=== PATIENT | female | born 1970 | race Caucasian/White ===

== ENCOUNTER 2016-11-10 12:51 | Inpatient (IN) | payer BC ==
--- NOTE | 2016-11-10 13:00 | ER Document Report ---
ED Medical Screen (RME) - General Stated Complaint: SHORTNESS OF BREATH Information source: Patient Notes: Patient complains of difficulty breathing x 4 days. Patient was given nebulizer treatments, Zofran, Rocephin and Solu-Medrol at her doctor's office prior to arrival. Temperature of 101, patient was given Tylenol per EMS. Patient brought a copy of her x-ray on disc. Pt was told she had pneumonia. hx: Diabetes, hypertension, asthma I have greeted and performed a rapid initial assessment of this patient. A comprehensive ED assessment and evaluation of the patient, analysis of test results and completion of the medical decision making process will be conducted by additional ED providers. Physical Exam - Vital signs Vitals: Temp Pulse Resp BP Pulse Ox 100.1 F 108 H 16 129/47 H 94 11/10/16 13:04 11/10/16 13:04 11/10/16 13:04 11/10/16 13:04 11/10/16 13:04 - Respiratory Respiratory status: No respiratory distress Breath sounds: Nonproductive cough, Rhonchi, Wheezing Course - Vital Signs Vital signs: Temp Pulse Resp BP Pulse Ox 100.1 F 108 H 16 129/47 H 94 11/10/16 13:04 11/10/16 13:04 11/10/16 13:04 11/10/16 13:04 11/10/16 13:04
[2016-11-10] MEDS ORDERED: IPRATROPIUM/ALBUTEROL 0.5-2.5 MG/3 ML AMPUL NEB ONE (13:20)
[2016-11-10 14:22] LABS: ABSOLUTE BASOPHILS # (AUTO) 0.1 10^3/uL (0.0-0.2); ABSOLUTE MONOCYTES (AUTO) 0.6 10^3/uL (0.1-1.4); ABSOLUTE NEUT (AUTO) 17.9 10^3/uL (1.7-8.2); BASOPHILS % (AUTO) 0.3 % (0-2); EOSINOPHILS % (AUTO) 0.1 % (0-6); HEMATOCRIT 37.4 % (36.0-47.0); HEMOGLOBIN 12.1 g/dL (12.0-15.5); HGB HCT DIFFERENCE -1.1; LYMPHOCYTES % (AUTO) 5.3 % (13-45); MEAN CORPUSCULAR HEMOGLOBIN 27.6 pg (27.0-33.4); MEAN CORPUSCULAR HGB CONC 32.3 g/dL (32.0-36.0); MEAN CORPUSCULAR VOLUME 86 fl (80-97); MONOCYTES % (AUTO) 2.9 % (3-13); RED BLOOD COUNT 4.38 10^6/uL (3.72-5.28); RED CELL DISTRIBUTION WIDTH 15.1 % (11.5-14.0); SEGMENTED NEUTROPHILS % (AUTO) 91.4 % (42-78); WHITE BLOOD COUNT 19.5 10^3/uL (4.0-10.5)
[2016-11-10 14:33] LABS: ALANINE AMINOTRANSFERASE 48 U/L (9-52); ALBUMIN 3.7 g/dL (3.5-5.0); ALKALINE PHOSPHATASE 143 U/L (38-126); ANION GAP 14 (5-19); ASPARTATE AMINO TRANSFERASE 31 U/L (14-36); BILIRUBIN,TOTAL 1.2 mg/dL (0.2-1.3); BLOOD UREA NITROGEN 17 mg/dL (7-20); CALCIUM 8.8 mg/dL (8.4-10.2); CARBON DIOXIDE 25 mmol/L (22-30); CHLORIDE 94 mmol/L (98-107); CREATININE RESULT 1.03 mg/dL (0.52-1.25); POTASSIUM 4.3 mmol/L (3.6-5.0); SODIUM 132.7 mmol/L (137-145); TOTAL PROTEIN 7.1 g/dL (6.3-8.2)
[2016-11-10 14:40] LABS: GLUCOSE 432 mg/dL (75-110)
[2016-11-10] MEDS ORDERED: NORMAL SALINE 1000 ML 1,000 ML IV ONE (16:19)
--- NOTE | 2016-11-10 17:29 | ER Document Report ---
ED Respiratory Problem - General Chief Complaint: Breathing Difficulty Stated Complaint: SHORTNESS OF BREATH Mode of Arrival: Ambulatory Information source: Patient Notes: 46-year-old female presents to the emergency department referred from [facility] urgent care for possible pneumonia and uncontrolled blood glucose. Patient reports was seen earlier today for cough, difficulty breathing , and chills that she has had for approximately the past 3 days. Reports history of type I diabetes but states does not know what her blood sugar is normally at home as she does not check it. Was found to be in the 400s at urgent care. Patient denies chest pain, shortness of breath, nausea or vomiting. Patient was given dose of Solu-Medrol IM, nebulized albuterol/ ipratropium, and 1 g Rocephin at urgent care prior to arrival. TRAVEL OUTSIDE OF THE [place] IN LAST 30 DAYS: No - HPI Patient complains to provider of: Cough, Short of breath Duration: Worse/persistent Initiating Event: URI Severity: Mild Short of Breath: Mild Cough: Productive Sputum amount: Small Sputum color: White Similar symptoms previously: Yes Recently seen / treated by doctor: Yes - Related Data Allergies/Adverse Reactions: erythromycin base Allergy (Verified 11/10/16 13:21) ketorolac [From Toradol] Allergy (Verified 11/10/16 13:21) Home Medications: Current Home Medications Chlorpheniramine Maleate [Chlortabs] 4 mg PO BID 11/10/16 [History] Fluticasone Propionate [Flonase Nasal [place] 50 Mcg/[place] 16 gm] 1 spray NASL Q12 11/10/16 [History] Hum Insulin NPH/Reg Insulin Hm [Insulin Inj 70-30 (100 Unit/1 ml) 3 ml Vial] 20 unit SUBCUT BID 11/10/16 [History] Insulin Glargine,Hum.rec.anlog [Lantus] 100 unit SQ QHS 11/10/16 [History] Insulin Regular, Human [Novolin R (Reg) Insulin 100 unit/mL] 30 unit SUBCUT BIDACBS 11/10/16 [History] Losartan/Hydrochlorothiazide [Hyzaar 100-25 Tablet] 1 each PO DAILY 11/10/16 [ History] Past Medical History - General Information source: Patient - Social History Smoking Status: Never Smoker Chew tobacco use (# tins/day): No Frequency of alcohol use: None Drug Abuse: None Lives with: Family Family History: Reviewed & Not Pertinent Patient has suicidal ideation: No Patient has homicidal ideation: No - Past Medical History Cardiac Medical History: Reports: Hx Hypercholesterolemia, Hx Hypertension Endocrine Medical History: Reports: Hx Diabetes Mellitus Type 1 Renal/ Medical History: Denies: Hx Peritoneal Dialysis Surgical Hx: Negative - Immunizations Hx Diphtheria, Pertussis, Tetanus Vaccination: Yes Review of Systems - Review of Systems Constitutional: See HPI EENT: No symptoms reported Cardiovascular: No symptoms reported Respiratory: See HPI Gastrointestinal: No symptoms reported Genitourinary: No symptoms reported Female Genitourinary: No symptoms reported Musculoskeletal: No symptoms reported Skin: No symptoms reported Hematologic/Lymphatic: No symptoms reported Neurological/Psychological: No symptoms reported -: Yes All other systems reviewed and negative Physical Exam - Vital signs Vitals: Temp Pulse Resp BP Pulse Ox 100.1 F 108 H 16 129/47 H 94 11/10/16 13:04 11/10/16 13:04 11/10/16 13:04 11/10/16 13:04 11/10/16 13:04 Interpretation: Normal - General General appearance: Alert In distress: None - HEENT Head: Normocephalic, Atraumatic Eyes: Normal Conjunctiva: Normal Eyelashes: Normal Pupils: PERRL Ears: Normal External canal: Normal Tympanic membrane: Normal Sinus: Normal Nasal: Normal Mouth/Lips: Normal Mucous membranes: Normal, Moist Pharynx: Normal. No: Blood in hypopharynx, Erythema, Exudate, Peritonsillar abscess, Post nasal drainage, Retropharyngeal abscess, Tonsillar hypertrophy, Uvular edema, Potential airway comprom., Other Neck: Normal. No: Anterior cervical chain, Posterior cervical chain, Lymphadenopathy, Meningismus, Subcutaneous emphysema - Respiratory Respiratory status: No respiratory distress Chest status: Nontender Breath sounds: Decreased air movement - Left lower, Productive cough. No: Rhonchi, Stridor, Wheezing Chest palpation: Normal - Cardiovascular Rhythm: Regular Heart sounds: Normal auscultation Murmur: No Pulses: Normal: Radial Normal capillary refill: Yes - Abdominal Inspection: Normal Distension: No distension Bowel sounds: Normal Tenderness: Nontender Organomegaly: No organomegaly - Back Back: Normal, Nontender - Extremities General upper extremity: Normal inspection, Nontender, Normal color, Normal ROM , Normal strength, Normal temperature. No: Tender, Edema General lower extremity: Normal inspection, Nontender, Normal color, Normal ROM , Normal strength, Normal temperature, Normal weight bearing. No: Tender, Edema - Neurological Neuro grossly intact: Yes Cognition: Normal Orientation: AAOx4 Ned Coma Scale Eye Opening: Spontaneous Ned Coma Scale Verbal: Oriented [place] Coma Scale Motor: Obeys Commands [place] Coma Scale Total: 15 Speech: Normal Motor strength normal: LUE, RUE, LLE, RLE Sensory: Normal - Psychological Associated symptoms: Normal affect, Normal mood - Skin Skin Temperature: Warm Skin Moisture: Dry Skin Color: Normal Skin Turgor: Elastic Course - Re-evaluation Re-evalutation: 11/10/16 17:30 Patient hemodynamically stable, in no distress, afebrile. Patient's blood glucose was 430 mg/dL patient took afternoon/evening dose of her home insulin and is currently receiving normal saline bolus. No suggestion of DKA at this time. Pending recheck blood glucose. Possible left lower lobe pneumonia on x- ray. Patient presentation and findings were discussed with hospitalist Dr. Zaman who agrees to assume care, evaluated in the ED, and admit patient to inpatient medical unit. Findings and plan discussed with patient who verbalized understanding and agrees with plan. Patient presentation and findings were discussed with ED physician Dr. Piper was involved in treatment plan per [facility] guidelines. - Vital Signs Vital signs: Temp Pulse Resp BP Pulse Ox 98.1 F 88 17 137/63 H 98 11/10/16 17:04 11/10/16 17:06 11/10/16 17:06 11/10/16 17:38 11/10/16 17:38 - Laboratory Result Diagrams: 11/10/16 13:45 11/10/16 13:45 Laboratory results interpreted by me: 11/10/16 11/10/16 11/10/16 13:45 13:45 16:27 WBC 19.5 H RDW 15.1 H Seg Neutrophils % 91.4 H Lymphocytes % 5.3 L Monocytes % 2.9 L Absolute Neutrophils 17.9 H Sodium 132.7 L Chloride 94 L Est GFR (Non-Af Amer) 57 L Glucose 432 H* POC Glucose 431 H* Alkaline Phosphatase 143 H - Diagnostic Test Radiology reviewed: Image reviewed, Reports reviewed Discharge - Discharge Clinical Impression: Hyperglycemia Pneumonia Qualifiers: Pneumonia type: due to unspecified organism Laterality: left Lung location: lower lobe of lung Qualified Code(s): J18.1 - Lobar pneumonia, unspecified organism Condition: Stable Disposition: ADMITTED INPATIENT Admitting Provider: [facility] Unit Admitted: Medical Floor
[2016-11-10] MEDS ORDERED: DEXTROSE 50%-WATER 25 GM/50 ML DISP.SYRIN IV PRN ×2 (18:02)
[2016-11-10] MEDS ORDERED: DEXTROSE 40% GEL 15 GM TUBE PO PRN ×2 (18:02)
[2016-11-10] MEDS ORDERED: GLUCAGON,HUMAN RECOMB 1 MG INJ IM PRN (18:02)
--- NOTE | 2016-11-10 18:17 | PDOC H&P ---
History of Present Illness Admission Date/PCP: 11/10/16 17:44 DENNIS HAQUE MD Patient complains of: Shortness of breath History of Present Illness: JAEL KEY is a 46 year old female Was sent to the ED by her primary care physician Patient has been treated for pneumonia, and was seen in the office today She was febrile somewhat tachypneic wheezing and was sent to the ED for evaluation In the ED patient was diagnosed with pneumonia with a left lower lobe infiltrate on chest x-ray The white blood count was 19,000, and her blood sugar over 400 She was subsequently admitted under hospitalist service to medical unit Past Medical History Cardiac Medical History: Reports: Hyperlipidema, Hypertension Endocrine Medical History: Reports: Diabetes Mellitus Type 1 - Since age 8 Social History Information Source: Patient Lives with: Family Smoking Status: Never Smoker Frequency of Alcohol Use: None Hx Recreational Drug Use: No - Advance Directive Resuscitation Status: Full Code Surrogate healthcare decision maker:: Mother Rolando Family History Parental Family History Reviewed: Yes - grand ma DM CAD-ants uncles CAD Ca Children Family History Reviewed: Yes Sibling(s) Family History Reviewed.: Yes Medication/Allergy Home Medications: Chlorpheniramine Maleate [Chlortabs] 4 mg PO BID 11/10/16 Fluticasone Propionate [Flonase Nasal [place] 50 Mcg/[place] 16 gm] 1 spray NASL Q12 11/10/16 Hum Insulin NPH/Reg Insulin Hm [Insulin Inj 70-30 (100 Unit/1 ml) 3 ml Vial] 20 unit SUBCUT BID 11/10/16 Insulin Glargine,Hum.rec.anlog [Lantus] 100 unit SQ QHS 11/10/16 Insulin Regular, Human [Novolin R (Reg) Insulin 100 unit/mL] 30 unit SUBCUT BIDACBS 11/10/16 Losartan/Hydrochlorothiazide [Hyzaar 100-25 Tablet] 1 each PO DAILY 11/10/16 Allergies/Adverse Reactions: erythromycin base Allergy (Verified 11/10/16 13:21) ketorolac [From Toradol] Allergy (Verified 11/10/16 13:21) Review of Systems Constitutional: ABSENT: chills, fever(s), headache(s), weight gain, weight loss Eyes: ABSENT: visual disturbances Ears: ABSENT: hearing changes Cardiovascular: ABSENT: chest pain, dyspnea on exertion, edema, orthropnea, palpitations Respiratory: PRESENT: as per HPI, cough, dyspnea, sputum. ABSENT: hemoptysis Gastrointestinal: ABSENT: abdominal pain, constipation, diarrhea, hematemesis, hematochezia, nausea, vomiting Genitourinary: ABSENT: dysuria, hematuria Musculoskeletal: ABSENT: joint swelling Integumentary: ABSENT: rash, wounds Neurological: ABSENT: abnormal gait, abnormal speech, confusion, dizziness, focal weakness, syncope Psychiatric: ABSENT: anxiety, depression, homidical ideation, suicidal ideation Endocrine: ABSENT: cold intolerance, heat intolerance, polydipsia, polyuria Hematologic/Lymphatic: ABSENT: easy bleeding, easy bruising Physical Exam Vital Signs: Temp Pulse Resp BP Pulse Ox 98.1 F 88 17 137/63 H 98 11/10/16 17:04 11/10/16 17:06 11/10/16 17:06 11/10/16 17:38 11/10/16 17:38 General appearance: PRESENT: no acute distress, well-developed, well-nourished Head exam: PRESENT: atraumatic, normocephalic Eye exam: PRESENT: conjunctiva pink, EOMI, PERRLA. ABSENT: scleral icterus Ear exam: PRESENT: normal external ear exam Mouth exam: PRESENT: moist, tongue midline Neck exam: ABSENT: carotid bruit, JVD, lymphadenopathy, thyromegaly Respiratory exam: PRESENT: wheezes. ABSENT: rales, rhonchi Cardiovascular exam: PRESENT: RRR. ABSENT: diastolic murmur, rubs, systolic murmur Pulses: PRESENT: normal dorsalis pedis pul Vascular exam: PRESENT: normal capillary refill GI/Abdominal exam: PRESENT: normal bowel sounds, soft. ABSENT: distended, guarding, mass, organolmegaly, rebound, tenderness Rectal exam: PRESENT: deferred Extremities exam: PRESENT: full ROM. ABSENT: calf tenderness, clubbing, pedal edema Neurological exam: PRESENT: alert, awake, oriented to person, oriented to place , oriented to time, oriented to situation, CN II-XII grossly intact. ABSENT: motor sensory deficit Psychiatric exam: PRESENT: appropriate affect, normal mood. ABSENT: homicidal ideation, suicidal ideation Skin exam: PRESENT: dry, intact, warm. ABSENT: cyanosis, rash Results Laboratory Results: Labs- Last Values WBC 19.5 10^3/uL (4.0-10.5) H 11/10/16 13:45 RBC 4.38 10^6/uL (3.72-5.28) 11/10/16 13:45 Hgb 12.1 g/dL (12.0-15.5) 11/10/16 13:45 Hct 37.4 % (36.0-47.0) 11/10/16 13:45 MCV 86 fl (80-97) 11/10/16 13:45 MCH 27.6 pg (27.0-33.4) 11/10/16 13:45 MCHC 32.3 g/dL (32.0-36.0) 11/10/16 13:45 RDW 15.1 % (11.5-14.0) H 11/10/16 13:45 Plt Count 309 10^3/uL (150-450) 11/10/16 13:45 Seg Neutrophils % 91.4 % (42-78) H 11/10/16 13:45 Lymphocytes % 5.3 % (13-45) L 11/10/16 13:45 Monocytes % 2.9 % (3-13) L 11/10/16 13:45 Eosinophils % 0.1 % (0-6) 11/10/16 13:45 Basophils % 0.3 % (0-2) 11/10/16 13:45 Absolute Neutrophils 17.9 10^3/uL (1.7-8.2) H 11/10/16 13:45 Absolute Lymphocytes 1.0 10^3/uL (0.5-4.7) 11/10/16 13:45 Absolute Monocytes 0.6 10^3/uL (0.1-1.4) 11/10/16 13:45 Absolute Eosinophils 0.0 10^3/uL (0.0-0.6) 11/10/16 13:45 Absolute Basophils 0.1 10^3/uL (0.0-0.2) 11/10/16 13:45 Sodium 132.7 mmol/L (137-145) L 11/10/16 13:45 Potassium 4.3 mmol/L (3.6-5.0) 11/10/16 13:45 Chloride 94 mmol/L (98-107) L 11/10/16 13:45 Carbon Dioxide 25 mmol/L (22-30) 11/10/16 13:45 Anion Gap 14 (5-19) 11/10/16 13:45 BUN 17 mg/dL (7-20) 11/10/16 13:45 Creatinine 1.03 mg/dL (0.52-1.25) 11/10/16 13:45 Est GFR ( Amer) > 60 (>60) 11/10/16 13:45 Est GFR (Non-Af Amer) 57 (>60) L 11/10/16 13:45 Glucose 432 mg/dL (75-110) H* 11/10/16 13:45 POC Glucose 431 mg/dL (70-110) H* 11/10/16 16:27 Calcium 8.8 mg/dL (8.4-10.2) 11/10/16 13:45 Total Bilirubin 1.2 mg/dL (0.2-1.3) 11/10/16 13:45 Direct Bilirubin 0.0 mg/dL (0.0-0.3) 11/10/16 13:45 AST 31 U/L (14-36) 11/10/16 13:45 ALT 48 U/L (9-52) 11/10/16 13:45 Alkaline Phosphatase 143 U/L (38-126) H 11/10/16 13:45 Total Protein 7.1 g/dL (6.3-8.2) 11/10/16 13:45 Albumin 3.7 g/dL (3.5-5.0) 11/10/16 13:45 Serum HCG, Qual NEGATIVE (NEGATIVE) 11/10/16 13:45 EKG Comments: SINUS TACHYCARDIA [AMI4] . ABNRM R PROG, CONSIDER ASMI OR LEAD PLACEMENT [id number] JAEL KEY 10-Nov-2016 13:35:28 Impressions: Chest X-Ray 11/10/16 16:31 IMPRESSION: Low lung volumes. Suspicious for left pneumonia. Assessment & Plan - Diagnosis (1) Hyperglycemia Is this a current diagnosis for this admission?: YesPlan: continue patient home regimen (2) Pneumonia Qualifiers: Pneumonia type: due to unspecified organism Laterality: left Lung location: lower lobe of lung Qualified Code(s): J18.1 - Lobar pneumonia, unspecified organism Is this a current diagnosis for this admission?: YesPlan: continue ceftriaxone and zithromax sputum for culture influenza screen pending (3) Asthma Qualifiers: Asthma complication type: with acute exacerbation Is this a current diagnosis for this admission?: YesPlan: duonebs advair avoid systemic steroids - Time Time Spent: 50 to 70 Minutes - Inpatient Certification Based on my medical assessment, after consideration of the patient's comorbidities, presenting symptoms, or acuity I expect that the services needed warrant INPATIENT care.: Yes I certify that my determination is in accordance with my understanding of Medicare's requirements for reasonable and necessary INPATIENT services [42 CFR 412.3e].: Yes Medical Necessity: Failure to Improve With Outpatient Therapy, Need for Nebulizer Therapy and Monitoring of Response, Need for IV Antibiotics
[2016-11-10] MEDS ORDERED: FLUTICASONE/SALMETEROL DISKUS 250-50 MCG/DOSE IH ONE (18:45)
[2016-11-10] MEDS ORDERED: INSULIN REG, HUMAN 100 UNIT/ML 3 ML VIAL (PYX) SUBCUT SCH (18:56)
[2016-11-10] MEDS ORDERED: LEVOFLOXACIN 750 MG/D5W RTU 750 MG/150 ML RTUPB IV ONE (19:00)
[2016-11-10] MEDS ORDERED: INSULIN NPH (ISOPHANE), HUMAN 100 UNIT/ML 3 ML SUBCUT ONE (20:00)
[2016-11-10] MEDS: IPRATROPIUM/ALBUTEROL 0.5-2.5 MG/3 ML AMPUL NEB SCH (20:03)
--- NOTE | 2016-11-10 21:54 | EKG REPORT ---
SEVERITY:- ABNORMAL ECG - SINUS TACHYCARDIA ABNRM R PROG, CONSIDER ASMI OR LEAD PLACEMENT : Confirmed by: Thiago Russo 10-Nov-2016 21:53:29
[2016-11-10] MEDS ORDERED: INSULIN GLARGINE,HUM.REC.ANLOG 300 UNIT/3 ML INSULN.PEN SUBCUT SCH (22:00)
[2016-11-11] MEDS ORDERED: INSULIN LISPRO 100 UNIT/ML 3 ML VIAL SUBCUT ONE (06:00)
[2016-11-11] MEDS: NORMAL SALINE 1000 ML 1,000 ML IV PRN ×2 (06:02→15:30)
[2016-11-11 06:08] LABS: MEAN CORPUSCULAR VOLUME 87 fl (80-97)
[2016-11-11 06:16] LABS: HEMATOCRIT 34.8 % (36.0-47.0); HGB HCT DIFFERENCE -1.8; MEAN CORPUSCULAR HEMOGLOBIN 27.5 pg (27.0-33.4); MEAN CORPUSCULAR HGB CONC 31.8 g/dL (32.0-36.0); RED BLOOD COUNT 4.02 10^6/uL (3.72-5.28); RED CELL DISTRIBUTION WIDTH 15.4 % (11.5-14.0); WHITE BLOOD COUNT 20.6 10^3/uL (4.0-10.5)
[2016-11-11 06:31] LABS: ALANINE AMINOTRANSFERASE 41 U/L (9-52); ALBUMIN 3.3 g/dL (3.5-5.0); ALKALINE PHOSPHATASE 121 U/L (38-126); ANION GAP 13 (5-19); ASPARTATE AMINO TRANSFERASE 26 U/L (14-36); BASOPHILS % (MANUAL) 0 % (0-2); BILIRUBIN,TOTAL 0.5 mg/dL (0.2-1.3); CALCIUM 8.3 mg/dL (8.4-10.2); CARBON DIOXIDE 24 mmol/L (22-30); CHLORIDE 94 mmol/L (98-107); CREATININE RESULT 1.23 mg/dL (0.52-1.25); EOSINOPHILS % (MANUAL) 0 % (0-6); LYMPHOCYTES % (MANUAL) 5 % (13-45); POTASSIUM 5.2 mmol/L (3.6-5.0); SODIUM 130.9 mmol/L (137-145); TOTAL CELLS COUNTED 100; TOTAL PROTEIN 6.6 g/dL (6.3-8.2)
[2016-11-11 06:32] LABS: RBC MORPHOLOGY COMMENT NORMO-CYTIC/CHROMIC; TOXIC GRANULATION SLIGHT
[2016-11-11 06:43] LABS: BLOOD UREA NITROGEN 36 mg/dL (7-20)
[2016-11-11 06:50] LABS: GLUCOSE 609 mg/dL (75-110)
[2016-11-11] MEDS: INSULIN NPH (ISOPHANE), HUMAN 100 UNIT/ML 3 ML SUBCUT SCH ×2 (07:41→15:35)
[2016-11-11] MEDS: ENOXAPARIN SODIUM INJ 40 MG/0.4 ML DISP.SYRIN SUBCUT SCH (07:42)
[2016-11-11] MEDS ORDERED: INSULIN NPH (ISOPHANE), HUMAN 100 UNIT/ML 3 ML SUBCUT SCH (08:00)
[2016-11-11] MEDS ORDERED: INSULIN REG, HUMAN 100 UNIT/ML 3 ML VIAL (PYX) SUBCUT SCH ×2 (08:00→16:00)
[2016-11-11] MEDS: IPRATROPIUM/ALBUTEROL 0.5-2.5 MG/3 ML AMPUL NEB SCH ×3 (08:06→19:39)
[2016-11-11] MEDS: FLUTICASONE/SALMETEROL DISKUS 250-50 MCG/DOSE IH SCH ×2 (09:03→21:35)
[2016-11-11] MEDS: HYDROCHLOROTHIAZIDE 25 MG TABLET PO SCH (09:04)
[2016-11-11] MEDS: LOSARTAN POTASSIUM 50 MG TABLET PO SCH (09:05)
[2016-11-11] MEDS: FLUTICASONE NASAL SPRAY 50 MCG/SPRY 120 SPRAY/16 GM NASL SCH ×3 (10:36→21:26)
[2016-11-11] MEDS: CHLORPHENIRAMINE MALEATE 4 MG TABLET PO SCH ×2 (10:36→17:18)
[2016-11-11] MEDS: INSULIN LISPRO 100 UNIT/ML 3 ML VIAL SUBCUT PRN ×2 (11:21→21:34)
[2016-11-11] MEDS: INSULIN REG, HUMAN 100 UNIT/ML 3 ML VIAL (PYX) SUBCUT SCH (15:37)
[2016-11-11] MEDS ORDERED: INSULIN REGULAR HUMAN SUBCUT SCH (16:00)
[2016-11-11] MEDS ORDERED: [UNRECOGNIZED DRUG - OTHER] SUBCUT SCH (16:00)
--- NOTE | 2016-11-11 17:15 | PDOC PROGRESS REPORT ---
Subjective Progress Note for:: 11/11/16 Subjective:: Patient is feeling better in general but her blood sugars are very elevated she has no shortness of breath no chest pain She did receive yesterday a large dose of steroids which may have elevated blood sugars Physical Exam Vital Signs: Temp Pulse Resp BP Pulse Ox 97.7 F 86 19 132/57 H 98 11/11/16 16:11 11/11/16 16:11 11/11/16 16:11 11/11/16 16:11 11/11/16 16:11 Intake & Output 11/10/16 11/11/16 11/12/16 00:59 00:59 00:59 Intake Total 350 Output Total 500 Balance -150 Weight 109 kg General appearance: PRESENT: no acute distress, morbidly obese Head exam: PRESENT: atraumatic, normocephalic Eye exam: PRESENT: conjunctiva pink, EOMI, PERRLA. ABSENT: scleral icterus Ear exam: PRESENT: normal external ear exam Mouth exam: PRESENT: moist, tongue midline Neck exam: ABSENT: carotid bruit, JVD, lymphadenopathy, thyromegaly Respiratory exam: PRESENT: clear to auscultation jing. ABSENT: rales, rhonchi, wheezes Cardiovascular exam: PRESENT: RRR. ABSENT: diastolic murmur, rubs, systolic murmur Pulses: PRESENT: normal dorsalis pedis pul Vascular exam: PRESENT: normal capillary refill GI/Abdominal exam: PRESENT: normal bowel sounds, soft. ABSENT: distended, guarding, mass, organolmegaly, rebound, tenderness Rectal exam: PRESENT: deferred Extremities exam: PRESENT: full ROM. ABSENT: calf tenderness, clubbing, pedal edema Neurological exam: PRESENT: alert, awake, oriented to person, oriented to place , oriented to time, oriented to situation, CN II-XII grossly intact. ABSENT: motor sensory deficit Psychiatric exam: PRESENT: appropriate affect, normal mood. ABSENT: homicidal ideation, suicidal ideation Skin exam: PRESENT: dry, intact, warm. ABSENT: cyanosis, rash Results Laboratory Results: 11/11/16 05:51 11/11/16 05:51 11/11/16 11/11/16 11/11/16 05:51 05:51 05:51 WBC 20.6 H RBC 4.02 Hgb 11.0 L Hct 34.8 L MCV 87 MCH 27.5 MCHC 31.8 L RDW 15.4 H Plt Count 303 Seg Neutrophils % Not Reportable Lymphocytes % Not Reportable Monocytes % Not Reportable Eosinophils % Not Reportable Basophils % Not Reportable Absolute Neutrophils Not Reportable Absolute Lymphocytes Not Reportable Absolute Monocytes Not Reportable Absolute Eosinophils Not Reportable Absolute Basophils Not Reportable Sodium 130.9 L Potassium 5.2 H Chloride 94 L Carbon Dioxide 24 Anion Gap 13 BUN 36 H Creatinine 1.23 Est GFR ( Amer) 57 L Est GFR (Non-Af Amer) 47 L Glucose 609 H* Calcium 8.3 L Total Bilirubin 0.5 AST 26 ALT 41 Alkaline Phosphatase 121 Total Protein 6.6 Albumin 3.3 L TSH 0.50 Impressions: Chest X-Ray 11/10/16 16:31 IMPRESSION: Low lung volumes. Suspicious for left pneumonia. Assessment & Plan - Diagnosis (1) Hyperglycemia Is this a current diagnosis for this admission?: YesPlan: 11/11/16 11/11/16 11/11/16 05:33 05:51 11:08 Glucose 609 H* POC Glucose > 550 H* 425 H* 11/11/16 15:14 Glucose POC Glucose 389 H We will increase Lantus insulin and give it twice a day at 60 units subcutaneous Continue otherwise patient's regimen Avoid by mouth prednisone Continue antibiotic management (2) Pneumonia Qualifiers: Pneumonia type: due to unspecified organism Laterality: left Lung location: lower lobe of lung Qualified Code(s): J18.1 - Lobar pneumonia, unspecified organism Is this a current diagnosis for this admission?: YesPlan: Continue present antibiotics Sputum culture pending (3) Asthma Qualifiers: Asthma complication type: with acute exacerbation Is this a current diagnosis for this admission?: YesPlan: We will treat with nebs and inhaled steroid steroids - Time Time Spent with patient: 25-34 minutes Within: within 48 hours
[2016-11-11] MEDS: GUAIFENESIN 600 MG TABLET.SA PO SCH (17:40)
[2016-11-11] MEDS ORDERED: LEVOFLOXACIN 750 MG/D5W RTU 750 MG/150 ML RTUPB IV SCH (18:00)
[2016-11-11] MEDS: INSULIN GLARGINE,HUM.REC.ANLOG 300 UNIT/3 ML INSULN.PEN SUBCUT SCH (21:31)
[2016-11-12] MEDS: GUAIFENESIN 600 MG TABLET.SA PO SCH ×2 (05:42→17:58)
[2016-11-12] MEDS: IPRATROPIUM/ALBUTEROL 0.5-2.5 MG/3 ML AMPUL NEB SCH ×3 (08:32→19:40)
[2016-11-12] MEDS: ENOXAPARIN SODIUM INJ 40 MG/0.4 ML DISP.SYRIN SUBCUT SCH (08:37)
[2016-11-12] MEDS: INSULIN REG, HUMAN 100 UNIT/ML 3 ML VIAL (PYX) SUBCUT SCH ×2 (08:37→18:00)
[2016-11-12] MEDS: INSULIN NPH (ISOPHANE), HUMAN 100 UNIT/ML 3 ML SUBCUT SCH ×2 (08:38→17:59)
[2016-11-12] MEDS: NORMAL SALINE 1000 ML 1,000 ML IV PRN (08:39)
[2016-11-12] MEDS: INSULIN GLARGINE,HUM.REC.ANLOG 300 UNIT/3 ML INSULN.PEN SUBCUT SCH ×2 (09:56→22:12)
[2016-11-12] MEDS: LOSARTAN POTASSIUM 50 MG TABLET PO SCH (09:58)
[2016-11-12] MEDS: CHLORPHENIRAMINE MALEATE 4 MG TABLET PO SCH ×2 (09:59→17:54)
[2016-11-12] MEDS: HYDROCHLOROTHIAZIDE 25 MG TABLET PO SCH (09:59)
[2016-11-12] MEDS: FLUTICASONE NASAL SPRAY 50 MCG/SPRY 120 SPRAY/16 GM NASL SCH ×2 (09:59→22:16)
[2016-11-12] MEDS: FLUTICASONE/SALMETEROL DISKUS 250-50 MCG/DOSE IH SCH ×2 (09:59→22:16)
[2016-11-12] MEDS: CEFTRIAXONE 2 GM/D5W RTU 2 GM/50 ML RTUPB IV SCH (13:00)
[2016-11-12] MEDS: FLUCONAZOLE 100 MG TABLET PO SCH (13:01)
--- NOTE | 2016-11-12 15:30 | PDOC PROGRESS REPORT ---
Subjective Progress Note for:: 11/12/16 Subjective:: Reason for visit: Follow-up pneumonia, hyperglycemia Hospital course: Per H&P "JAEL KEY is a 46 year old female Was sent to the ED by her primary care physician Patient has been treated for pneumonia, and was seen in the office today She was febrile somewhat tachypneic wheezing and was sent to the ED for evaluation In the ED patient was diagnosed with pneumonia with a left lower lobe infiltrate on chest x-ray The white blood count was 19,000, and her blood sugar over 400 She was subsequently admitted under hospitalist service to medical unit." She was admitted and placed on broad-spectrum antibiotics with Levaquin, her sputum culture is showing gram-positive diplococci most likely consistent with strep pneumonia and her condition is only minimally improved. Her antibiotics were changed to high-dose Rocephin today. Her blood sugars have been problematic during this hospitalization likely related to the infection. She takes an unusual regimen at home including morning doses of 30 units of regular insulin with 20 units of 70/30 and evening doses of the same amounts with an additional 100 units of Lantus. Subjective: Overall states she feels better than when she came in, still having cough but no chest pain or palpitations, no fevers or chills. She is reporting some vaginal itching and burning with urination worrisome for developing yeast infection which is common for her during antibiotic therapy. ROS: per HPI plus a total of 10 systems reviewed, pertinent positives and negatives noted above, remaining systems negative. Physical Exam Vital Signs: Temp Pulse Resp BP Pulse Ox 98.4 F 86 15 134/57 H 97 11/12/16 11:27 11/12/16 14:13 11/12/16 14:13 11/12/16 11:27 11/12/16 11:27 Intake & Output 11/11/16 11/12/16 11/13/16 06:59 06:59 06:59 Intake Total 2934 Output Total 2620 Balance 314 Weight 109 kg 109.1 kg EXAM GENERAL: NAD; well developed, well nourished; obese; alert and oriented to person, place, time, situation HEENT: normocephalic, atraumatic; no conjunctival injection, no scleral icterus ; oral mucosa moist; RESPIRATORY: no accessory muscle use, no increased WOB, good air entry bilaterally; end expiratory wheezes and bilateral left greater than right inspiratory crackles, but no rales or rhonchi; es CARDIO: no JVD; RRR; soft decrescendo systolic murmur second intercostal space; no tachycardia GI: soft; nondistended; normal bowel sounds; no hepato spleno megaly; no rebound, rigidity, guarding; nontender VASCULAR: no carotid bruit; no abdominal bruit; no pallor; 2+ radial, DP pulse ; normal capillary refill EXTREMITIES: no calf tender; no palpable cords in calf; no clubbing, cyanosis ; bilateral nonpitting pedal edema PSYCH: normal affect, normal mood SKIN: warm; moist; no petechiae; no telengectasias; no jaundice; no rash Results Laboratory Results: 11/11/16 05:51 11/11/16 05:51 Labs reviewed, leukocytosis not improved Impressions: Chest X-Ray 11/10/16 16:31 IMPRESSION: Low lung volumes. Suspicious for left pneumonia. Status: Imported from PACS - Report reviewed Assessment & Plan - Diagnosis (1) Pneumonia Qualifiers: Pneumonia type: due to group B Streptococcus Laterality: left Lung location: lower lobe of lung Qualified Code(s): J15.3 - Pneumonia due to streptococcus, group B Is this a current diagnosis for this admission?: YesPlan: Change to Rocephin and monitor for response. (2) Vaginal yeast infection Is this a current diagnosis for this admission?: YesPlan: Add oral Diflucan and monitor for response. (3) Diabetes 1.5, managed as type 1 Is this a current diagnosis for this admission?: YesPlan: Current regimen seems to be working, continue same and adjust long-acting insulin as needed. Hopefully will improve as her infection is treated. (4) Sepsis Is this a current diagnosis for this admission?: YesPlan: Unchanged. Evidenced by tachycardia, leukocytosis and source. (5) Acute respiratory failure with hypoxia Is this a current diagnosis for this admission?: YesPlan: Requiring 2 L supplemental oxygen to maintain adequate saturations. Likely secondary to the above. Continue attempts at treatment of the underlying pneumonia and wean O2 as tolerated. Continue incentive spirometer - Time Time Spent with patient: 35 or more minutes Medications reviewed and adjusted accordingly: Yes Anticipated discharge: Home Within: within 24 hours
[2016-11-12] MEDS ORDERED: KETOROLAC TROMETHAMINE INJ/PF 30 MG/1 ML SDV IV PRN (18:08)
[2016-11-12] MEDS ORDERED: ACETAMINOPHEN 325 MG TABLET PO PRN (18:08)
[2016-11-13] MEDS: GUAIFENESIN 600 MG TABLET.SA PO SCH ×2 (05:30→17:51)
[2016-11-13 05:57] LABS: ABSOLUTE BASOPHILS # (AUTO) 0.1 10^3/uL (0.0-0.2); ABSOLUTE EOSINOPHILS # (AUTO) 0.1 10^3/uL (0.0-0.6); ABSOLUTE LYMPHOCYTES (AUTO) 3.2 10^3/uL (0.5-4.7); ABSOLUTE MONOCYTES (AUTO) 0.8 10^3/uL (0.1-1.4); ABSOLUTE NEUT (AUTO) 6.3 10^3/uL (1.7-8.2); BASOPHILS % (AUTO) 1.2 % (0-2); EOSINOPHILS % (AUTO) 1.4 % (0-6); HEMATOCRIT 31.1 % (36.0-47.0); HGB HCT DIFFERENCE -1.1; MEAN CORPUSCULAR HEMOGLOBIN 27.7 pg (27.0-33.4); MEAN CORPUSCULAR HGB CONC 32.2 g/dL (32.0-36.0); MEAN CORPUSCULAR VOLUME 86 fl (80-97); MONOCYTES % (AUTO) 7.8 % (3-13); RED BLOOD COUNT 3.62 10^6/uL (3.72-5.28); SEGMENTED NEUTROPHILS % (AUTO) 59.6 % (42-78); WHITE BLOOD COUNT 10.5 10^3/uL (4.0-10.5)
[2016-11-13 06:19] LABS: ANION GAP 10 (5-19); BLOOD UREA NITROGEN 20 mg/dL (7-20); CALCIUM 8.7 mg/dL (8.4-10.2); CARBON DIOXIDE 27 mmol/L (22-30); CHLORIDE 103 mmol/L (98-107); CREATININE RESULT 0.85 mg/dL (0.52-1.25); GLUCOSE 86 mg/dL (75-110); POTASSIUM 3.6 mmol/L (3.6-5.0); SODIUM 139.5 mmol/L (137-145)
[2016-11-13] MEDS: IPRATROPIUM/ALBUTEROL 0.5-2.5 MG/3 ML AMPUL NEB SCH ×3 (08:03→19:59)
[2016-11-13] MEDS: ENOXAPARIN SODIUM INJ 40 MG/0.4 ML DISP.SYRIN SUBCUT SCH (08:25)
[2016-11-13] MEDS: INSULIN NPH (ISOPHANE), HUMAN 100 UNIT/ML 3 ML SUBCUT SCH ×2 (08:28→17:54)
[2016-11-13] MEDS: INSULIN REG, HUMAN 100 UNIT/ML 3 ML VIAL (PYX) SUBCUT SCH ×2 (08:28→17:55)
[2016-11-13] MEDS: CHLORPHENIRAMINE MALEATE 4 MG TABLET PO SCH ×2 (09:21→17:36)
[2016-11-13] MEDS: FLUTICASONE NASAL SPRAY 50 MCG/SPRY 120 SPRAY/16 GM NASL SCH ×2 (09:21→22:55)
[2016-11-13] MEDS: FLUTICASONE/SALMETEROL DISKUS 250-50 MCG/DOSE IH SCH ×2 (09:21→22:55)
[2016-11-13] MEDS: LOSARTAN POTASSIUM 50 MG TABLET PO SCH (09:23)
[2016-11-13] MEDS: HYDROCHLOROTHIAZIDE 25 MG TABLET PO SCH (09:23)
[2016-11-13] MEDS: INSULIN GLARGINE,HUM.REC.ANLOG 300 UNIT/3 ML INSULN.PEN SUBCUT SCH ×2 (09:24→23:05)
[2016-11-13] MEDS: CEFTRIAXONE 2 GM/D5W RTU 2 GM/50 ML RTUPB IV SCH (12:17)
[2016-11-13] MEDS: FLUCONAZOLE 100 MG TABLET PO SCH (12:18)
--- NOTE | 2016-11-13 12:38 | PDOC PROGRESS REPORT ---
Subjective Progress Note for:: 11/13/16 Subjective:: Reason for visit: Follow-up pneumonia, hyperglycemia Hospital course: Per H&P "JAEL KEY is a 46 year old female Was sent to the ED by her primary care physician Patient has been treated for pneumonia, and was seen in the office today She was febrile somewhat tachypneic wheezing and was sent to the ED for evaluation In the ED patient was diagnosed with pneumonia with a left lower lobe infiltrate on chest x-ray The white blood count was 19,000, and her blood sugar over 400 She was subsequently admitted under hospitalist service to medical unit." She was admitted and placed on broad-spectrum antibiotics with Levaquin, her sputum culture is showing gram-positive diplococci most likely consistent with strep pneumonia and her condition is only minimally improved. Her antibiotics were changed to high-dose Rocephin on 11/13/2016. Her blood sugars have been problematic during this hospitalization likely related to the infection. She takes an unusual regimen at home including morning doses of 30 units of regular insulin with 20 units of 70/30 and evening doses of the same amounts with an additional 100 units of Lantus. Subjective: No new events overnight, continues to have dyspnea with exertion and room air sat of mid 80s, still complaining of cough but no chest pain no fever or chills, nausea or vomiting, diarrhea or constipation. ROS: per HPI plus a total of 10 systems reviewed, pertinent positives and negatives noted above, remaining systems negative. Physical Exam Vital Signs: Temp Pulse Resp BP Pulse Ox 98.5 F 87 16 132/58 H 95 11/13/16 11:25 11/13/16 11:25 11/13/16 11:25 11/13/16 11:25 11/13/16 11:25 Intake & Output 11/12/16 11/13/16 11/14/16 06:59 06:59 06:59 Intake Total 2939 2958 Output Total 2620 8000 Balance 314 -842 Weight 109.1 kg 114.7 kg EXAM GENERAL: NAD; well developed, well nourished; obese; alert and oriented to person, place, time, situation HEENT: normocephalic, atraumatic; no conjunctival injection, no scleral icterus ; oral mucosa moist; RESPIRATORY: no accessory muscle use, no increased WOB, good air entry bilaterally; end expiratory wheezes bilateral left greater than right inspiratory crackles, but no rales or rhonchi CARDIO: no JVD; RRR; soft decrescendo systolic murmur second intercostal space; no tachycardia GI: soft; nondistended; normal bowel sounds; no hepato spleno megaly; no rebound, rigidity, guarding; nontender VASCULAR: no carotid bruit; no abdominal bruit; no pallor; 2+ radial, DP pulse ; normal capillary refill EXTREMITIES: no calf tender; no palpable cords in calf; no clubbing, cyanosis ; bilateral nonpitting pedal edema PSYCH: normal affect, normal mood SKIN: warm; moist; no petechiae; no telengectasias; no jaundice; no rash Results Laboratory Results: 11/13/16 04:33 11/13/16 04:33 11/13/16 11/13/16 04:33 04:33 WBC 10.5 RBC 3.62 L Hgb 10.0 L Hct 31.1 L MCV 86 MCH 27.7 MCHC 32.2 RDW 15.0 H Plt Count 234 Seg Neutrophils % 59.6 Lymphocytes % 30.0 Monocytes % 7.8 Eosinophils % 1.4 Basophils % 1.2 Absolute Neutrophils 6.3 Absolute Lymphocytes 3.2 Absolute Monocytes 0.8 Absolute Eosinophils 0.1 Absolute Basophils 0.1 Sodium 139.5 Potassium 3.6 Chloride 103 Carbon Dioxide 27 Anion Gap 10 BUN 20 Creatinine 0.85 Est GFR ( Amer) > 60 Est GFR (Non-Af Amer) > 60 Glucose 86 Calcium 8.7 Labs reviewed, no significant change in CBC or basic metabolic panel. Assessment & Plan - Diagnosis (1) Pneumonia Qualifiers: Pneumonia type: due to group B Streptococcus Laterality: left Lung location: lower lobe of lung Qualified Code(s): J15.3 - Pneumonia due to streptococcus, group B Is this a current diagnosis for this admission?: YesPlan: Slowly improved. Continue Rocephin and monitor for response. (2) Vaginal yeast infection Is this a current diagnosis for this admission?: YesPlan: Added oral Diflucan with improvement. (3) Diabetes 1.5, managed as type 1 Is this a current diagnosis for this admission?: YesPlan: Current regimen seems to be working, continue same and adjust long-acting insulin as needed. (4) Sepsis Is this a current diagnosis for this admission?: YesPlan: Improved. Evidenced by tachycardia, leukocytosis and source. (5) Acute respiratory failure with hypoxia Is this a current diagnosis for this admission?: YesPlan: Improved but still hypoxic on room air, Requiring 2 L supplemental oxygen to maintain adequate saturations. Likely secondary to the above. Continue attempts at treatment of the underlying pneumonia and wean O2 as tolerated. Continue incentive spirometer and increase activity as tolerated. - Time Time Spent with patient: 25-34 minutes Medications reviewed and adjusted accordingly: Yes Anticipated discharge: Home Within: within 24 hours
[2016-11-14] MEDS: GUAIFENESIN 600 MG TABLET.SA PO SCH ×2 (05:12→17:34)
[2016-11-14] MEDS: INSULIN NPH (ISOPHANE), HUMAN 100 UNIT/ML 3 ML SUBCUT SCH ×2 (07:45→17:36)
[2016-11-14] MEDS: INSULIN REG, HUMAN 100 UNIT/ML 3 ML VIAL (PYX) SUBCUT SCH ×2 (07:46→17:37)
[2016-11-14] MEDS: ENOXAPARIN SODIUM INJ 40 MG/0.4 ML DISP.SYRIN SUBCUT SCH (07:49)
[2016-11-14] MEDS: IPRATROPIUM/ALBUTEROL 0.5-2.5 MG/3 ML AMPUL NEB SCH ×3 (07:51→19:36)
[2016-11-14] MEDS: FLUTICASONE NASAL SPRAY 50 MCG/SPRY 120 SPRAY/16 GM NASL SCH ×2 (09:26→21:45)
[2016-11-14] MEDS: CHLORPHENIRAMINE MALEATE 4 MG TABLET PO SCH ×2 (09:26→17:24)
[2016-11-14] MEDS: FLUTICASONE/SALMETEROL DISKUS 250-50 MCG/DOSE IH SCH ×2 (09:26→21:45)
[2016-11-14] MEDS: HYDROCHLOROTHIAZIDE 25 MG TABLET PO SCH (09:27)
[2016-11-14] MEDS: LOSARTAN POTASSIUM 50 MG TABLET PO SCH (09:28)
[2016-11-14] MEDS: INSULIN GLARGINE,HUM.REC.ANLOG 300 UNIT/3 ML INSULN.PEN SUBCUT SCH (10:19)
[2016-11-14] MEDS: FLUCONAZOLE 100 MG TABLET PO SCH (11:57)
--- NOTE | 2016-11-14 16:17 | PDOC PROGRESS REPORT ---
Subjective Progress Note for:: 11/14/16 Subjective:: Reason for visit: Follow-up pneumonia, hyperglycemia Hospital course: Per H&P "JAEL KEY is a 46 year old female Was sent to the ED by her primary care physician Patient has been treated for pneumonia, and was seen in the office today She was febrile somewhat tachypneic wheezing and was sent to the ED for evaluation In the ED patient was diagnosed with pneumonia with a left lower lobe infiltrate on chest x-ray The white blood count was 19,000, and her blood sugar over 400 She was subsequently admitted under hospitalist service to medical unit." She was admitted and placed on broad-spectrum antibiotics with Levaquin, her sputum culture is showing gram-positive diplococci most likely consistent with strep pneumonia and her condition is only minimally improved. Her antibiotics were changed to high-dose Rocephin on 11/13/2016. However her final culture results are now in and show pseudomonas aeruginosa in addition to the Streptococcus, both appear to be susceptible to Levaquin so her antibiotics were once again changed. Her blood sugars have been problematic during this hospitalization likely related to the infection. She takes an unusual regimen at home including morning doses of 30 units of regular insulin with 20 units of 70/30 and evening doses of the same amounts with an additional 100 units of Lantus. Capillary blood glucose remains labile and seems to be lowest at night, the patient reports she is not eating the usual carb load she does at home and we need to adjust her evening dose. Subjective: No new events overnight, continues to have improving dyspnea with exertion and room air sat only 90% this morning, still complaining of cough but no chest pain no fever or chills, nausea or vomiting, diarrhea or constipation, hoarseness improving. She denies nausea vomiting diarrhea. ROS: per HPI plus a total of 10 systems reviewed, pertinent positives and negatives noted above, remaining systems negative. Physical Exam Vital Signs: Temp Pulse Resp BP Pulse Ox 97.1 F 92 14 138/75 H 98 11/14/16 11:36 11/14/16 14:00 11/14/16 13:29 11/14/16 11:36 11/14/16 13:29 Intake & Output 11/13/16 11/14/16 11/15/16 06:59 06:59 06:59 Intake Total 2958 1695 591 Output Total 3800 4600 900 Balance -842 -2905 -309 Weight 114.7 kg 113.1 kg EXAM GENERAL: NAD; well developed, well nourished; obese; alert and oriented to person, place, time, situation HEENT: normocephalic, atraumatic; no conjunctival injection, no scleral icterus ; oral mucosa moist; RESPIRATORY: no accessory muscle use, no increased WOB, good air entry bilaterally; just coarse breath sounds today, resolution of left lower lobe expiratory wheeze CARDIO: no JVD; RRR; soft decrescendo systolic murmur second intercostal space as before; no tachycardia GI: soft; nondistended; normal bowel sounds; no hepato spleno megaly; no rebound, rigidity, guarding; nontender VASCULAR: no carotid bruit; no abdominal bruit; no pallor; 2+ radial, DP pulse ; normal capillary refill EXTREMITIES: no calf tender; no palpable cords in calf; no clubbing, cyanosis ; bilateral nonpitting pedal edema improved PSYCH: normal affect, normal mood SKIN: warm; moist; no petechiae; no telengectasias; no jaundice; no rash Assessment & Plan - Diagnosis (1) Pneumonia Qualifiers: Pneumonia type: due to group B Streptococcus Laterality: left Lung location: lower lobe of lung Qualified Code(s): J15.3 - Pneumonia due to streptococcus, group B Is this a current diagnosis for this admission?: YesPlan: Slowly improving. Follow sputum culture now shows both the original streptococcus and pseudomonas aeruginosa prompting a change back to Levaquin therapy which would seem to cover both based on the susceptibilities. (2) Vaginal yeast infection Is this a current diagnosis for this admission?: YesPlan: Added oral Diflucan with resolution. (3) Diabetes 1.5, managed as type 1 Is this a current diagnosis for this admission?: YesPlan: Decrease her a.m. dose of Lantus to 40 units and evening dose to 25 units in an effort to avoid the borderline hyperglycemia we've seen the last 2 nights. (4) Sepsis Is this a current diagnosis for this admission?: YesPlan: Improved. Evidenced by tachycardia, leukocytosis and source. (5) Acute respiratory failure with hypoxia Is this a current diagnosis for this admission?: YesPlan: Improved but still borderline hypoxic on room air, Requiring 2 L supplemental oxygen to maintain adequate saturations. Likely secondary to the above. Continue attempts at treatment of the underlying pneumonia and wean O2 as tolerated. Continue incentive spirometer and increase activity as tolerated. It seems we are close and can likely get her discharged within the next 24 hours. - Time Time Spent with patient: 25-34 minutes Medications reviewed and adjusted accordingly: Yes Anticipated discharge: Home Within: within 24 hours
[2016-11-14] MEDS ORDERED: INSULIN GLARGINE,HUM.REC.ANLOG 300 UNIT/3 ML INSULN.PEN SUBCUT SCH (22:00)
[2016-11-15] MEDS: GUAIFENESIN 600 MG TABLET.SA PO SCH (05:12)
[2016-11-15] MEDS ORDERED: INSULIN GLARGINE,HUM.REC.ANLOG 300 UNIT/3 ML INSULN.PEN SUBCUT SCH (08:00)
[2016-11-15] MEDS: ENOXAPARIN SODIUM INJ 40 MG/0.4 ML DISP.SYRIN SUBCUT SCH (08:37)
[2016-11-15] MEDS: IPRATROPIUM/ALBUTEROL 0.5-2.5 MG/3 ML AMPUL NEB SCH (08:46)
[2016-11-15] MEDS: INSULIN REG, HUMAN 100 UNIT/ML 3 ML VIAL (PYX) SUBCUT SCH (08:52)
[2016-11-15] MEDS: INSULIN NPH (ISOPHANE), HUMAN 100 UNIT/ML 3 ML SUBCUT SCH (08:52)
[2016-11-15] MEDS ORDERED: PNEUMOCOCCAL 23-VAL P-SAC VAC 0.5 ML VIAL IM PRN (09:42)
[2016-11-15] MEDS ORDERED: LEVOFLOXACIN 750 MG TABLET PO SCH (10:00)
[2016-11-15 10:33] VITALS: BP 130/51
[2016-11-15] MEDS: FLUTICASONE NASAL SPRAY 50 MCG/SPRY 120 SPRAY/16 GM NASL SCH (10:54)
[2016-11-15] MEDS: HYDROCHLOROTHIAZIDE 25 MG TABLET PO SCH (10:55)
[2016-11-15] MEDS: LOSARTAN POTASSIUM 50 MG TABLET PO SCH (10:56)
[2016-11-15] MEDS: CHLORPHENIRAMINE MALEATE 4 MG TABLET PO SCH (11:02)
[2016-11-15] MEDS: FLUTICASONE/SALMETEROL DISKUS 250-50 MCG/DOSE IH SCH (11:02)
--- NOTE | 2016-11-15 17:24 | PDOC DISCHARGE SUMMARY ---
General - Admit/Disc Date/PCP Admission Date/Primary Care Provider: 11/10/16 17:59 DENNIS HAQUE MD Discharge Date: 11/15/16 - Discharge Diagnosis (1) Pneumonia Is this a current diagnosis for this admission?: YesSummary: Slowly improving. Follow sputum culture now shows both the original streptococcus and pseudomonas aeruginosa prompting a change back to Levaquin therapy which would seem to cover both based on the susceptibilities. She seemed to tolerate changed to oral regimen and is now stable for discharge home (2) Vaginal yeast infection Is this a current diagnosis for this admission?: YesSummary: Improved with oral Diflucan, continue while on antibiotics. (3) Diabetes 1.5, managed as type 1 Is this a current diagnosis for this admission?: YesSummary: Resume home regimen at discharge. Follow-up with her PCP for further titration. (4) Sepsis Is this a current diagnosis for this admission?: YesSummary: Resolved. (5) Acute respiratory failure with hypoxia Is this a current diagnosis for this admission?: YesSummary: Resolved, she is currently 95% on room air for me at the bedside. - Additional Information Resuscitation Status: Full Code Discharge Diet: Diabetic Discharge Activity: Activity As Tolerated Home Medications: Chlorpheniramine Maleate [Chlortabs] 4 mg PO BID 11/10/16 Fluticasone Propionate [Flonase Nasal Joshua 50 Mcg/Joshua 16 gm] 1 spray NASL Q12 11/10/16 Hum Insulin NPH/Reg Insulin Hm [Insulin 70-30 (NPH/Reg) 100 unit/mL] 20 unit SUBCUT BID 11/10/16 Insulin Glargine,Hum.rec.anlog [Lantus] 100 unit SQ QHS 11/10/16 Insulin Regular, Human [Novolin R (Reg) Insulin 100 unit/mL] 30 unit SUBCUT BIDACBS 11/10/16 Losartan/Hydrochlorothiazide [Hyzaar 100-25 Tablet] 1 each PO DAILY 11/10/16 Acetaminophen [Tylenol 325 mg Tablet] 975 mg PO Q6HP PRN tablet 11/15/16 Fluconazole [Diflucan 100 mg Tablet] 200 mg PO NOON #7 tablet 11/15/16 Fluticasone/Salmeterol [Advair 250-50 Diskus 14 Dose/Diskus] 1 inh IH Q12 #1 inhaler 11/15/16 Guaifenesin [Mucinex Sr 600 mg Tablet.sa] 600 mg PO Q12A #20 tablet.sa 11/15/16 Levofloxacin [Levaquin 750 mg Tablet] 750 mg PO DAILY #7 tablet 11/15/16 History of Present Illness Patient complains of: Shortness of breath, wheezing, fatigue History of Present Illness: JAEL KEY is a 46 year old femaleWas sent to the ED by her primary care physician Patient has been treated for pneumonia, and was seen in the office today She was febrile somewhat tachypneic wheezing and was sent to the ED for evaluation In the ED patient was diagnosed with pneumonia with a left lower lobe infiltrate on chest x-ray The white blood count was 19,000, and her blood sugar over 400 She was subsequently admitted under hospitalist service to medical unit." Hospital Course Hospital Course: She was admitted and placed on broad-spectrum antibiotics with Levaquin, her sputum culture is showing gram-positive diplococci most likely consistent with strep pneumonia and her condition is only minimally improved. Her antibiotics were changed to high-dose Rocephin on 11/13/2016. However her final culture results are now in and show pseudomonas aeruginosa in addition to the Streptococcus, both appear to be susceptible to Levaquin so her antibiotics were once again changed. Her blood sugars have been problematic during this hospitalization likely related to the infection. She takes an unusual regimen at home including morning doses of 30 units of regular insulin with 20 units of 70/30 and evening doses of the same amounts with an additional 100 units of Lantus. Capillary blood glucose remains labile and seems to be lowest at night, the patient reports she is not eating the usual carb load she does at home and we need to adjust her evening dose. She was very slow to respond, antibiotics were initially adjusted to Rocephin based on a sputum culture that indicated strep pneumoniae however one day later that same culture then grew a second pathogen with pseudomonas aeruginosa. She was changed back to Levaquin therapy and continued to tolerate that therapy with continued slow progress. It took several days to get her weaned off supplemental oxygen but she is now maintaining saturations of at least 95% on room air for me. At this point she is stable for discharge home on continued antibiotic therapy. She is to follow up with her primary care provider early next week. Assuming her strength returns I see no reason why she cannot return to work on Friday. Deferred her PCP at follow-up for additional recommendations. She is return to the emergency department for any decline in her condition. She expresses no concerns to me about going home today in fact she is quite anxious for discharge home. She seems satisfied with the care she received here. She has several excellent questions attempted answered to the best of my ability. Physical Exam Vital Signs: Temp Pulse Resp BP Pulse Ox 97.5 F 85 19 130/51 H 98 11/15/16 11:32 11/15/16 11:32 11/15/16 11:32 11/15/16 11:32 11/15/16 11:32 Intake & Output 11/14/16 11/15/16 11/16/16 06:59 06:59 06:59 Intake Total 1695 1906 Output Total 4600 3800 Balance -2905 -1891 Weight 113.1 kg 114.1 kg EXAM GENERAL: NAD; well developed, well nourished; obese; alert and oriented to person, place, time, situation HEENT: normocephalic, atraumatic; no conjunctival injection, no scleral icterus ; oral mucosa moist; RESPIRATORY: no accessory muscle use, no increased WOB, good air entry bilaterally; just coarse breath sounds today, resolution of left lower lobe expiratory wheeze CARDIO: no JVD; RRR; soft decrescendo systolic murmur second intercostal space as before; no tachycardia GI: soft; nondistended; normal bowel sounds; no hepato spleno megaly; no rebound, rigidity, guarding; nontender VASCULAR: no carotid bruit; no abdominal bruit; no pallor; 2+ radial, DP pulse ; normal capillary refill EXTREMITIES: no calf tender; no palpable cords in calf; no clubbing, cyanosis ; bilateral nonpitting pedal edema improved PSYCH: normal affect, normal mood SKIN: warm; moist; no petechiae; no telengectasias; no jaundice; no rash Results Laboratory Results: 11/13/16 04:33 11/13/16 04:33 Impressions: Chest X-Ray 11/10/16 16:31 IMPRESSION: Low lung volumes. Suspicious for left pneumonia. Qualifiers PATEINT BEING DISCHARGED WITH ANY OF THE FOLLOWING DIAGNOSIS?: No VTE patient discharged on overlapping Therapy?: Yes Plan Discharge Plan: Discharge home to complete a course of antibiotics. Follow up with her PCP early next week. Time Spent: Greater than 30 Minutes
== END 2016-11-15 11:45 | disposition home or self-care (01) | DRG 177 ==
LOC: ER 12:51 → EH 17:44 → UNDOADMIN 17:44 → EH 17:59 → 2N 11-11 02:10 → 3N 11-11 05:53
PROVIDERS: ADMIT Emergency Medicine; ATTEND Emergency Medicine
DX: J15.1 Pneumonia due to Pseudomonas (principal); A41.9 Sepsis, unspecified organism; J96.01 Acute respiratory failure with hypoxia; J13 Pneumonia due to Streptococcus pneumoniae; E78.5 Hyperlipidemia, unspecified; I10 Essential (primary) hypertension; E11.65 Type 2 diabetes mellitus with hyperglycemia; B37.3 Candidiasis of vulva and vagina; J45.909 Unspecified asthma, uncomplicated; Z79.4 Long term (current) use of insulin
CPT/HCPCS: 36415; 71020; 80048; 80053; 82962; 83036; 84443; 84703; 85025; 87040; 87070; 87077; 87186; 87205; 87804; 90732; 93005; 93010; 94640; 94799; 99285; J0696; J1650; J1815; J1956; J3490; J7030; J7620

== ENCOUNTER → 2018-05-01 | Outpatient (CLI) | payer BC ==
--- NOTE | 2018-05-01 12:07 | WOMENS IMAGING REPORT ---
EXAM DESCRIPTION: BILAT SCREENING MAMMO W/CAD COMPLETED DATE/TIME: 05/01/2018 8:43 am REASON FOR STUDY: BILATERAL SCREENING MAMMO/Z12.31 Z12.31 ENCNTR SCREEN MAMMOGRAM FOR MALIGNANT SERA PLASM OF DARREN COMPARISON: None. TECHNIQUE: Standard craniocaudal and mediolateral oblique views of each breast recorded using Oncodesigna l acquisition. LIMITATIONS: None. FINDINGS: RIGHT BREAST MASSES: No suspicious masses. CALCIFICATIONS: No new or suspicious calcifications. ARCHITECTURAL DISTORTION: None. DEVELOPING DENSITY: None. ASYMMETRY: None noted. OTHER: No other significant findings. LEFT BREAST MASSES: No suspicious masses. CALCIFICATIONS: No new or suspicious calcifications. ARCHITECTURAL DISTORTION: None. DEVELOPING DENSITY: None. ASYMMETRY: Vaguely nodular densities in the medial and lateral breast, seen on the CC view only. Als o vague asymmetry in the inferior breast seen on the MLO view only. OTHER: No other significant findings. Read with the assistance of CAD. .[facility] - R2 Cenova Version 1.3 .[facility] - R2 Cenova Version 1.3 .[facility] - R2 Cenova Version 2.4 .[facility] - R2 Cenova Version 2.4 .[facility] - R2 [employer] Fitter Version 9.2 IMPRESSION: Vague nodular densities and asymmetry in the left breast. No worrisome mammographic fin dings in the right breast. BREAST DENSITY: c. The breasts are heterogeneously dense, which may obscure small masses. BIRAD: 0 Incomplete: Needs Additional Imaging Evaluation and/or prior Mammograms for Comparison. RECOMMENDATION: RECOMMENDED FOLLOW-UP: Recommend additional evaluation with breast tomosynthesis (pr eferred) or compression views of the left breast and ultrasound of the left breast. Recommend routin e screening mammography of the right breast. The patient will be contacted for additional imaging. COMMENT: The patient has been notified of the results by letter per SA requirements. Additional no tification policies are in place for contacting patient with suspicious or incomplete findings. Quality ID #[id number]: The [employer] recommends an annual screening mammogram for women aged 40 years or over. This facility utilizes a reminder system to ensure that all patients receive reminder letters, and/or direct phone calls for appointments. This includes reminders for routine scr eening mammograms, diagnostic mammograms, or other Breast Imaging Interventions when appropriate. Th is patient will be placed in the appropriate reminder system. The [employer] (ACR) has developed recommendations for screening MRI of the breast s in certain patient populations, to be used in conjunction with mammography. Breast MRI surveillanc e may be appropriate for women with more than 20% lifetime risk of developing breast cancer as deter mined by genetic testing, significant family history of the disease, or history of mantle radiation f or Hodgkins Disease. ACR Practice Guidelines 2008. TECHNICAL DOCUMENTATION: FINDING NUMBER: (1) ASSESSMENT: (1) JOB ID: [id number] [employer]- All Rights Reserved Reading location - IP/workstation name: [facility]
== END ==
LOC: WI 08:10
PROVIDERS: ATTEND Family Medicine
DX: Z12.31 Encounter for screening mammogram for malignant neoplasm of breast (principal)
CPT/HCPCS: 77067

== ENCOUNTER → 2018-05-21 | Outpatient (CLI) | payer BC ==
--- NOTE | 2018-05-22 11:52 | WOMENS IMAGING REPORT ---
EXAM DESCRIPTION: LEFT DIAGNOSTIC MAMMO W/CAD; U/S BREAST UNILAT LIMITED COMPLETED DATE/TIME: 05/21/2018 8:14 am; 05/21/2018 9:04 am REASON FOR STUDY: INCONCLUSIVE MAMMO; LT BREAST R92.2 R92.2 INCONCLUSIVE MAMMOGRAM COMPARISON: Mammograms 05/01/2018 TECHNIQUE: Standard craniocaudal, 90 mediolateral oblique images of the breast recorded with digita l acquisition. Multiple cone compression mammograms in the left CC and MLO orientations. Left breast ultrasound was also performed. LIMITATIONS: None. FINDINGS: BREAST: Left MASSES: In the lower inner quadrant left breast, an ill-defined mass with questionable associated giancarlo rocalcifications is present about 7 cm from the nipple. This correlates with a hypoechoic solid vagu e mass left breast 7 to 8 o'clock position worrisome for malignancy. Ultrasound-guided core biopsy w ith biopsy clip placement and post biopsy immediate follow-up two-view mammogram recommended. CALCIFICATIONS: No new or suspicious calcifications. ARCHITECTURAL DISTORTION: None. DEVELOPING DENSITY: None. ASYMMETRY: None noted. OTHER: No other significant findings. Read with the assistance of CAD. .[facility] - R2 Cenova Version 1.3 .[facility] Imaging - R2 Cenova Version 1.3 .[facility] Imaging - R2 Cenova Version 2.4 .[place] - R2 Cenova Version 2.4 .[facility] - R2 Pipeline Engineer Version 9.2 Left breast ultrasound: Enema or inner quadrant, a hypoechoic solid ill-defined nodule is present measuring about 1.5 cm in d iameter. There is some acoustic absorption. Findings are worrisome for malignancy. Ultrasound-guid ed core biopsy with post biopsy clip placement and follow-up two-view mammogram recommended. There is also a dilated duct in the right retroareolar region medially, with a small filling defect w orrisome for intraductal papilloma. Ultrasound-guided core biopsy with post biopsy clip placement an d follow-up two-view mammogram recommended. IMPRESSION: Ill-defined solid mass, dilated duct with filling defect in the medial left breast lower inner quadrant for which ultrasound-guided core biopsy with post biopsy clip placement and immediate follow-up two-view mammogram recommended. BREAST DENSITY: c. The breasts are heterogeneously dense, which may obscure small masses. BIRAD: 4 Suspicious. Biopsy should be considered. RECOMMENDATION: RECOMMENDED FOLLOW UP: Left breast ultrasound-guided core biopsy with post biopsy cl ip placement along the dilated duct with filling defect, and along the ill-defined mass in the lower inner quadrant left breast SPECIFIC INTERVENTION/IMAGING/CONSULTATION RECOMMENDED:No additional intervention/ imaging/consultati on needed at this time. COMMUNICATION:Patient notified by letter COMMENT: The patient has been notified of the results by letter per SA requirements. Additional no tification policies are in place for contacting patient with suspicious or incomplete findings. Quality ID #[id number]: The [employer] recommends an annual screening mammogram for women aged 40 years or over. This facility utilizes a reminder system to ensure that all patients receive reminder letters, and/or direct phone calls for appointments. This includes reminders for routine scr eening mammograms, diagnostic mammograms, or other Breast Imaging Interventions when appropriate. Th is patient will be placed in the appropriate reminder system. The [employer] (ACR) has developed recommendations for screening MRI of the breast s in certain patient populations, to be used in conjunction with mammography. Breast MRI surveillanc e may be appropriate for women with more than 20% lifetime risk of developing breast cancer as deter mined by genetic testing, significant family history of the disease, or history of mantle radiation f or Hodgkins Disease. ACR Practice Guidelines 2008. TECHNICAL DOCUMENTATION: FINDING NUMBER: (1) ASSESSMENT: (1) JOB ID: [id number] [employer]- All Rights Reserved Reading location - IP/workstation name: [facility]
--- NOTE | 2018-05-22 11:52 | WOMENS IMAGING REPORT ---
EXAM DESCRIPTION: LEFT DIAGNOSTIC MAMMO W/CAD; U/S BREAST UNILAT LIMITED COMPLETED DATE/TIME: 05/21/2018 8:14 am; 05/21/2018 9:04 am REASON FOR STUDY: INCONCLUSIVE MAMMO; LT BREAST R92.2 R92.2 INCONCLUSIVE MAMMOGRAM COMPARISON: Mammograms 05/01/2018 TECHNIQUE: Standard craniocaudal, 90 mediolateral oblique images of the breast recorded with digita l acquisition. Multiple cone compression mammograms in the left CC and MLO orientations. Left breast ultrasound was also performed. LIMITATIONS: None. FINDINGS: BREAST: Left MASSES: In the lower inner quadrant left breast, an ill-defined mass with questionable associated giancarlo rocalcifications is present about 7 cm from the nipple. This correlates with a hypoechoic solid vagu e mass left breast 7 to 8 o'clock position worrisome for malignancy. Ultrasound-guided core biopsy w ith biopsy clip placement and post biopsy immediate follow-up two-view mammogram recommended. CALCIFICATIONS: No new or suspicious calcifications. ARCHITECTURAL DISTORTION: None. DEVELOPING DENSITY: None. ASYMMETRY: None noted. OTHER: No other significant findings. Read with the assistance of CAD. .[facility] - R2 Cenova Version 1.3 .[facility] - R2 Cenova Version 1.3 .[facility] - R2 Cenova Version 2.4 .[facility] R2 Cenova Version 2.4 .[facility] - R2 [employer] Process Version 9.2 Left breast ultrasound: Enema or inner quadrant, a hypoechoic solid ill-defined nodule is present measuring about 1.5 cm in d iameter. There is some acoustic absorption. Findings are worrisome for malignancy. Ultrasound-guid ed core biopsy with post biopsy clip placement and follow-up two-view mammogram recommended. There is also a dilated duct in the right retroareolar region medially, with a small filling defect w orrisome for intraductal papilloma. Ultrasound-guided core biopsy with post biopsy clip placement an d follow-up two-view mammogram recommended. IMPRESSION: Ill-defined solid mass, dilated duct with filling defect in the medial left breast lower inner quadrant for which ultrasound-guided core biopsy with post biopsy clip placement and immediate follow-up two-view mammogram recommended. BREAST DENSITY: c. The breasts are heterogeneously dense, which may obscure small masses. BIRAD: 4 Suspicious. Biopsy should be considered. RECOMMENDATION: RECOMMENDED FOLLOW UP: Left breast ultrasound-guided core biopsy with post biopsy cl ip placement along the dilated duct with filling defect, and along the ill-defined mass in the lower inner quadrant left breast SPECIFIC INTERVENTION/IMAGING/CONSULTATION RECOMMENDED:No additional intervention/ imaging/consultati on needed at this time. COMMUNICATION:Patient notified by letter COMMENT: The patient has been notified of the results by letter per SA requirements. Additional no tification policies are in place for contacting patient with suspicious or incomplete findings. Quality ID #[id number]: The [employer] recommends an annual screening mammogram for women aged 40 years or over. This facility utilizes a reminder system to ensure that all patients receive reminder letters, and/or direct phone calls for appointments. This includes reminders for routine scr eening mammograms, diagnostic mammograms, or other Breast Imaging Interventions when appropriate. Th is patient will be placed in the appropriate reminder system. The [employer] (ACR) has developed recommendations for screening MRI of the breast s in certain patient populations, to be used in conjunction with mammography. Breast MRI surveillanc e may be appropriate for women with more than 20% lifetime risk of developing breast cancer as deter mined by genetic testing, significant family history of the disease, or history of mantle radiation f or Hodgkins Disease. ACR Practice Guidelines 2008. TECHNICAL DOCUMENTATION: FINDING NUMBER: (1) ASSESSMENT: (1) JOB ID: [id number] [employer]- All Rights Reserved Reading location - IP/workstation name: [email or web address]
== END ==
LOC: WI 07:43
PROVIDERS: ATTEND Family Medicine
DX: R92.2 Inconclusive mammogram (principal)
CPT/HCPCS: 76642

== ENCOUNTER → 2018-10-02 | Day surgery (SDC) | payer BC ==
[~2018-10-02] MED LIST: LIDOCAINE 1% INJ-PF (10 MG/ML) 30 ML SDV ONE
--- NOTE | 2018-10-02 14:35 | WOMENS IMAGING REPORT ---
EXAM DESCRIPTION: U/S BREAST UNILAT LIMITED COMPLETED DATE/TIME: 10/02/2018 2:22 pm REASON FOR STUDY: N63.20 N63.20 UNSPECIFIED LUMP IN THE LEFT BREAST, UNSPECIFIED QUAD COMPARISON: None. TECHNIQUE: Real-time and static grayscale imaging performed of the left breast targeted to the area of clinical/mammographic concern. Selected color Doppler images recorded. LIMITATIONS: None. FINDINGS: MASS: Again seen is a dilated duct in the 9 o'clock location. The previously seen small s olid echogenic area is no longer present. No other abnormal sonographic findings. OTHER: No other significant finding. IMPRESSION: Dilated duct in the 9 o'clock location. Previously seen small solid echogenic area is n o longer present. This may have represented debris on the prior study which has since cleared. Curr ently no focal target for ultrasound-guided biopsy. Biopsy will not be performed. Will plan for marko rt-term interval follow-up. BIRAD: 3 Probably benign finding. Initial short-interval follow-up suggested. RECOMMENDATION: RECOMMENDED FOLLOW-UP: Repeat mammogram and ultrasound of the left breast in approxi mately 6 months. At that time the patient would also be due for annual screening mammography of the right breast. COMMENT: The [employer] (ACR) has developed recommendations for screening MRI of the breasts in certain patient populations, to be used in conjunction with mammography. Breast MRI s urveillance may be appropriate for women with more than 20% lifetime risk of developing breast cancer as determined by genetic testing, significant family history of the disease, or history of mantle r adiation for Hodgkins Disease. ACR Practice Guidelines 2008. TECHNICAL DOCUMENTATION: JOB ID: [id number] [employer]- All Rights Reserved Reading location - IP/workstation name: [email or web address]
== END ==
LOC: WI 10:40
PROVIDERS: ATTEND Family Medicine
DX: N63.20 Unspecified lump in the left breast, unspecified quadrant (principal)
CPT/HCPCS: 76642; J3490

== ENCOUNTER 2018-10-13 08:16 | Day surgery (SDC) | payer BC ==
[~2018-10-13 08:16] MED LIST changes: +BUPIVACAINE HCL 0.75% INJ/PF (7.5 MG/1 ML) 10 ML SDV OD PRN; +KETOROLAC TROMETHAMINE 0.45% 4 DROP/0.4 ML DROPERETTE OD PRN; -LIDOCAINE 1% INJ-PF (10 MG/ML) 30 ML SDV ONE; +LIDOCAINE 4% INJ/PF (40 MG/ML) 5 ML AMPUL OD PRN
[2018-10-13] MEDS: TETRACAINE HCL 0.5% OPH SOLN 0.6 ML DROPERETTE OD PRN ×2 (08:50→09:22)
[2018-10-13] MEDS: CYCLOPENTOLATE 0.2%/PHENYLEPHRINE 1% OPH SOLN 2 ML OD PRN ×3 (08:51→09:14)
[2018-10-13] MEDS: BESIFLOXACIN HCL 0.6% OPH SUSP 5 ML BOTTLE OD PRN ×4 (08:51→10:10)
[2018-10-13] MEDS: TROPICAMIDE 1% OPH SOLN 3 ML OD PRN ×3 (08:51→09:14)
[2018-10-13] MEDS ORDERED: MIDAZOLAM 2 MG/2 ML INJ ONE (09:20)
[2018-10-13] MEDS ORDERED: FENTANYL CITRATE INJ/PF 100 MCG/2 ML AMPUL ONE (09:20)
[2018-10-13] MEDS: EPINEPHRINE INJ/PF 1 MG/1 ML AMPULE ONE ×2 (09:57)
[2018-10-13] MEDS: LIDOCAINE 1% INJ-PF (10 MG/ML) 30 ML SDV ONE ×2 (09:57)
[2018-10-13] MEDS: CHONDR SU A NA/HYALUR INTRAOC KIT (SURGICARE) ONE ×2 (09:57)
== END 2018-10-13 10:53 | disposition home or self-care (01) ==
LOC: SC 08:16
PROVIDERS: ATTEND Ophthalmology
DX: H25.811 Combined forms of age-related cataract, right eye (principal); H26.492 Other secondary cataract, left eye; H59.812 Chorioretinal scars after surgery for detachment, left eye; E10.3593 Type 1 diabetes mellitus with proliferative diabetic retinopathy without macular edema, bilateral; H40.031 Anatomical narrow angle, right eye; H35.372 Puckering of macula, left eye; I10 Essential (primary) hypertension; K21.9 Gastro-esophageal reflux disease without esophagitis; E78.00 Pure hypercholesterolemia, unspecified; J45.909 Unspecified asthma, uncomplicated; Z88.8 Allergy status to other drugs, medicaments and biological substances; Z88.1 Allergy status to other antibiotic agents; Z79.4 Long term (current) use of insulin; Z79.51 Long term (current) use of inhaled steroids; Z79.899 Other long term (current) drug therapy
CPT/HCPCS: 66984; 82962; V2632; J2250; J3490 ×4; J0171; J3010

== ENCOUNTER 2019-09-21 16:57 | Inpatient (IN) | payer BC ==
[2019-09-21] MEDS ORDERED: ONDANSETRON 4 MG TAB.RAPDIS PO ONE (17:29)
[2019-09-21] MEDS ORDERED: ACETAMINOPHEN 325 MG TABLET PO ONE (17:30)
--- NOTE | 2019-09-21 17:32 | ER Document Report ---
ED Medical Screen (RME) - General Chief Complaint: Nausea/Vomiting Stated Complaint: VOMITING/CHILLS/COUGHING Time Seen by Provider: 09/21/19 17:25 Primary Care Provider: DENNIS HAQUE MD [Primary Care Provider] - Follow up as needed Mode of Arrival: Ambulatory Information source: Patient Notes: Patient presents emergency department with fever vomiting. Temperature of 103 with heart rate of 126. Patient reports she started feeling sick earlier today vomiting. Complains of right upper quad abdominal pain. Has not received a flu vaccine. Did not take anything for the fever. I have greeted and performed a rapid initial assessment of this patient. A comprehensive ED assessment and evaluation of the patient, analysis of test results and completion of the medical decision making process will be conducted by additional ED providers. TRAVEL OUTSIDE OF THE [place] IN LAST 30 DAYS: No - Related Data Allergies/Adverse Reactions: erythromycin base Allergy (Verified 09/21/19 17:24) ketorolac [From Toradol] Allergy (Verified 09/21/19 17:24) Past Medical History - Social History Chew tobacco use (# tins/day): No Frequency of alcohol use: None Drug Abuse: None - Past Medical History Cardiac Medical History: Reports: Hx Hypercholesterolemia, Hx Hypertension Denies: Hx Heart Attack Pulmonary Medical History: Reports: Hx Asthma Neurological Medical History: Denies: Hx Cerebrovascular Accident, Hx Seizures Endocrine Medical History: Reports: Hx Diabetes Mellitus Type 1 Renal/ Medical History: Denies: Hx Peritoneal Dialysis GI Medical History: Denies: Hx Hepatitis, Hx Hiatal Hernia, Hx Ulcer Infectious Medical History: Denies: Hx Hepatitis Past Surgical History: Denies: Hx Mastectomy, Hx Open Heart Surgery, Hx Pacemaker - Immunizations Hx Diphtheria, Pertussis, Tetanus Vaccination: Yes Physical Exam - Vital signs Vitals: Temp Pulse Resp BP Pulse Ox 103.0 F H 126 H 20 99/68 L 93 09/21/19 17:15 09/21/19 17:15 09/21/19 17:15 09/21/19 17:15 09/21/19 17:15 Course - Vital Signs Vital signs: Temp Pulse Resp BP Pulse Ox 103.0 F H 126 H 20 99/68 L 93 09/21/19 17:15 09/21/19 17:15 09/21/19 17:15 09/21/19 17:15 09/21/19 17:15 Doctor's Discharge - Discharge Referrals: DENNIS HAQUE MD [Primary Care Provider] - Follow up as needed
[2019-09-21] MEDS ORDERED: ACETAMINOPHEN 325 MG TABLET ONE (18:05)
[2019-09-21 18:28] LABS: HEMATOCRIT 46.2 % (36.0-47.0); HEMOGLOBIN 15.4 g/dL (12.0-15.5); MEAN CORPUSCULAR HEMOGLOBIN 30.1 pg (27.0-33.4); MEAN CORPUSCULAR HGB CONC 33.4 g/dL (32.0-36.0); MEAN CORPUSCULAR VOLUME 90 fl (80-97); PLATELET COUNT 332 10^3/uL (150-450); RED BLOOD COUNT 5.13 10^6/uL (3.72-5.28); RED CELL DISTRIBUTION WIDTH 13.3 % (11.5-14.0); WHITE BLOOD COUNT 24.4 10^3/uL (4.0-10.5)
[2019-09-21 18:43] LABS: A TYPE INFLUENZA AG NEGATIVE (NEGATIVE); ALBUMIN 4.6 g/dL (3.5-5.0); ALKALINE PHOSPHATASE 121 U/L (38-126); ANION GAP 14 (5-19); ASPARTATE AMINO TRANSFERASE 46 U/L (14-36); B INFLUENZA AG NEGATIVE (NEGATIVE); BILIRUBIN,DIRECT 0.3 mg/dL (0.0-0.4); BILIRUBIN,TOTAL 0.8 mg/dL (0.2-1.3); BLOOD UREA NITROGEN 21 mg/dL (7-20); CALCIUM 10.2 mg/dL (8.4-10.2); CARBON DIOXIDE 27 mmol/L (22-30); CHLORIDE 99 mmol/L (98-107); GLUCOSE 127 mg/dL (75-110); TOTAL PROTEIN 8.2 g/dL (6.3-8.2)
[2019-09-21 18:54] LABS: ABSOLUTE LYMPHOCYTES# (MANUAL) 1.5 10^3/uL (0.5-4.7); ABSOLUTE MONOCYTES # (MANUAL) 0.7 10^3/uL (0.1-1.4); BAND NEUTROPHILS % (MANUAL) 4 % (3-5); BASOPHILS % (MANUAL) 0 % (0-2); EOSINOPHILS % (MANUAL) 0 % (0-6); LYMPHOCYTES % (MANUAL) 6 % (13-45); MONOCYTES % (MANUAL) 3 % (3-13); RBC MORPHOLOGY COMMENT NORMO-CYTIC/CHROMIC; SEGMENTED NEUTROPHILS % (MAN) 87 % (42-78); TOTAL CELLS COUNTED 100
[2019-09-21 18:55] LABS: PLATELET COMMENT ADEQUATE
--- NOTE | 2019-09-21 18:59 | RADIOLOGY REPORT (SQ) ---
EXAM DESCRIPTION: U/S ABDOMEN LIMITED W/O DOP COMPLETED DATE/TIME: 09/21/2019 6:43 pm REASON FOR STUDY: ruq pain COMPARISON: None. TECHNIQUE: Dynamic and static grayscale images acquired of the abdomen and recorded on PACS. Additio nal selected color Doppler and spectral images recorded. Note: Exam does not meet criteria for a complete doppler/duplex scan RADIATION DOSE: none LIMITATIONS: Study limited due to acoustical interference from fat or from air in the bowel. Patien t vomiting during exam. Unable to perform left labral decubitus position. FINDINGS: PANCREAS: Poorly seen secondary to acoustical interference from fat or from air in the bow el. LIVER: Echotexture is coarse with increased echogenicity consistent with fatty infiltration. LIVER VASCULATURE: Normal directional flow of the main portal vein and hepatic veins. GALLBLADDER: No stones. Normal wall thickness. No pericholecystic fluid. ULTRASOUND-DETECTED VINES'S SIGN: Negative. INTRAHEPATIC DUCTS AND COMMON DUCT: CBD and intrahepatic ducts normal caliber. No filling defects. AORTA: No aneurysm identified.Poorly seen secondary to acoustical interference from fat or from air i n the bowel. RIGHT KIDNEY: Normal size. Normal echogenicity. No solid or suspicious masses. No hydronephrosis. No calcifications. PERITONEAL AND PLEURAL SPACES: No ascites or effusions. OTHER: No other significant finding. IMPRESSION: No gallstones or acute inflammatory changes identified. FATTY INFILTRATION OF THE LIVER . Patient vomiting during exam. Unable to perform left labral decubitus position. TECHNICAL DOCUMENTATION: JOB ID: [id number] 2010 [employer]- All Rights Reserved Reading location - IP/workstation name: [employer]
[2019-09-21] MEDS ORDERED: METOCLOPRAMIDE HCL INJ/PF 10 MG/2 ML SDV IV ONE (19:36)
[2019-09-21] MEDS ORDERED: NORMAL SALINE 1000 ML 1,000 ML IV ONE ×3 (19:36→22:54)
--- NOTE | 2019-09-21 19:36 | ER Document Report ---
ED GI/ - General Chief Complaint: Nausea/Vomiting Stated Complaint: VOMITING/CHILLS/COUGHING Time Seen by Provider: 09/21/19 17:25 Mode of Arrival: Ambulatory Notes: Patient is a 49-year-old female who presents to the emergency department with a chief complaint of fever, body aches, chills, and vomiting. Her symptoms started this afternoon. Patient is a type I diabetic. Patient states that she has not felt well all day. Patient has a history of asthma. TRAVEL OUTSIDE OF THE [place] IN LAST 30 DAYS: No - Related Data Allergies/Adverse Reactions: erythromycin base Allergy (Verified 09/21/19 17:24) ketorolac [From Toradol] Allergy (Verified 09/21/19 17:24) Past Medical History - General Information source: Patient - Social History Smoking Status: Never Smoker Chew tobacco use (# tins/day): No Frequency of alcohol use: None Drug Abuse: None Family History: Reviewed & Not Pertinent Patient has suicidal ideation: No Patient has homicidal ideation: No - Past Medical History Cardiac Medical History: Reports: Hx Hypercholesterolemia, Hx Hypertension Denies: Hx Heart Attack Pulmonary Medical History: Reports: Hx Asthma Neurological Medical History: Denies: Hx Cerebrovascular Accident, Hx Seizures Endocrine Medical History: Reports: Hx Diabetes Mellitus Type 1 Renal/ Medical History: Denies: Hx Peritoneal Dialysis GI Medical History: Denies: Hx Hepatitis, Hx Hiatal Hernia, Hx Ulcer Infectious Medical History: Denies: Hx Hepatitis Past Surgical History: Denies: Hx Mastectomy, Hx Open Heart Surgery, Hx Pacemaker - Immunizations Hx Diphtheria, Pertussis, Tetanus Vaccination: Yes Review of Systems - Review of Systems Notes: REVIEW OF SYSTEMS: CONSTITUTIONAL : See HPI. EENT: Denies eye, ear, throat, or mouth pain, discharge, or symptoms. Denies nasal or sinus congestion. CARDIOVASCULAR: Denies chest pain. RESPIRATORY: See HPI. GASTROINTESTINAL: Denies nausea, vomiting, and diarrhea. Denies abdominal pain. Denies constipation. GENITOURINARY: Denies difficulty urinating, burning, blood in urine, urgency or frequency. MUSCULOSKELETAL: Denies neck and back pain. Denies joint pain or swelling. SKIN: Denies rash, itchiness, or lesions HEMATOLOGIC : Denies easy bruising or bleeding. LYMPHATIC: Denies swollen, painful, enlarged glands. NEUROLOGICAL: Denies no numbness or tingling denies weakness. Denies headache. Denies altered mental status. Denies alteration in speech. PSYCHIATRIC: Denies stress, anxiety, alteration in sleep patterns, or depression. All other systems reviewed and negative. Physical Exam - Vital signs Vitals: Temp Pulse Resp BP Pulse Ox 103.0 F H 126 H 20 99/68 L 93 09/21/19 17:15 09/21/19 17:15 09/21/19 17:15 09/21/19 17:15 09/21/19 17:15 - Notes Notes: PHYSICAL EXAMINATION: GENERAL: Appears well, healthy, well-nourished, no acute distress. HEAD: Normocephalic, atraumatic. EYES: PERRL, conjunctiva normal, all extraocular movements intact, sclera nonicteric ENT: Moist mucous membranes. NECK: Supple, no noticeable swelling, redness, rash. Normal range of motion. LUNGS: Coarse breath sounds noted to left lower lobe. CARDIOVASCULAR: S1-S2, regular rate, regular rhythm. Radial pulses 2+, normal. ABDOMEN: Normoactive bowel sounds. Soft, nontender, no guarding, no rebound tenderness, and no masses palpated. EXTREMITIES: Normal strength and range of motion, no pitting or edema. No cyanosis. NEUROLOGICAL: Moves all extremities upon command. Strength 5/5 in all extremities. PSYCH: Normal mood, normal affect. SKIN: Warm, dry. No rash, lesions, ulcerations noted. Normal skin turgor. Course - Re-evaluation Re-evalutation: 09/21/19 19:33 Patient has a leukocytosis of 24,000 with a left shift. Chemistries show an elevated BUN. Patient's breath sounds sound coarse in bilateral lower lobes. Chest x-ray will be sent. Influenza screen is negative. I also send a rapid strep on her, as the patient works with the public. 09/21/19 21:35. The nurse has been brought to my attention that the patient's blood pressure is 70/45. She will receive her second unit of IV fluids. Patient meets sepsis criteria. Patient will also be started on antibiotics. 09/21/19 22:[address] shows groundglass appearance in her left lower lobe, consistent with pneumonia and rapid strep test is also negative. Chest x-ray shows possible pneumonia. 09/21/19 22:[address] Batres, the hospitalist doctor. He would like me to call him back in 30 minutes to see if the patient's blood pressure is better or not. 09/21/19 23:[address] Batres and updated him on the patient's vital signs. Patient's heart rate is 94. Blood pressure 104/49 with a map of 66. Respiratory rate 22 and patient is satting 98% on room air. Dr. Batres is wanting me to call him back in another half an hour when the patient's lactic acid is back. He is wanting the patient admitted to ICU. 09/21/19 00:13 Patient's lactic acid is 3.3. I updated Dr. Batres on this finding. Patient's blood pressure is much better with the blood pressure 130s systolic. Dr. Batres evaluated the patient. She will be admitted to [facility]. - Vital Signs Vital signs: Temp Pulse Resp BP Pulse Ox 98.8 F 96 16 122/41 L 96 09/23/19 12:00 09/23/19 12:00 09/23/19 12:00 09/23/19 12:00 09/23/19 12:00 - Laboratory Result Diagrams: 09/23/19 04:10 09/23/19 04:10 Laboratory results interpreted by me: 09/21/19 09/21/19 09/21/19 17:49 17:49 21:09 WBC 24.4 H Seg Neuts % (Manual) 87 H Lymphocytes % (Manual) 6 L Abs Neuts (Manual) 22.2 H BUN 21 H Est GFR (MDRD) Non-Af 57 L Glucose 127 H Lactic Acid AST 46 H Lipase < 10.0 L Urine Protein 30 H Urine Urobilinogen 2.0 H 09/21/19 22:25 WBC Seg Neuts % (Manual) Lymphocytes % (Manual) Abs Neuts (Manual) BUN Est GFR (MDRD) Non-Af Glucose Lactic Acid 3.3 H AST Lipase Urine Protein Urine Urobilinogen Critical Care Note - Critical Care Note Total time excluding time spent on procedures (mins): 37 Comments: Critical care time spent obtaining history from patient or surrogate, discussions with consultants, development of treatment plan with patient or surrogate, evaluation of patient's response to treatment, examination of patient, ordering and performing treatments and interventions, ordering and review of laboratory studies, re-evaluation of patient's condition, ordering and review of radiographic studies and review of old charts Discharge - Discharge Clinical Impression: Pneumonia Qualifiers: Pneumonia type: due to unspecified organism Laterality: bilateral Lung locat ion: lower lobe of lung Qualified Code(s): J18.9 - Pneumonia, unspecified organism Sepsis Qualifiers: Sepsis type: sepsis due to unspecified organism Sepsis acute organ dysfunction status: without acute organ dysfunction Qualified Code(s): A41.9 - Sepsis, unspe cified organism Condition: Fair Disposition: ADMITTED INPATIENT Admitting Provider: Meadrdo (Hospitalist) Unit Admitted: [facility]
--- NOTE | 2019-09-21 20:54 | RADIOLOGY REPORT (SQ) ---
EXAM DESCRIPTION: CLINICAL HISTORY: 49 years Female, fever COMPARISON: 11/10/2016. FINDINGS: Borderline heart size no suspicious mediastinal widening. Frontal view suggests the left retrocardiac parenchymal opacity. Not definitely identified in the lateral view. IMPRESSION: Question left lower lobe atelectasis or infiltrate identified on the frontal view but not definitely on the lateral view. Consider CT.
[2019-09-21 21:26] LABS: APPEARANCE,URINE CLOUDY; BILIRUBIN,URINE NEGATIVE (NEGATIVE); COLOR,URINE AMBER; GLUCOSE, URINE NEGATIVE (NEGATIVE); KETONES,URINE NEGATIVE (NEGATIVE); LEUKOCYTE ESTERASE,URINE NEGATIVE (NEGATIVE); NITRITE,URINE NEGATIVE (NEGATIVE); PROTEIN,URINE 30 mg/dL (NEGATIVE); URINE SPECIFIC GRAVITY 1.025
--- NOTE | 2019-09-21 21:42 | RADIOLOGY REPORT (SQ) ---
EXAM DESCRIPTION: CT CHEST WITHOUT IV CONTRAST COMPLETED DATE/TME: 09/21/2019 20:59 CLINICAL HISTORY: 49 years, Female, questionable pneumonia COMPARISON: Chest radiograph performed earlier the same day TECHNIQUE: Noncontrast CT of the chest was performed. Coronal and sagittal reformations were acquired. Images stored on PACS. All CT scanners at this facility use dose modulation, iterative reconstruction, and/or weight based dosing when appropriate to reduce radiation dose to as low as reasonably achievable (ALARA). [facility]: Dose Right [facility]: CareDose [facility]: Dose Right [facility]: Teradose 4D [facility]: Smart Technologies LIMITATIONS: None. FINDINGS: Central airways are patent. Lung windows show multifocal consolidative and groundglass opacity about the basilar segments of the left lower lobe. In addition, there is a more focal nodule located within the left lower lobe which appears centrally calcified measuring 2.3 x 1.7 cm in size, corresponding to a calcified granuloma. Mediastinal windows show a few small/nonenlarged mediastinal lymph nodes, likely reactive. Calcifications are evident about the coronary vessels. Limited evaluation of the upper abdomen reveals no suspicious finding. Bone windows show no destructive osseous lesions. IMPRESSION: Multifocal consolidative and groundglass opacity about the basilar segments of the left lower lobe, most likely indicating pneumonia. Follow-up to clearing is recommended (3 months). TECHNICAL DOCUMENTATION: Quality ID # [id number]: Final reports with documentation of one or more dose reduction techniques (e.g., Automated exposure control, adjustment of the mA and/or kV according to patient size, use of iterative reconstruction technique) copyright 2011 [employer]- All Rights Reserved
[2019-09-21] MEDS ORDERED: LEVOFLOXACIN 750 MG/D5W RTU 750 MG/150 ML RTUPB IV ONE (22:25)
[2019-09-21] MEDS ORDERED: IPRATROPIUM/ALBUTEROL 0.5-2.5 MG/3 ML AMPUL NEB ONE (22:30)
[2019-09-21] MEDS ORDERED: CEFTRIAXONE INJ 1000 MG VIAL IV ONE ×2 (22:39→22:44)
[2019-09-21] MEDS ORDERED: CEFTRIAXONE 1 GM/D5W RTU 50 ML IV ONE (22:40)
[2019-09-22] MEDS ORDERED: IPRATROPIUM/ALBUTEROL 0.5-2.5 MG/3 ML AMPUL NEB PRN (00:41)
[2019-09-22] MEDS ORDERED: HYDRALAZINE HCL INJ/PF 20 MG/1 ML SDV IV PRN (00:41)
[2019-09-22] MEDS ORDERED: DEXTROSE 40% GEL 15 GM TUBE PO PRN ×2 (00:44)
[2019-09-22] MEDS ORDERED: GLUCAGON,HUMAN RECOMB 1 MG INJ IM PRN (00:44)
[2019-09-22] MEDS ORDERED: DEXTROSE 50%-WATER 25 GM/50 ML DISP.SYRIN IV PRN ×2 (00:44)
[2019-09-22] MEDS ORDERED: NORMAL SALINE 1000 ML 1,000 ML IV PRN (00:45)
[2019-09-22] MEDS: CHLORPHENIRAMINE MALEATE 4 MG TABLET PO SCH ×4 (01:37→18:10)
[2019-09-22] MEDS ORDERED: FLUTICASONE NASAL SPRAY 50 MCG/SPRY 120 SPRAY/16 GM ONE (02:14)
[2019-09-22] MEDS: FLUTICASONE NASAL SPRAY 50 MCG/SPRY 120 SPRAY/16 GM NASL SCH ×3 (02:23→22:00)
[2019-09-22] MEDS: IPRATROPIUM/ALBUTEROL 0.5-2.5 MG/3 ML AMPUL NEB SCH ×4 (02:27→19:42)
--- NOTE | 2019-09-22 05:24 | PDOC H&P ---
History of Present Illness Admission Date/PCP: 09/22/19 00:49 DENNIS HAQUE MD Patient complains of: Fever and shortness of breath History of Present Illness: JAEL KEY is a 49 year old female with a past medical history of morbid obesity, GERD, asthma and pneumonia. Patient presents with 3 or 4 days of shortness of breath and productive cough developing a fever she is prompted to seek evaluation emergency room where she is found to have a temperature of 103.0, hypotension, leukocytosis of 24,[address] showing bilateral infiltrates suggestive of pneumonia. Previous pneumonia culture resulted strep pneumonia. She started on Levaquin and Rocephin and referred to the hospitalist for admission. She denies rhinorrhea, sore throat, uncontrolled acid reflux. Past Medical History Cardiac Medical History: Reports: Hyperlipidema, Hypertension Denies: Myocardial Infarction Pulmonary Medical History: Reports: Asthma Neurological Medical History: Denies: Seizures Endocrine Medical History: Reports: Diabetes Mellitus Type 1 GI Medical History: Denies: Hepatitis, Hiatal Hernia Hematology: Denies: Anemia, Sickle Cell Disease Past Surgical History Past Surgical History: Denies: Amputation, Mastectomy, Pacemaker, Splenectomy Social History Information Source: Patient Lives with: Family Smoking Status: Never Smoker Electronic Cigarette use?: No Frequency of Alcohol Use: None Hx Recreational Drug Use: No Drugs: None - Advance Directive Resuscitation Status: Full Code Family History Family History: Hypertension Parental Family History Reviewed: Yes Children Family History Reviewed: Yes Sibling(s) Family History Reviewed.: Yes Medication/Allergy Home Medications: Fluticasone Propionate [Flonase Nasal Tim[place]ath 50 Mcg/Timnath 16 gm] 1 spray NASL Q12 11/10/16 Hum Insulin NPH/Reg Insulin Hm [Insulin 70-30 (NPH/Reg) 100 unit/mL] 30 unit SUBCUT BID 11/10/16 Insulin Glargine,Hum.rec.anlog [Lantus] 100 unit SQ QHS 11/10/16 Insulin Regular, Human [Novolin R (Reg) Insulin 100 unit/mL] 30 unit SUBCUT TID 11/10/16 Losartan/Hydrochlorothiazide [Hyzaar 100-25 Tablet] 1 each PO DAILY 11/10/16 Albuterol Sulfate [Ventolin Hfa 8 gm Mdi (1 Mdi/ER Disp)] 2 puff IH ASDIR PRN 10/12/18 Besifloxacin HCl [Besivance 0.6% Oph Susp 5 ml] 1 drop OP ASDIR 10/12/18 Bromfenac Sodium [Prolensa] 1 drop OP ASDIR 10/12/18 Chlorpheniramine Maleate [Chlor Hist 4 mg Tablet] 1 tab PO Q4 PRN 10/12/18 Difluprednate [Durezol] 1 drop OP ASDIR 10/12/18 Mometasone/Formoterol [Dulera 200 Mcg/5 Mcg Inhaler] 13 gm IH ASDIR 10/12/18 Montelukast Sodium [Singulair 10 mg Tablet] 10 mg PO QHS 10/12/18 Omeprazole 40 mg PO DAILY 10/12/18 Allergies/Adverse Reactions: erythromycin base Allergy (Verified 09/21/19 17:24) ketorolac [From Toradol] Allergy (Verified 09/21/19 17:24) Review of Systems Constitutional: ABSENT: chills, fever(s), headache(s), weight gain, weight loss Eyes: ABSENT: visual disturbances Ears: ABSENT: hearing changes Cardiovascular: ABSENT: chest pain, dyspnea on exertion, edema, orthropnea, palpitations Respiratory: ABSENT: cough, hemoptysis Gastrointestinal: ABSENT: abdominal pain, constipation, diarrhea, hematemesis, hematochezia, nausea, vomiting Genitourinary: ABSENT: dysuria, hematuria Musculoskeletal: ABSENT: joint swelling Integumentary: ABSENT: rash, wounds Neurological: ABSENT: abnormal gait, abnormal speech, confusion, dizziness, focal weakness, syncope Psychiatric: ABSENT: anxiety, depression, homidical ideation, suicidal ideation Endocrine: ABSENT: cold intolerance, heat intolerance, polydipsia, polyuria Hematologic/Lymphatic: ABSENT: easy bleeding, easy bruising Physical Exam Vital Signs: Temp Pulse Resp BP Pulse Ox 98.3 F 98 16 114/57 L 96 09/21/19 23:06 09/21/19 21:32 09/22/19 04:01 09/22/19 04:01 09/22/19 04:01 Intake & Output 09/20/19 09/21/19 09/22/19 11:59 11:59 11:59 Intake Total 4000 Balance 4000 Weight 108.9 kg General appearance: PRESENT: mild distress, morbidly obese, well-developed, w ell-nourished Head exam: PRESENT: atraumatic, normocephalic Eye exam: PRESENT: conjunctiva pink, EOMI, PERRLA. ABSENT: scleral icterus Ear exam: PRESENT: normal external ear exam Mouth exam: PRESENT: moist, tongue midline Neck exam: ABSENT: carotid bruit, JVD, lymphadenopathy, thyromegaly Respiratory exam: PRESENT: accessory muscle use, prolonged expiratory phas, rales, retraction, rhonchi, symmetrical, tachypnea Cardiovascular exam: PRESENT: RRR, tachycardia. ABSENT: diastolic murmur, rubs, systolic murmur Pulses: PRESENT: normal dorsalis pedis pul Vascular exam: PRESENT: normal capillary refill GI/Abdominal exam: PRESENT: normal bowel sounds, soft. ABSENT: distended, guarding, mass, organolmegaly, rebound, tenderness Rectal exam: PRESENT: deferred Extremities exam: PRESENT: full ROM. ABSENT: calf tenderness, clubbing, pedal edema Neurological exam: PRESENT: alert, awake, oriented to person, oriented to place, oriented to time, oriented to situation, CN II-XII grossly intact. ABSENT: motor sensory deficit Psychiatric exam: PRESENT: appropriate affect, normal mood. ABSENT: homicidal ideation, suicidal ideation Skin exam: PRESENT: dry, intact, warm. ABSENT: cyanosis, rash Results Laboratory Results: 09/21/19 17:49 09/21/19 17:49 09/21/19 09/21/19 09/21/19 17:49 17:49 21:09 WBC 24.4 H RBC 5.13 Hgb 15.4 Hct 46.2 MCV 90 MCH 30.1 MCHC 33.4 RDW 13.3 Plt Count 332 Seg Neutrophils % Not Reportable Sodium 140.3 Potassium 4.0 Chloride 99 Carbon Dioxide 27 Anion Gap 14 BUN 21 H Creatinine 1.02 Est GFR ( Amer) > 60 Glucose 127 H Lactic Acid Calcium 10.2 Total Bilirubin 0.8 AST 46 H Alkaline Phosphatase 121 Total Protein 8.2 Albumin 4.6 Lipase < 10.0 L Urine Color MIKE Urine Appearance CLOUDY Urine pH 5.0 Ur Specific [place] 1.025 Urine Protein 30 H Urine Glucose (UA) NEGATIVE Urine Ketones NEGATIVE Urine Blood NEGATIVE Urine Nitrite NEGATIVE Ur Leukocyte Esterase NEGATIVE Urine WBC (Auto) 5 Urine RBC (Auto) 2 09/21/19 22:25 WBC RBC Hgb Hct MCV MCH MCHC RDW Plt Count Seg Neutrophils % Sodium Potassium Chloride Carbon Dioxide Anion Gap BUN Creatinine Est GFR ( Amer) Glucose Lactic Acid 3.3 H Calcium Total Bilirubin AST Alkaline Phosphatase Total Protein Albumin Lipase Urine Color Urine Appearance Urine pH Ur Specific [place] Urine Protein Urine Glucose (UA) Urine Ketones Urine Blood Urine Nitrite Ur Leukocyte Esterase Urine WBC (Auto) Urine RBC (Auto) Impressions: Abdomen Ultrasound 09/21/19 17:31 IMPRESSION: No gallstones or acute inflammatory changes identified. FATTY INFILTRATION OF THE LIVER. Patient vomiting during exam. Unable to perform left labral decubitus position. Chest X-Ray 09/21/19 19:29 IMPRESSION: Question left lower lobe atelectasis or infiltrate identified on the frontal view but not definitely on the lateral view. Consider CT. Chest CT 09/21/19 20:59 IMPRESSION: Multifocal consolidative and groundglass opacity about the basilar segments of the left lower lobe, most likely indicating pneumonia. Follow-up to clearing is recommended (3 months). TECHNICAL DOCUMENTATION: Quality ID # 436: Final reports with documentation of one or more dose reduction techniques (e.g., Automated exposure control, adjustment of the mA and/or kV according to patient size, use of iterative reconstruction technique) copyright 2011 [employer]- All Rights Reserved Assessment and Plan - Diagnosis (1) Pneumonia Qualifiers: Pneumonia type: due to unspecified organism Laterality: bilateral Lung location: lower lobe of lung Qualified Code(s): J18.9 - Pneumonia, unspecified organism Is this a current diagnosis for this admission?: Yes Plan: Pneumonia care set deployed, concern for strep pneumonia, Rocephin and azithromycin, albuterol and Atrovent, incentive spirometry. Follow-up CBC and blood culture (2) Sepsis Qualifiers: Sepsis type: sepsis due to unspecified organism Sepsis acute organ dysfunction status: without acute organ dysfunction Qualified Code(s): A41.9 - Sepsis, unspecified organism Is this a current diagnosis for this admission?: Yes Plan: Secondary to #1, IV fluid challenge, follow-up lactic acid and blood culture (3) Diabetes 1.5, managed as type 1 Is this a current diagnosis for this admission?: Yes Plan: Lantus 80 units, Humalog sliding scale ordered. - Time Time Spent with patient: 25-34 minutes - Inpatient Certification Medical Necessity: Need Close Monitoring Due to Risk of Patient Decompensation
[2019-09-22] MEDS: HEPARIN SOD (PORCINE) 5,000 UNIT/ML 1 ML VIAL SUBCUT SCH ×3 (06:10→21:59)
[2019-09-22 06:42] LABS: HEMATOCRIT 38.2 % (36.0-47.0); MEAN CORPUSCULAR HEMOGLOBIN 30.1 pg (27.0-33.4); MEAN CORPUSCULAR HGB CONC 33.2 g/dL (32.0-36.0); MEAN CORPUSCULAR VOLUME 91 fl (80-97); PLATELET COUNT 269 10^3/uL (150-450); RED BLOOD COUNT 4.21 10^6/uL (3.72-5.28); RED CELL DISTRIBUTION WIDTH 13.3 % (11.5-14.0); WHITE BLOOD COUNT 27.6 10^3/uL (4.0-10.5)
[2019-09-22 06:54] LABS: ANION GAP 13 (5-19); BLOOD UREA NITROGEN 24 mg/dL (7-20); CALCIUM 8.5 mg/dL (8.4-10.2); CARBON DIOXIDE 25 mmol/L (22-30); CHLORIDE 99 mmol/L (98-107); GLUCOSE 337 mg/dL (75-110); POTASSIUM 4.4 mmol/L (3.6-5.0)
[2019-09-22 07:22] LABS: ABSOLUTE LYMPHOCYTES# (MANUAL) 2.2 10^3/uL (0.5-4.7); ABSOLUTE MONOCYTES # (MANUAL) 1.1 10^3/uL (0.1-1.4); BAND NEUTROPHILS % (MANUAL) 2 % (3-5); BASOPHILS % (MANUAL) 0 % (0-2); EOSINOPHILS % (MANUAL) 0 % (0-6); LYMPHOCYTES % (MANUAL) 8 % (13-45); MONOCYTES % (MANUAL) 4 % (3-13); SEGMENTED NEUTROPHILS % (MAN) 86 % (42-78); TOTAL CELLS COUNTED 100
[2019-09-22 07:23] LABS: OVALOCYTES SLIGHT; PLATELET COMMENT ADEQUATE; POIKILOCYTOSIS SLIGHT; TOXIC GRANULATION SLIGHT
[2019-09-22 07:24] LABS: HEMOGLOBIN 12.7 g/dL (12.0-15.5)
[2019-09-22] MEDS: INSULIN LISPRO 100 UNIT/ML 3 ML VIAL SUBCUT SCH ×3 (09:48→18:17)
[2019-09-22] MEDS: AZITHROMYCIN 500 MG in DEXTROSE 5%-WATER 250 ML IV SCH (10:23)
[2019-09-22] MEDS: HUM INSULIN NPH/REG INSULIN HM 100 UNIT/1 ML 3 ML SUBCUT SCH ×2 (13:36→22:00)
[2019-09-22] MEDS: INSULIN REG, HUMAN 100 UNIT/ML 3 ML VIAL (PYX) SUBCUT SCH (18:10)
[2019-09-22] MEDS ORDERED: INFLUENZA QUAD (6MOS+) 2019-20 VAC 0.5 ML SYR IM ONE (18:56)
[2019-09-22] MEDS: ACETAMINOPHEN 325 MG TABLET PO PRN (19:11)
[2019-09-22] MEDS ORDERED: INSULIN GLARGINE,HUM.REC.ANLOG 1,000 UNIT/10 ML VIAL (PYX) SUBCUT PRN (21:45)
[2019-09-22] MEDS: MONTELUKAST SODIUM 10 MG TABLET PO SCH (21:59)
[2019-09-22] MEDS ORDERED: CEFTRIAXONE 1 GM/D5W RTU 1 GM/50 ML RTUPB IV SCH (22:00)
[2019-09-22] MEDS ORDERED: INSULIN GLARGINE,HUM.REC.ANLOG 1,000 UNIT/10 ML VIAL SUBCUT SCH ×2 (22:00)
[2019-09-23] MEDS: IPRATROPIUM/ALBUTEROL 0.5-2.5 MG/3 ML AMPUL NEB SCH ×4 (01:54→20:31)
[2019-09-23] MEDS: ACETAMINOPHEN 325 MG TABLET PO PRN ×2 (04:45→11:56)
[2019-09-23 05:29] LABS: MEAN CORPUSCULAR HEMOGLOBIN 30.3 pg (27.0-33.4); MEAN CORPUSCULAR HGB CONC 33.5 g/dL (32.0-36.0); MEAN CORPUSCULAR VOLUME 90 fl (80-97); PLATELET COUNT 248 10^3/uL (150-450); RED BLOOD COUNT 3.98 10^6/uL (3.72-5.28); RED CELL DISTRIBUTION WIDTH 13.5 % (11.5-14.0); WHITE BLOOD COUNT 22.3 10^3/uL (4.0-10.5)
[2019-09-23 05:50] LABS: ANION GAP 12 (5-19); BLOOD UREA NITROGEN 19 mg/dL (7-20); CALCIUM 8.8 mg/dL (8.4-10.2); CARBON DIOXIDE 25 mmol/L (22-30); CHLORIDE 102 mmol/L (98-107); GLUCOSE 182 mg/dL (75-110); POTASSIUM 3.6 mmol/L (3.6-5.0)
[2019-09-23 05:52] LABS: ABSOLUTE LYMPHOCYTES# (MANUAL) 1.3 10^3/uL (0.5-4.7); ABSOLUTE MONOCYTES # (MANUAL) 1.1 10^3/uL (0.1-1.4); BASOPHILS % (MANUAL) 0 % (0-2); EOSINOPHILS % (MANUAL) 1 % (0-6); LYMPHOCYTES % (MANUAL) 6 % (13-45); MONOCYTES % (MANUAL) 5 % (3-13); SEGMENTED NEUTROPHILS % (MAN) 88 % (42-78); TOTAL CELLS COUNTED 100
[2019-09-23 05:53] LABS: PLATELET COMMENT ADEQUATE; RBC MORPHOLOGY COMMENT NORMO-CYTIC/CHROMIC
[2019-09-23] MEDS: PANTOPRAZOLE SODIUM 40 MG TABLET.DR PO SCH (06:08)
[2019-09-23] MEDS: HEPARIN SOD (PORCINE) 5,000 UNIT/ML 1 ML VIAL SUBCUT SCH ×3 (06:09→21:51)
[2019-09-23] MEDS: INSULIN REG, HUMAN 100 UNIT/ML 3 ML VIAL (PYX) SUBCUT SCH ×2 (09:08→17:38)
[2019-09-23] MEDS: INSULIN LISPRO 100 UNIT/ML 3 ML VIAL SUBCUT SCH ×3 (09:08→17:25)
[2019-09-23] MEDS: HUM INSULIN NPH/REG INSULIN HM 100 UNIT/1 ML 3 ML SUBCUT SCH ×2 (09:08→17:37)
[2019-09-23] MEDS: HYDROCHLOROTHIAZIDE 25 MG TABLET PO SCH (09:09)
[2019-09-23] MEDS: MULTIVITAMIN TABLET PO SCH (09:09)
[2019-09-23] MEDS: LOSARTAN POTASSIUM 50 MG TABLET PO SCH (09:09)
[2019-09-23] MEDS: FLUTICASONE/VILANTEROL 100-25 MCG/DOSE IH SCH (09:09)
[2019-09-23] MEDS: FLUTICASONE NASAL SPRAY 50 MCG/SPRY 120 SPRAY/16 GM NASL SCH ×2 (09:15→21:51)
[2019-09-23] MEDS: AZITHROMYCIN 500 MG in DEXTROSE 5%-WATER 250 ML IV SCH (10:13)
--- NOTE | 2019-09-23 13:13 | PDOC PROGRESS REPORT ---
Subjective Progress Note for:: 09/23/19 Subjective:: Patient complains of some hemoptysis this morning. Still having significant cough and trouble with expectoration. Still admits to shortness of breath. Denies much improvement since being here. Also takes that she was concerned about taking her 100 units of Lantus last night because she was concerned that sugars may drop significantly but does state that she will definitely take it tonight after noticing that her a.m. fasting blood sugar today was in the 200s. Reason For Visit: SEPSIS,PNEUMONIA,DIABETES Physical Exam Vital Signs: Temp Pulse Resp BP Pulse Ox 98.8 F 96 16 122/41 L 96 09/23/19 12:00 09/23/19 12:00 09/23/19 12:00 09/23/19 12:00 09/23/19 12:00 Intake & Output 09/22/19 09/23/19 09/24/19 06:59 06:59 06:59 Intake Total 4000 700 250 Output Total 1000 Balance 4000 -300 250 Weight 108.9 kg 107.6 kg General appearance: PRESENT: no acute distress, cooperative Respiratory exam: PRESENT: crackles, symmetrical, unlabored. ABSENT: tachypnea, wheezes Cardiovascular exam: PRESENT: RRR, +S1, +S2. ABSENT: tachycardia GI/Abdominal exam: PRESENT: normal bowel sounds, soft. ABSENT: rebound, rigid, tenderness Neurological exam: PRESENT: alert, awake, oriented to person, oriented to place, oriented to time Additional comments: Bloody sputum noticed in collection bag Results Laboratory Results: 09/23/19 04:10 09/23/19 04:10 09/23/19 09/23/19 04:10 04:10 WBC 22.3 H RBC 3.98 Hgb 12.0 Hct 36.0 MCV 90 MCH 30.3 MCHC 33.5 RDW 13.5 Plt Count 248 Seg Neutrophils % Not Reportable Sodium 138.5 Potassium 3.6 Chloride 102 Carbon Dioxide 25 Anion Gap 12 BUN 19 Creatinine 1.05 Est GFR ( Amer) > 60 Glucose 182 H Calcium 8.8 09/21/19 23:50 Blood Blood Culture (PCR) - Final Staphylococcus Species 09/21/19 19:30 Throat Throat Culture - Final NORMAL ALEXANDER Impressions: Abdomen Ultrasound 09/21/19 17:31 IMPRESSION: No gallstones or acute inflammatory changes identified. FATTY INFILTRATION OF THE LIVER. Patient vomiting during exam. Unable to perform left labral decubitus position. Chest X-Ray 09/21/19 19:29 IMPRESSION: Question left lower lobe atelectasis or infiltrate identified on the frontal view but not definitely on the lateral view. Consider CT. Chest CT 09/21/19 20:59 IMPRESSION: Multifocal consolidative and groundglass opacity about the basilar segments of the left lower lobe, most likely indicating pneumonia. Follow-up to clearing is recommended (3 months). TECHNICAL DOCUMENTATION: Quality ID # 436: Final reports with documentation of one or more dose reduction techniques (e.g., Automated exposure control, adjustment of the mA and/or kV according to patient size, use of iterative reconstruction technique) copyright 2011 [employer]- All Rights Reserved Assessment and Plan - Diagnosis (1) Community acquired bacterial pneumonia Is this a current diagnosis for this admission?: Yes Plan: Noted on CT scan image which was reviewed by me Patient notes only mild improvement. As such I will change antibiotics to Levaquin IV. We will continue to follow-up sputum culture Blood culture revealing 1 out of 4 bottles growing coagulase-negative staph which may very well just be a contaminant but I will continue to follow blood culture and repeat cultures. (2) Hemoptysis Is this a current diagnosis for this admission?: Yes Plan: Secondary to airway irritation from pneumonia and difficulty with expectoration Started on Robitussin-DM 3 times daily, IV hydration, and Mucomyst nebulizers to help for easier expectoration. We will give graduated cup to help quantify hemoptysis. (3) Sepsis Qualifiers: Sepsis type: sepsis due to unspecified organism Sepsis acute organ dysfunction status: without acute organ dysfunction Qualified Code(s): A41.9 - Sepsis, unspecified organism Is this a current diagnosis for this admission?: Yes Plan: Secondary to #1 Sepsis has resolved at this time (4) Diabetes 1.5, managed as type 1 Is this a current diagnosis for this admission?: Yes Plan: Lantus 100 units nightly, NPH 30 units twice daily and regular insulin 30 units before breakfast and before supper. Humalog sliding scale ordered. (5) Hypertension Qualifiers: Hypertension type: essential hypertension Qualified Code(s): I10 - [place] l (primary) hypertension Is this a current diagnosis for this admission?: Yes Plan: Losartan - Time Time Spent with patient: 15-24 minutes
[2019-09-23] MEDS: LEVOFLOXACIN 750 MG/D5W RTU 750 MG/150 ML RTUPB IV SCH (13:28)
[2019-09-23] MEDS: NORMAL SALINE 1000 ML 1,000 ML IV PRN ×2 (13:28→23:27)
[2019-09-23] MEDS: ACETYLCYSTEINE 10% NEB 400 MG/4 ML VIAL NEB SCH ×2 (13:28→20:32)
[2019-09-23] MEDS: GUAIFENESIN/D-METHORPHAN (200-20 MG) SYRUP 10 ML PO SCH ×2 (15:57→17:34)
[2019-09-23] MEDS ORDERED: INSULIN GLARGINE,HUM.REC.ANLOG 1,000 UNIT/10 ML VIAL SUBCUT SCH (17:00)
[2019-09-23] MEDS: MONTELUKAST SODIUM 10 MG TABLET PO SCH (21:51)
[2019-09-24] MEDS: IPRATROPIUM/ALBUTEROL 0.5-2.5 MG/3 ML AMPUL NEB SCH ×4 (02:33→20:52)
[2019-09-24 05:05] LABS: ABSOLUTE BASOPHILS # (AUTO) 0.1 10^3/uL (0.0-0.2); ABSOLUTE EOSINOPHILS # (AUTO) 0.1 10^3/uL (0.0-0.6); ABSOLUTE LYMPHOCYTES (AUTO) 1.9 10^3/uL (0.5-4.7); ABSOLUTE MONOCYTES (AUTO) 1.2 10^3/uL (0.1-1.4); ABSOLUTE NEUT (AUTO) 13.7 10^3/uL (1.7-8.2); BASOPHILS % (AUTO) 0.5 % (0-2); EOSINOPHILS % (AUTO) 0.8 % (0-6); HEMATOCRIT 33.1 % (36.0-47.0); MEAN CORPUSCULAR HEMOGLOBIN 30.1 pg (27.0-33.4); MEAN CORPUSCULAR HGB CONC 33.3 g/dL (32.0-36.0); MEAN CORPUSCULAR VOLUME 90 fl (80-97); MONOCYTES % (AUTO) 6.9 % (3-13); PLATELET COUNT 243 10^3/uL (150-450); RED BLOOD COUNT 3.67 10^6/uL (3.72-5.28); RED CELL DISTRIBUTION WIDTH 13.5 % (11.5-14.0); SEGMENTED NEUTROPHILS % (AUTO) 80.8 % (42-78); TOTAL CELLS COUNTED % (AUTO) 100 %; WHITE BLOOD COUNT 16.9 10^3/uL (4.0-10.5)
[2019-09-24] MEDS: HEPARIN SOD (PORCINE) 5,000 UNIT/ML 1 ML VIAL SUBCUT SCH ×3 (05:16→21:34)
[2019-09-24] MEDS: PANTOPRAZOLE SODIUM 40 MG TABLET.DR PO SCH (05:16)
[2019-09-24 05:20] LABS: ANION GAP 10 (5-19); BLOOD UREA NITROGEN 18 mg/dL (7-20); CALCIUM 8.7 mg/dL (8.4-10.2); CARBON DIOXIDE 25 mmol/L (22-30); CHLORIDE 103 mmol/L (98-107); GLUCOSE 102 mg/dL (75-110); POTASSIUM 3.2 mmol/L (3.6-5.0)
[2019-09-24] MEDS: ACETYLCYSTEINE 10% NEB 400 MG/4 ML VIAL NEB SCH ×3 (08:22→20:52)
[2019-09-24] MEDS: INSULIN REG, HUMAN 100 UNIT/ML 3 ML VIAL (PYX) SUBCUT SCH ×2 (08:30→17:12)
[2019-09-24] MEDS: INSULIN LISPRO 100 UNIT/ML 3 ML VIAL SUBCUT SCH ×3 (08:30→16:07)
[2019-09-24] MEDS: NORMAL SALINE 1000 ML 1,000 ML IV PRN ×2 (08:31→17:17)
[2019-09-24] MEDS: HYDROCHLOROTHIAZIDE 25 MG TABLET PO SCH (09:38)
[2019-09-24] MEDS: LEVOFLOXACIN 750 MG/D5W RTU 750 MG/150 ML RTUPB IV SCH (09:38)
[2019-09-24] MEDS: MULTIVITAMIN TABLET PO SCH (09:38)
[2019-09-24] MEDS: LOSARTAN POTASSIUM 50 MG TABLET PO SCH (09:38)
[2019-09-24] MEDS: FLUTICASONE/VILANTEROL 100-25 MCG/DOSE IH SCH (09:38)
[2019-09-24] MEDS: GUAIFENESIN/D-METHORPHAN (200-20 MG) SYRUP 10 ML PO SCH ×3 (09:38→17:12)
[2019-09-24] MEDS: FLUTICASONE NASAL SPRAY 50 MCG/SPRY 120 SPRAY/16 GM NASL SCH ×2 (09:39→21:35)
[2019-09-24] MEDS: HUM INSULIN NPH/REG INSULIN HM 100 UNIT/1 ML 3 ML SUBCUT SCH ×2 (09:39→17:21)
[2019-09-24] MEDS ORDERED: POTASSIUM CHLORIDE 10 MEQ TABLET.ER PO SCH (11:00)
--- NOTE | 2019-09-24 11:00 | PDOC PROGRESS REPORT ---
Subjective Progress Note for:: 09/24/19 Subjective:: Patient endorses feeling a lot better today in terms of her breathing and cough. Still having some hemoptysis but improving. Reason For Visit: SEPSIS,PNEUMONIA,DIABETES Physical Exam Vital Signs: Temp Pulse Resp BP Pulse Ox 98.1 F 88 16 112/49 L 96 09/24/19 03:21 09/24/19 08:22 09/24/19 08:22 09/24/19 03:21 09/24/19 08:22 Intake & Output 09/23/19 09/24/19 09/25/19 06:59 06:59 06:59 Intake Total 700 3902 1000 Output Total 1000 1700 Balance -300 2202 1000 Weight 107.6 kg 115.2 kg General appearance: PRESENT: no acute distress, cooperative Respiratory exam: PRESENT: crackles, unlabored. ABSENT: tachypnea, wheezes Cardiovascular exam: PRESENT: RRR, +S1, +S2. ABSENT: tachycardia GI/Abdominal exam: PRESENT: normal bowel sounds, soft. ABSENT: rebound, rigid, tenderness Neurological exam: PRESENT: alert, awake, oriented to person, oriented to place, oriented to time, oriented to situation Results Laboratory Results: 09/24/19 04:12 09/24/19 04:12 09/24/19 09/24/19 04:12 04:12 WBC 16.9 H RBC 3.67 L Hgb 11.0 L Hct 33.1 L MCV 90 MCH 30.1 MCHC 33.3 RDW 13.5 Plt Count 243 Seg Neutrophils % 80.8 H Sodium 138.4 Potassium 3.2 L Chloride 103 Carbon Dioxide 25 Anion Gap 10 BUN 18 Creatinine 1.11 Est GFR ( Amer) > 60 Glucose 102 Calcium 8.7 09/21/19 23:50 Blood Blood Culture (PCR) - Final Staphylococcus Species 09/21/19 19:30 Throat Throat Culture - Final NORMAL CAYLA Impressions: Abdomen Ultrasound 09/21/19 17:31 IMPRESSION: No gallstones or acute inflammatory changes identified. FATTY INFILTRATION OF THE LIVER. Patient vomiting during exam. Unable to perform left labral decubitus position. Chest X-Ray 09/21/19 19:29 IMPRESSION: Question left lower lobe atelectasis or infiltrate identified on the frontal view but not definitely on the lateral view. Consider CT. Chest CT 09/21/19 20:59 IMPRESSION: Multifocal consolidative and groundglass opacity about the basilar segments of the left lower lobe, most likely indicating pneumonia. Follow-up to clearing is recommended (3 months). TECHNICAL DOCUMENTATION: Quality ID # 436: Final reports with documentation of one or more dose reduction techniques (e.g., Automated exposure control, adjustment of the mA and/or kV according to patient size, use of iterative reconstruction technique) copyright 2011 [employer]- All Rights Reserved Assessment and Plan - Diagnosis (1) Community acquired bacterial pneumonia Is this a current diagnosis for this admission?: Yes Plan: Noted on CT scan image which was reviewed by me Patient endorsing good improvement in symptoms on Levaquin [day 2 of Levaquin, day 4 of antibiotics] Throat culture showed normal cayla and I suspect sputum culture is also growing normal cayla Blood culture revealing 1 out of 4 bottles growing coagulase-negative staph which is likely contaminant as other cultures are negative (2) Hemoptysis Is this a current diagnosis for this admission?: Yes Plan: Secondary to airway irritation from pneumonia and difficulty with expectoration Having improvement with Robitussin-DM 3 times daily, IV hydration, and Mucomyst nebulizers which are allowing for easier expectoration. Has about 18 cc of sputum with about one third of that being hemoptysis over the past 18 hours. This is only mild based on quantity. Continue to quantify hemoptysis. (3) Sepsis Qualifiers: Sepsis type: sepsis due to unspecified organism Sepsis acute organ dysfunction status: without acute organ dysfunction Qualified Code(s): A41.9 - Sepsis, unspecified organism Is this a current diagnosis for this admission?: Yes Plan: Secondary to #1 Sepsis has resolved at this time (4) Diabetes 1.5, managed as type 1 Is this a current diagnosis for this admission?: Yes Plan: Lantus 100 units nightly, NPH 30 units twice daily and regular insulin 30 units before breakfast and before supper. Humalog sliding scale ordered. (5) Hypertension Qualifiers: Hypertension type: essential hypertension Qualified Code(s): I10 - Essential (primary) hypertension Is this a current diagnosis for this admission?: Yes Plan: Losartan - Time Time Spent with patient: 15-24 minutes - Inpatient Certification Medical Necessity: Need For IV Fluids, Need for Nebulizer Therapy and Monitoring of Response, Need for IV Antibiotics
[2019-09-24] MEDS ORDERED: ONDANSETRON HCL INJ/PF 4 MG/2 ML SDV IV PRN (12:45)
[2019-09-24] MEDS ORDERED: INSULIN GLARGINE,HUM.REC.ANLOG 1,000 UNIT/10 ML VIAL SUBCUT SCH (17:00)
[2019-09-24] MEDS: MONTELUKAST SODIUM 10 MG TABLET PO SCH (21:34)
[2019-09-25] MEDS: HEPARIN SOD (PORCINE) 5,000 UNIT/ML 1 ML VIAL SUBCUT SCH (05:41)
[2019-09-25] MEDS: PANTOPRAZOLE SODIUM 40 MG TABLET.DR PO SCH (05:42)
[2019-09-25 05:45] LABS: ANION GAP 10 (5-19); BLOOD UREA NITROGEN 16 mg/dL (7-20); CALCIUM 8.4 mg/dL (8.4-10.2); CARBON DIOXIDE 22 mmol/L (22-30); CHLORIDE 103 mmol/L (98-107); GLUCOSE 263 mg/dL (75-110); POTASSIUM 4.2 mmol/L (3.6-5.0)
[2019-09-25 05:47] LABS: HEMATOCRIT 32.9 % (36.0-47.0); MEAN CORPUSCULAR HEMOGLOBIN 30.6 pg (27.0-33.4); MEAN CORPUSCULAR HGB CONC 33.6 g/dL (32.0-36.0); MEAN CORPUSCULAR VOLUME 91 fl (80-97); PLATELET COUNT 249 10^3/uL (150-450); RED BLOOD COUNT 3.61 10^6/uL (3.72-5.28); RED CELL DISTRIBUTION WIDTH 13.6 % (11.5-14.0); WHITE BLOOD COUNT 11.1 10^3/uL (4.0-10.5)
[2019-09-25 06:12] LABS: ABSOLUTE LYMPHOCYTES# (MANUAL) 1.2 10^3/uL (0.5-4.7); BASOPHILS % (MANUAL) 0 % (0-2); EOSINOPHILS % (MANUAL) 3 % (0-6); LYMPHOCYTES % (MANUAL) 10 % (13-45); MONOCYTES % (MANUAL) 9 % (3-13); SEGMENTED NEUTROPHILS % (MAN) 77 % (42-78); TOTAL CELLS COUNTED 100
[2019-09-25 06:14] LABS: OVALOCYTES SLIGHT; PLATELET COMMENT ADEQUATE; POIKILOCYTOSIS SLIGHT
[2019-09-25] MEDS: IPRATROPIUM/ALBUTEROL 0.5-2.5 MG/3 ML AMPUL NEB SCH (08:04)
[2019-09-25] MEDS: ACETYLCYSTEINE 10% NEB 400 MG/4 ML VIAL NEB SCH (08:04)
[2019-09-25] MEDS: INSULIN REG, HUMAN 100 UNIT/ML 3 ML VIAL (PYX) SUBCUT SCH (08:12)
[2019-09-25] MEDS: INSULIN LISPRO 100 UNIT/ML 3 ML VIAL SUBCUT SCH ×2 (08:12→12:03)
[2019-09-25] MEDS: LOSARTAN POTASSIUM 50 MG TABLET PO SCH (09:20)
[2019-09-25] MEDS: MULTIVITAMIN TABLET PO SCH (09:20)
[2019-09-25] MEDS: FLUTICASONE NASAL SPRAY 50 MCG/SPRY 120 SPRAY/16 GM NASL SCH (09:21)
[2019-09-25] MEDS: GUAIFENESIN/D-METHORPHAN (200-20 MG) SYRUP 10 ML PO SCH (09:21)
[2019-09-25] MEDS: FLUTICASONE/VILANTEROL 100-25 MCG/DOSE IH SCH (09:21)
[2019-09-25] MEDS: HYDROCHLOROTHIAZIDE 25 MG TABLET PO SCH (09:21)
[2019-09-25] MEDS: LEVOFLOXACIN 750 MG/D5W RTU 750 MG/150 ML RTUPB IV SCH (09:23)
[2019-09-25] MEDS ORDERED: HUM INSULIN NPH/REG INSULIN HM 100 UNIT/1 ML 3 ML SUBCUT SCH ×2 (10:00)
[2019-09-25 11:57] VITALS: BP 90/46
--- NOTE | 2019-09-25 12:19 | PDOC DISCHARGE SUMMARY ---
Impression - Admit/DC Date/PCP Admission Date/Primary Care Provider: 09/22/19 00:49 DENNIS HAQUE MD Discharge Date: 09/25/19 - Discharge Diagnosis (1) Community acquired bacterial pneumonia Is this a current diagnosis for this admission?: Yes (2) Hemoptysis Is this a current diagnosis for this admission?: Yes (3) Sepsis Is this a current diagnosis for this admission?: Yes (4) Diabetes 1.5, managed as type 1 Is this a current diagnosis for this admission?: Yes (5) Hypertension Is this a current diagnosis for this admission?: Yes (6) Contamination of blood culture Is this a current diagnosis for this admission?: Yes - Assessment Summary: Patient was admitted with complaints of shortness of breath and cough. CT scan of her chest without contrast revealed bilateral infiltrates consistent with pneumonia but worse in the left side. Blood cultures were obtained. CBC revealed significant leukocytosis over 20,000. Patient also received IV fluids. Patient was started on antibiotics IV and placed on ceftriaxone and azithromycin. Patient's white count started to improve. However patient still complains of no significant improvement of shortness of breath and difficulty with expectoration. She also complained of hemoptysis which was quantified using a graduated cup and noted to be only mild in amount. Hemoptysis was likely secondary to airway irritation from patient's pneumonia and coughing. Patient was given Robitussin DM and Mucomyst nebulizers to help with expectoration along with IV fluids. Antibiotics were also changed to Levaquin. Patient is also endorsed feeling a lot better. WBC continues to trend down and last was 11,000. During this hospitalization, patient often became hypoglycemic in the morning. Patient was on a home regimen of regular insulin 30 units twice a day, 70/30 insulin 30 units twice a day and Lantus 100 units nightly. Instructed patient to use discontinue the regular insulin as it is already contained in the NPH/regular 70/30 which he takes before breakfast and before supper. I have advised her to monitor her blood sugars closely and record her fasting blood sugars, pre-dinner and pre-bedtime and discuss this with her primary care physician. I have advised that if her blood sugars continue to be low in the morning she should consider also cutting down on the Lantus dose to 80 or 60u qhs. Patient states that she has lost a lot of of weight given a carb restricted diet but has been on the same insulin regimen since 2010. It is possible diet insulin requirements but have decreased given her weight loss. The patient will follow-up with her primary care physician for further management of her diabetes. Patient has been discharged on Levaquin for 4 more days to complete 7 to 8-day treatment of her pneumonia. - Additional Information Resuscitation Status: Full Code Discharge Diet: As Tolerated, Diabetic Discharge Activity: Activity As Tolerated, Balance Activity w/Rest Referrals: DENNIS HAQUE MD [Primary Care Provider] - 10/04/19 2:00 pm Prescriptions: Levofloxacin [Levaquin 750 mg Tablet] 750 mg PO DAILY #4 tablet Guaifenesin/D-Methorphan Hb [Robitussin-Dm Syrup 10 ml Udcup] 10 ml PO TIDP PRN #200 ml PRN Reason: Ondansetron HCl [Zofran 4 mg Tablet] 1 - 2 tab PO Q4HP PRN #10 tablet PRN Reason: Home Medications: Fluticasone Propionate [Flonase Nasal Tarzana 50 Mcg/Tarzana 16 gm] 1 spray NASL Q12 11/10/16 Hum Insulin NPH/Reg Insulin Hm [Insulin 70-30 (NPH/Reg) 100 unit/mL] 30 unit SUBCUT BID 11/10/16 Insulin Glargine,Hum.rec.anlog [Lantus] 100 unit SQ QHS 11/10/16 Albuterol Sulfate [Ventolin Hfa 8 gm Mdi (1 Mdi/ER Disp)] 2 puff IH Q6HP PRN 10/12/18 Montelukast Sodium [Singulair 10 mg Tablet] 10 mg PO QHS 10/12/18 Omeprazole 40 mg PO DAILY 10/12/18 Chlorpheniramine Maleate [Chlor-Trimeton 4 mg Tablet] 4 mg PO Q4HP PRN 09/22/19 Losartan/Hydrochlorothiazide [Losartan-Hctz 100-25 mg Tab] 1 each PO DAILY 09/22/19 Mometasone/Formoterol [Dulera 200 Mcg/5 Mcg Inhaler] 2 puff IH Q12 09/22/19 Multivitamin [Tab-A-Thai (Multiple Vitamin) Tablet] 1 tab PO DAILY 09/22/19 Selenium [Selenimin] 400 mcg PO BID 09/22/19 Guaifenesin/D-Methorphan Hb [Robitussin-Dm Syrup 10 ml Udcup] 10 ml PO TIDP PRN #200 ml 09/25/19 Levofloxacin [Levaquin 750 mg Tablet] 750 mg PO DAILY #4 tablet 09/25/19 Ondansetron HCl [Zofran 4 mg Tablet] 1 - 2 tab PO Q4HP PRN #10 tablet 09/25/19 History of Present Illiness History of Present Illness: JAEL KEY is a 49 year old female with a past medical history of morbid obesity, GERD, asthma and pneumonia. Patient presents with 3 or 4 days of shortness of breath and productive cough developing a fever she is prompted to seek evaluation emergency room where she is found to have a temperature of 103.0, hypotension, leukocytosis of 24,[address] showing bilateral infiltrates suggestive of pneumonia. Previous pneumonia culture resulted strep pneumonia. She started on Levaquin and Rocephin and referred to the hospitalist for admission. She denies rhinorrhea, sore throat, uncontrolled acid reflux. Physical Exam Vital Signs: Temp Pulse Resp BP Pulse Ox 98.1 F 81 18 90/46 L 93 09/25/19 11:52 09/25/19 11:52 09/25/19 11:52 09/25/19 11:52 09/25/19 11:52 Intake & Output 09/24/19 09/25/19 09/26/19 06:59 06:59 06:59 Intake Total 3902 4288 150 Output Total 1700 1050 Balance 2202 3238 150 Weight 115.2 kg General appearance: PRESENT: no acute distress, cooperative Respiratory exam: PRESENT: clear to auscultation jing Results Laboratory Results: WBC 11.1 10^3/uL (4.0-10.5) H 09/25/19 05:05 RBC 3.61 10^6/uL (3.72-5.28) L 09/25/19 05:05 Hgb 11.0 g/dL (12.0-15.5) L 09/25/19 05:05 Hct 32.9 % (36.0-47.0) L 09/25/19 05:05 MCV 91 fl (80-97) 09/25/19 05:05 MCH 30.6 pg (27.0-33.4) 09/25/19 05:05 MCHC 33.6 g/dL (32.0-36.0) 09/25/19 05:05 RDW 13.6 % (11.5-14.0) 09/25/19 05:05 Plt Count 249 10^3/uL (150-450) 09/25/19 05:05 Lymph % (Auto) Not Reportable 09/25/19 05:05 [place] % (Auto) Not Reportable 09/25/19 05:05 Eos % (Auto) Not Reportable 09/25/19 05:05 Baso % (Auto) Not Reportable 09/25/19 05:05 Absolute Neuts (auto) Not Reportable 09/25/19 05:05 Absolute Lymphs (auto) Not Reportable 09/25/19 05:05 Absolute Monos (auto) Not Reportable 09/25/19 05:05 Absolute Eos (auto) Not Reportable 09/25/19 05:05 Absolute Basos (auto) Not Reportable 09/25/19 05:05 Total Counted 100 09/25/19 05:05 Seg Neutrophils % Not Reportable 09/25/19 05:05 Seg Neuts % (Manual) 77 % (42-78) 09/25/19 05:05 Band Neutrophils % 2 % (3-5) L 09/22/19 06:00 Lymphocytes % (Manual) 10 % (13-45) L 09/25/19 05:05 Atypical Lymphs % 1 % (0) 09/25/19 05:05 Monocytes % (Manual) 9 % (3-13) 09/25/19 05:05 Eosinophils % (Manual) 3 % (0-6) 09/25/19 05:05 Basophils % (Manual) 0 % (0-2) 09/25/19 05:05 Abs Neuts (Manual) 8.5 10^3/uL (1.7-8.2) H 09/25/19 05:05 Abs Lymphs (Manual) 1.2 10^3/uL (0.5-4.7) 09/25/19 05:05 Abs Monocytes (Manual) 1.0 10^3/uL (0.1-1.4) 09/25/19 05:05 Absolute Eos (Manual) 0.3 10^3/uL (0.0-0.6) 09/25/19 05:05 Abs Basophils (Manual) 0.0 10^3/uL (0.0-0.2) 09/25/19 05:05 Toxic Granulation SLIGHT 09/22/19 06:00 Platelet Comment ADEQUATE 09/25/19 05:05 Poikilocytosis SLIGHT 09/25/19 05:05 Ovalocytes SLIGHT 09/25/19 05:05 RBC Morph Comment NORMO-CYTIC/CHROMIC 09/23/19 04:10 Sodium 135.0 mmol/L (137-145) L 09/25/19 05:05 Potassium 4.2 mmol/L (3.6-5.0) 09/25/19 05:05 Chloride 103 mmol/L (98-107) 09/25/19 05:05 Carbon Dioxide 22 mmol/L (22-30) 09/25/19 05:05 Anion Gap 10 (5-19) 09/25/19 05:05 BUN 16 mg/dL (7-20) 09/25/19 05:05 Creatinine 0.98 mg/dL (0.52-1.25) 09/25/19 05:05 Est GFR ( Amer) > 60 (>60) 09/25/19 05:05 Est GFR (MDRD) Non-Af > 60 (>60) 09/25/19 05:05 Glucose 263 mg/dL (75-110) H 09/25/19 05:05 POC Glucose 264 mg/dL (70-110) H 09/25/19 11:55 Lactic Acid 1.3 mmol/L (0.7-2.1) 09/22/19 09:25 Calcium 8.4 mg/dL (8.4-10.2) 09/25/19 05:05 Total Bilirubin 0.8 mg/dL (0.2-1.3) 09/21/19 17:49 Direct Bilirubin 0.3 mg/dL (0.0-0.4) 09/21/19 17:49 Neonat Total Bilirubin Not Reportable 09/21/19 17:49 Neonat Direct Bilirubin Not Reportable 09/21/19 17:49 Neonat Indirect Bili Not Reportable 09/21/19 17:49 AST 46 U/L (14-36) H 09/21/19 17:49 ALT 58 U/L (<35) 09/21/19 17:49 Alkaline Phosphatase 121 U/L (38-126) 09/21/19 17:49 Total Protein 8.2 g/dL (6.3-8.2) 09/21/19 17:49 Albumin 4.6 g/dL (3.5-5.0) 09/21/19 17:49 Lipase < 10.0 U/L (23-300) L 09/21/19 17:49 Urine Color MIKE 09/21/19 21:09 Urine Appearance CLOUDY 09/21/19 21:09 Urine pH 5.0 (5.0-9.0) 09/21/19 21:09 Ur Specific [place] 1.025 09/21/19 21:09 Urine Protein 30 mg/dL (NEGATIVE) H 09/21/19 21:09 Urine Glucose (UA) NEGATIVE mg/dL (NEGATIVE) 09/21/19 21:09 Urine Ketones NEGATIVE mg/dL (NEGATIVE) 09/21/19 21:09 Urine Blood NEGATIVE (NEGATIVE) 09/21/19 21:09 Urine Nitrite NEGATIVE (NEGATIVE) 09/21/19 21:09 Urine Bilirubin NEGATIVE (NEGATIVE) 09/21/19 21:09 Urine Urobilinogen 2.0 mg/dL (<2.0) H 09/21/19 21:09 Ur Leukocyte Esterase NEGATIVE (NEGATIVE) 09/21/19 21:09 Urine WBC (Auto) 5 /HPF 09/21/19 21:09 Urine RBC (Auto) 2 /HPF 09/21/19 21:09 U Hyaline Cast (Auto) 47 /LPF 09/21/19 21:09 Urine Bacteria (Auto) TRACE /HPF 09/21/19 21:09 Squamous Epi Cells Auto 10 /HPF 09/21/19 21:09 Urine Mucus (Auto) MOD /LPF 09/21/19 21:09 Urine Ascorbic Acid NEGATIVE (NEGATIVE) 09/21/19 21:09 Influenza A (Rapid) NEGATIVE (NEGATIVE) 09/21/19 17:49 Influenza B (Rapid) NEGATIVE (NEGATIVE) 09/21/19 17:49 Group A Strep Rapid NEGATIVE (NEGATIVE) 09/21/19 19:30 Impressions: Abdomen Ultrasound 09/21/19 17:31 IMPRESSION: No gallstones or acute inflammatory changes identified. FATTY INFILTRATION OF THE LIVER. Patient vomiting during exam. Unable to perform left labral decubitus position. Chest X-Ray 09/21/19 19:29 IMPRESSION: Question left lower lobe atelectasis or infiltrate identified on the frontal view but not definitely on the lateral view. Consider CT. Chest CT 09/21/19 20:59 IMPRESSION: Multifocal consolidative and groundglass opacity about the basilar segments of the left lower lobe, most likely indicating pneumonia. Follow-up to clearing is recommended (3 months). TECHNICAL DOCUMENTATION: Quality ID # 436: Final reports with documentation of one or more dose reduction techniques (e.g., Automated exposure control, adjustment of the mA and/or kV according to patient size, use of iterative reconstruction technique) copyright 2011 [employer]- All Rights Reserved Plan Time Spent: Less than 30 Minutes Stroke Is this a Stroke Patient?: No Acute Heart Failure - Is this a Heart Failure Patient?: No
== END 2019-09-25 12:30 | disposition home or self-care (01) | DRG 871 ==
LOC: ER 16:57 → EH 09-22 00:49 → 3N 09-22 06:40 → 3W 09-24 10:27
PROVIDERS: ADMIT Internal Medicine; ATTEND Internal Medicine
DX: A41.9 Sepsis, unspecified organism (principal); J18.9 Pneumonia, unspecified organism; R04.2 Hemoptysis; Z68.41 Body mass index [BMI] 40.0-44.9, adult; E13.649 Other specified diabetes mellitus with hypoglycemia without coma; I10 Essential (primary) hypertension; K21.9 Gastro-esophageal reflux disease without esophagitis; E78.5 Hyperlipidemia, unspecified; J45.909 Unspecified asthma, uncomplicated; E66.01 Morbid (severe) obesity due to excess calories; Z79.4 Long term (current) use of insulin; Z87.01 Personal history of pneumonia (recurrent); Z82.49 Family history of ischemic heart disease and other diseases of the circulatory system; Z88.3 Allergy status to other anti-infective agents; Z88.8 Allergy status to other drugs, medicaments and biological substances; Z23 Encounter for immunization
CPT/HCPCS: 36415; 71046; 71250; 76705; 80048; 80053; 81001; 82962; 83605; 83690; 85025; 87040; 87070; 87077; 87150; 87186; 87205; 87804; 87880; 90686; 94640; 94667; 94668; 94799; 96361; 96365; 96375; 99285; J0456; J0696; J1644; J1815; J1956; J2405; J2765; J3490; J7030; J7060; J7620; S0119

== ENCOUNTER 2020-05-24 13:46 | Inpatient (IN) | payer BC ==
--- NOTE | 2020-05-24 14:18 | ER Document Report ---
ED Medical Screen (RME) - General Chief Complaint: Weakness Stated Complaint: WEAKNESS Time Seen by Provider: 05/24/20 14:10 Primary Care Provider: DENNIS HAQUE MD [Primary Care Provider] - Follow up as needed Mode of Arrival: Wheelchair Information source: Patient Notes: Patient is a 50-year-old female presenting to the emergency department with concern for unsteady gait that began yesterday at 2:30 PM. She reports some left-sided weakness, reports she had a headache yesterday took Tylenol which resolved the headache. She is not on any blood thinners has no history of strokes, did not have any facial drooping but this morning reported slurred speech. She has a history of hypertension diabetes. Stroke alert was activated. No obvious focal neurological deficits noted on exam. I have greeted and performed a rapid initial assessment of this patient. A comprehensive ED assessment and evaluation of the patient, analysis of test results and completion of the medical decision making process will be conducted by additional ED providers. I have specifically instructed the patient or family members with the patient to immediately return to any nursing staff should anything change in the patient's condition or with their chief complaint. TRAVEL OUTSIDE OF THE [place] IN LAST 30 DAYS: No - Related Data Allergies/Adverse Reactions: erythromycin base Allergy (Verified 09/21/19 17:24) ketorolac [From Toradol] Allergy (Verified 09/21/19 17:24) Past Medical History - Past Medical History Cardiac Medical History: Reports: Hx Hypercholesterolemia, Hx Hypertension Denies: Hx Heart Attack Pulmonary Medical History: Reports: Hx Asthma Neurological Medical History: Denies: Hx Cerebrovascular Accident, Hx Seizures Endocrine Medical History: Reports: Hx Diabetes Mellitus Type 1 Renal/ Medical History: Denies: Hx Peritoneal Dialysis GI Medical History: Denies: Hx Hepatitis, Hx Hiatal Hernia, Hx Ulcer Infectious Medical History: Denies: Hx Hepatitis Past Surgical History: Denies: Hx Mastectomy, Hx Open Heart Surgery, Hx Pacemak er - Immunizations Hx Diphtheria, Pertussis, Tetanus Vaccination: Yes Physical Exam - Vital signs Vitals: Temp Pulse Resp BP Pulse Ox 98.0 F 81 18 145/61 H 94 05/24/20 13:53 05/24/20 13:53 05/24/20 13:53 05/24/20 13:53 05/24/20 13:53 Course - Vital Signs Vital signs: Temp Pulse Resp BP Pulse Ox 98.0 F 81 18 145/61 H 94 05/24/20 13:53 05/24/20 13:53 05/24/20 13:53 05/24/20 13:53 05/24/20 13:53 Doctor's Discharge - Discharge Referrals: DENNIS HAQUE MD [Primary Care Provider] - Follow up as needed
--- NOTE | 2020-05-24 14:40 | RADIOLOGY REPORT (SQ) ---
EXAM DESCRIPTION: CT HEAD WITHOUT IMAGES COMPLETED DATE/TIME: 05/24/2020 2:25 pm REASON FOR STUDY: stroke alert COMPARISON: None. TECHNIQUE: Axial images acquired through the brain without intravenous contrast. Images reviewed wi th bone, brain and subdural windows. Additional sagittal and coronal reconstructions were generated. Images stored on PACS. All CT scanners at this facility use dose modulation, iterative reconstruction, and/or weight based d osing when appropriate to reduce radiation dose to as low as reasonably achievable (ALARA). [facility]: Dose Right [facility]: CareDose [facility]: Dose Right [facility]: Teradose 4D [facility]: Admazely RADIATION DOSE: CT Rad equipment meets quality standard of care and radiation dose reduction techniq ues were employed. CTDIvol: 53.2 mGy. DLP: 1097 mGy-cm. LIMITATIONS: None. FINDINGS: There is no acute intracranial hemorrhage, vascular territorial infarct, extra-axial fluid collection, mass effect or midline shift. The parker-white matter differentiation is preserved. The caliber of the ventricles is concordant with the degree of sulcation. There is no effacement of the cerebral sulci or basal subarachnoid cisterns. There is a band around the left globe. The orbits are intact. The paranasal sinuses are clear. The re is no fracture of the calvarium. IMPRESSION: No acute intracranial abnormality. EVIDENCE OF ACUTE STROKE: NO. COMMENT: This report was called to ELEUTERIO LAM NP at14:33 on 05/24/2020. Quality ID # 436: Final reports with documentation of one or more dose reduction techniques (e.g., Au tomated exposure control, adjustment of the mA and/or kV according to patient size, use of iterative reconstruction technique) TECHNICAL DOCUMENTATION: JOB ID: [id number] 2010 [employer]- All Rights Reserved Reading location - IP/workstation name: [employer]CHNICIAN-[email or web address]
--- NOTE | 2020-05-24 14:45 | ER Document Report ---
ED Neuro Symptoms/Deficit - General Chief Complaint: Weakness Stated Complaint: WEAKNESS Time Seen by Provider: 05/24/20 14:10 Primary Care Provider: DENNIS HAQUE MD [NO LOCAL MD] - Follow up as needed Mode of Arrival: Wheelchair Notes: HPI: Patient is a 50-year-old female that presents today stating yesterday around 2 PM she started to feel little "unsteady gait" and believes her left leg was slightly weaker than the right. She states she did not come in yesterday because she was hoping that it would "go away". She states that it did not. Slightly better however. She came in for further evaluation. She states a mild 1 out of 10 headache when asked on review of systems yesterday. She denies any headache today. No chest pain, palpitations, fevers, cough, shortness of b reath. Patient does have a history of diabetes and high blood pressure. ROS: See HPI All other review of systems reviewed and otherwise negative Reviewed vital signs and nursing note as charted by RN. PHYSICAL EXAM: CONSTITUTIONAL: Alert and oriented and responds appropriately to questions. Well-appearing; well-nourished HEAD: Normocephalic; atraumatic EYES: PERRL; full extraocular range of motion; no nystagmus ENT: Normal nose; no rhinorrhea; moist mucous membranes; pharynx without lesions noted NECK: Supple without meningismus; no carotid bruit; non-tender; no cervical lymphadenopathy, no masses CARD: Regular rate and rhythm; no murmurs; symmetric distal pulses RESP: Normal chest excursion without splinting or tachypnea; breath sounds clear and equal bilaterally; no wheezes, no rhonchi, no rales ABD/GI: Normal bowel sounds; elevated BMI; soft, non-tender; no palpable org anomegaly or masses BACK: The back appears normal and is non-tender to palpation EXT: Normal ROM in all joints; non-tender to palpation; no edema SKIN: No acute lesions noted NEURO: CN 2-12 intact; 5/5 bilateral upper and lower extremity strength with sensation intact to light touch; I walked the patient with no obvious apparent weakness. Patient is Van score negative. NIH score is 0 PSYCH: The patient's mood and manner are appropriate. Grooming and personal hygiene are appropriate. TRAVEL OUTSIDE OF THE [place] IN LAST 30 DAYS: No - Related Data Allergies/Adverse Reactions: erythromycin base Allergy (Verified 09/21/19 17:24) ketorolac [From Toradol] Allergy (Verified 09/21/19 17:24) Past Medical History - General Information source: Patient - Social History Smoking Status: Unknown if Ever Smoked Family History: Reviewed & Not Pertinent - Past Medical History Cardiac Medical History: Reports: Hx Hypercholesterolemia, Hx Hypertension Denies: Hx Heart Attack Pulmonary Medical History: Reports: Hx Asthma Neurological Medical History: Denies: Hx Cerebrovascular Accident, Hx Seizures Endocrine Medical History: Reports: Hx Diabetes Mellitus Type 1 Renal/ Medical History: Denies: Hx Peritoneal Dialysis GI Medical History: Denies: Hx Hepatitis, Hx Hiatal Hernia, Hx Ulcer Infectious Medical History: Denies: Hx Hepatitis Past Surgical History: Denies: Hx Mastectomy, Hx Open Heart Surgery, Hx Pacemaker - Immunizations Hx Diphtheria, Pertussis, Tetanus Vaccination: Yes Physical Exam - Vital signs Vitals: Temp Pulse Resp BP Pulse Ox 98.0 F 81 18 145/61 H 94 05/24/20 13:53 05/24/20 13:53 05/24/20 13:53 05/24/20 13:53 05/24/20 13:53 Course - Re-evaluation Re-evalutation: Given the history and physical examination, the patient was taken immediately to CT scan. NIH score as recorded, greater than 4.5 hours from onset, Van score negative. I do not believe the patient is a TPA or extraction candidate. I am not detecting any focal neurological deficits. I walked the patient and do not detect any gait disturbance. No obvious finger-nose abnormality. 05/24/20 14:47 CT scan as recorded. EKG shows heart of 77, normal sinus rhythm, normal axis, poor wave progression, no obvious ST elevation or depression. Old EKG from 2017 shows no obvious appreciable change. 05/24/20 15:43 Labs as recorded. No change in exam. I have ordered the MRI to help expedite the imaging and will admit the patient to the hospital for further evaluation and treatment. Aspirin has been provided. - Vital Signs Vital signs: Temp Pulse Resp BP Pulse Ox 98.0 F 81 18 145/61 H 100 05/24/20 13:53 05/24/20 13:53 05/24/20 13:53 05/24/20 13:53 05/24/20 14:38 - Laboratory Result Diagrams: 05/24/20 14:41 05/24/20 14:41 Discharge - Discharge Clinical Impression: Gait disturbance, Left leg weakness Condition: Fair Disposition: ADMITTED OBSERVATION Admitting Provider: [facility] Admitted: Telemetry Referrals: DENNIS HAQUE MD [NO LOCAL MD] - Follow up as needed
[2020-05-24] MEDS ORDERED: ASPIRIN 325 MG TABLET PO ONE (14:47)
[2020-05-24 14:51] LABS: ABSOLUTE BASOPHILS # (AUTO) 0.1 10^3/uL (0.0-0.2); ABSOLUTE EOSINOPHILS # (AUTO) 0.1 10^3/uL (0.0-0.6); ABSOLUTE LYMPHOCYTES (AUTO) 2.8 10^3/uL (0.5-4.7); ABSOLUTE MONOCYTES (AUTO) 0.6 10^3/uL (0.1-1.4); ABSOLUTE NEUT (AUTO) 5.3 10^3/uL (1.7-8.2); BASOPHILS % (AUTO) 0.8 % (0-2); EOSINOPHILS % (AUTO) 1.5 % (0-6); HEMATOCRIT 42.5 % (36.0-47.0); HEMOGLOBIN 14.8 g/dL (12.0-15.5); MEAN CORPUSCULAR HEMOGLOBIN 30.9 pg (27.0-33.4); MEAN CORPUSCULAR HGB CONC 34.7 g/dL (32.0-36.0); MEAN CORPUSCULAR VOLUME 89 fl (80-97); PLATELET COUNT 290 10^3/uL (150-450); RED BLOOD COUNT 4.78 10^6/uL (3.72-5.28); RED CELL DISTRIBUTION WIDTH 13.8 % (11.5-14.0); SEGMENTED NEUTROPHILS % (AUTO) 59.7 % (42-78); TOTAL CELLS COUNTED % (AUTO) 100 %; WHITE BLOOD COUNT 8.9 10^3/uL (4.0-10.5)
[2020-05-24 14:57] LABS: INTERNATIONAL RATION (INR) 0.85; PROTHROMBIN TIME 11.8 SEC (11.4-15.4)
[2020-05-24 15:08] LABS: ALBUMIN 4.3 g/dL (3.5-5.0); ALKALINE PHOSPHATASE 105 U/L (38-126); ANION GAP 7 (5-19); ASPARTATE AMINO TRANSFERASE 34 U/L (14-36); BILIRUBIN,DIRECT 0.3 mg/dL (0.0-0.4); BILIRUBIN,TOTAL 0.5 mg/dL (0.2-1.3); BLOOD UREA NITROGEN 15 mg/dL (7-20); CALCIUM 9.6 mg/dL (8.4-10.2); CARBON DIOXIDE 29 mmol/L (22-30); CHLORIDE 105 mmol/L (98-107); CREATINE KINASE 117 U/L (30-135); GLUCOSE 98 mg/dL (75-110); POTASSIUM 3.9 mmol/L (3.6-5.0); TOTAL PROTEIN 7.8 g/dL (6.3-8.2)
--- NOTE | 2020-05-24 15:16 | EKG REPORT ---
SEVERITY:- ABNORMAL ECG - SINUS RHYTHM PROBABLE INFERIOR INFARCT, OLD ANTERIOR INFARCT, OLD : Confirmed by: Trever Cruz MD 24-May-2020 15:14:54
--- NOTE | 2020-05-24 15:16 | RADIOLOGY REPORT (SQ) ---
EXAM DESCRIPTION: CHEST SINGLE VIEW IMAGES COMPLETED DATE/TIME: 05/24/2020 3:03 pm REASON FOR STUDY: stroke alert COMPARISON: PA and lateral views of the chest from 09/21/2019. EXAM PARAMETERS: NUMBER OF VIEWS: One view. TECHNIQUE: An AP view of the chest was obtained. RADIATION DOSE: NA LIMITATIONS: None. FINDINGS: LUNGS AND PLEURA: No consolidation, pleural effusion or pneumothorax. MEDIASTINUM AND HILAR STRUCTURES: No mediastinal or hilar contour abnormality. HEART AND VASCULAR STRUCTURES: The cardiac silhouette is borderline enlarged. BONES: No acute findings. HARDWARE: None in the chest. OTHER: No other finding. IMPRESSION: No acute cardiopulmonary process. TECHNICAL DOCUMENTATION: JOB ID: [id number] 2010 [employer]- All Rights Reserved Reading location - IP/workstation name: [email or web address]
[2020-05-24 15:20] LABS: CREATINE KINASE MB 2.24 ng/mL (<4.55); TROPONIN I 0.013 ng/mL
--- NOTE | 2020-05-24 16:36 | RADIOLOGY REPORT (SQ) ---
EXAM DESCRIPTION: MRI HEAD WITHOUT IMAGES COMPLETED DATE/TIME: 05/24/2020 3:13 pm REASON FOR STUDY: MP; gait disturbance with possible transient left- leg weakness and limited moveme nt in the left arm. Dizziness since yesterday. Off balance, weakness, headache, slurred speech, lef t burning. . COMPARISON: None. TECHNIQUE: Multiplanar imaging includes non-contrasted T1, T2, FLAIR, and diffusion with ADC map seq uences. Images stored on PACS. LIMITATIONS: None. FINDINGS: ANATOMY: No anomalies. Normal vascular flow voids. Pituitary fossa normal. CSF SPACES: Normal in size and contour. No hemorrhage. CEREBRUM: Sulci and gyri normal in size and contour. Normal white matter signal on FLAIR imaging. No evidence of hemorrhage, mass, or extraaxial fluid collection. POSTERIOR FOSSA: No signal alteration. No hemorrhage. No edema, masses or mass effect. Internal shailesh tory canals, cerebello-pontine angles, mastoids normal. DIFFUSION IMAGING: There is a 5 mm focus of restricted diffusion in the right katelyn consistent with ac [place] ischemia. No significant mass effect or surrounding edema. There is very mild corresponding T2 signal, possibly late acute to early subacute timing. No other foci or area of restricted diffusion. ORBITS: No masses. Globes normal. PARANASAL SINUSES: No fluid levels. Mucosa normal. OTHER: No other significant finding. IMPRESSION: 1. Acute ischemia in the right katelyn. No associated mass effect or evidence of herniation. EVIDENCE OF ACUTE STROKE: Yes RIGHT VERTEBROBASILAR COMMENT: Findings discussed with Dr Marquez on 05/24/2020 at 1628 hours. TECHNICAL DOCUMENTATION: JOB ID: [id number] 2010 [email or web address]- All Rights Reserved Reading location - IP/workstation name: [email or web address]
[2020-05-24] MEDS ORDERED: NORMAL SALINE 1000 ML 1,000 ML IV PRN (16:55)
[2020-05-24] MEDS ORDERED: DOCUSATE SODIUM 100 MG CAPSULE PO PRN (16:55)
[2020-05-24] MEDS ORDERED: ACETAMINOPHEN 325 MG TABLET PO PRN (16:55)
[2020-05-24] MEDS ORDERED: GLUCAGON,HUMAN RECOMB 1 MG INJ IM PRN (17:19)
[2020-05-24] MEDS ORDERED: DEXTROSE 50%-WATER 25 GM/50 ML DISP.SYRIN IV PRN ×2 (17:19)
[2020-05-24] MEDS ORDERED: DEXTROSE 40% GEL 15 GM TUBE PO PRN ×2 (17:19)
--- NOTE | 2020-05-24 20:23 | PDOC H&P ---
History of Present Illness Admission Date/PCP: 05/24/20 17:01 NIALL CROWDER PA-C Patient complains of: Left leg weakness History of Present Illness: JAEL KEY is a 50 year old female, past medical history of type 2 diabetes on insulin, hypertension, asthma, who came in the ED with chief complaint of left leg weakness that started 1 day prior to admission. Symptoms started around 2 PM with associated dizziness and mild headache. She she did not go to the doctor thinking that it will go away. She does not report any progression of weakness denies any numbness slurring of speech. No prior episodes. Neurologic exam was unremarkable except for mild weakness of the left leg no numbness In emergency room blood pressure is 145/61 heart rate of 74. CBC and CMP unremarkable. CT head negative. MRI of the head showed acute infarct right katelyn. Patient was given aspirin and was admitted for acute stroke Past Medical History Cardiac Medical History: Reports: Hyperlipidema, Hypertension Denies: Myocardial Infarction Pulmonary Medical History: Reports: Asthma EENT Medical History: Reports: Cataracts Neurological Medical History: Denies: Seizures Endocrine Medical History: Reports: Diabetes Mellitus Type 1 Renal/ Medical History: Reports: None Malignancy Medical History: Reports: None GI Medical History: Reports: None Denies: Hepatitis, Hiatal Hernia Skin Medical History: Reports: None Hematology: Denies: Anemia, Sickle Cell Disease Infectious Medical History: Reports: None Past Surgical History Past Surgical History: Reports: Other - History of cataract surgery, laser for retinal detachment Denies: Amputation, Mastectomy, Pacemaker Social History Information Source: Patient Lives with: Family Smoking Status: Never Smoker Frequency of Alcohol Use: None Hx Recreational Drug Use: No Drugs: None Hx Prescription Drug Abuse: No Family History Family History: Reviewed & Not Pertinent, DM, Hypertension Parental Family History Reviewed: Yes Children Family History Reviewed: Yes Sibling(s) Family History Reviewed.: Yes Medication/Allergy Home Medications: Fluticasone Propionate [Flonase Nasal [place] 50 Mcg/[place] 16 gm] 2 spray NASL Q12 11/10/16 Insulin Glargine,Hum.rec.anlog [Lantus] 100 unit SQ QHS 11/10/16 Albuterol Sulfate [Ventolin Hfa 8 gm Mdi (1 Mdi/ER Disp)] 2 puff IH DAILY 10/12/18 Montelukast Sodium [Singulair 10 mg Tablet] 10 mg PO QHS 10/12/18 Omeprazole 40 mg PO DAILY 10/12/18 Chlorpheniramine Maleate [Chlor-Trimeton 4 mg Tablet] 4 mg PO Q4 09/22/19 Losartan/Hydrochlorothiazide [Losartan-Hctz 100-25 mg Tab] 1 each PO DAILY 10/11 Mometasone/Formoterol [Dulera 200 Mcg-5 Mcg Inhaler] 2 puff IH Q12 09/22/19 Multivitamin [Tab-A-Thai (Multiple Vitamin) Tablet] 1 tab PO DAILY 09/22/19 Insulin NPH Hum/Reg Insulin Hm [Relion Novolin 70-30 Vial] 26 unit SQ BID 05/24/20 Insulin Regular, Human [Novolin R] 30 unit SUBCUT BID 05/24/20 Psyllium Husk [Metamucil] 0.4 gm PO BID 05/24/20 Allergies/Adverse Reactions: erythromycin base Allergy (Verified 09/21/19 17:24) ketorolac [From Toradol] Allergy (Verified 09/21/19 17:24) Review of Systems Constitutional: PRESENT: headache(s) Eyes: ABSENT: visual disturbances Ears: ABSENT: hearing changes Cardiovascular: ABSENT: chest pain, edema, orthropnea, palpitations Respiratory: ABSENT: dyspnea Gastrointestinal: ABSENT: abdominal pain, dysphagia, heartburn, hematemesis Genitourinary: ABSENT: dysuria Integumentary: ABSENT: lesions Neurological: PRESENT: abnormal gait, dizziness, focal weakness. ABSENT: confusion, convulsions, paresthesias Psychiatric: ABSENT: suicidal ideation Physical Exam Vital Signs: Temp Pulse Resp BP Pulse Ox 98.0 F 81 14 153/72 H 98 05/24/20 13:53 05/24/20 14:17 05/24/20 16:25 05/24/20 18:02 05/24/20 18:02 Intake & Output 05/23/20 05/24/20 05/25/20 06:59 06:59 06:59 Weight 112.037 kg General appearance: PRESENT: no acute distress, cooperative, morbidly obese Head exam: PRESENT: atraumatic, normocephalic Eye exam: PRESENT: EOMI, PERRLA Ear exam: PRESENT: normal external ear exam Mouth exam: PRESENT: moist, neck supple Neck exam: PRESENT: full ROM. ABSENT: JVD Respiratory exam: PRESENT: clear to auscultation jing, symmetrical, unlabored. ABSENT: crackles, rales Cardiovascular exam: PRESENT: RRR, +S1, +S2 Pulses: PRESENT: +2 pedal pulses bilateral Vascular exam: PRESENT: normal capillary refill GI/Abdominal exam: PRESENT: normal bowel sounds, soft. ABSENT: guarding, tenderness Rectal exam: PRESENT: deferred Extremities exam: PRESENT: full ROM. ABSENT: pedal edema Musculoskeletal exam: PRESENT: full ROM Neurological exam: PRESENT: alert, awake, oriented to person, oriented to place, oriented to time, oriented to situation, CN II-XII grossly intact, motor sensory deficit - 5/5 strength right arm and right leg, 4/5 strength left leg. 5/5 left arm, no numbness, negative Babinski, other Psychiatric exam: PRESENT: normal mood Skin exam: PRESENT: normal color Results Laboratory Results: 05/24/20 14:41 05/24/20 14:41 05/24/20 05/24/20 14:41 14:41 WBC 8.9 RBC 4.78 Hgb 14.8 Hct 42.5 MCV 89 MCH 30.9 MCHC 34.7 RDW 13.8 Plt Count 290 Seg Neutrophils % 59.7 Sodium 141.0 Potassium 3.9 Chloride 105 Carbon Dioxide 29 Anion Gap 7 BUN 15 Creatinine 0.75 Est GFR ( Amer) > 60 Glucose 98 Calcium 9.6 Total Bilirubin 0.5 AST 34 Alkaline Phosphatase 105 Total Protein 7.8 Albumin 4.3 05/24/20 05/24/20 14:41 14:41 Creatine Kinase 117 CK-MB (CK-2) 2.24 Troponin I 0.013 Impressions: Chest X-Ray 05/24/20 14:17 IMPRESSION: No acute cardiopulmonary process. Head CT 05/24/20 14:17 IMPRESSION: No acute intracranial abnormality. EVIDENCE OF ACUTE STROKE: NO. Head MRI 05/24/20 14:47 IMPRESSION: 1. Acute ischemia in the right katelyn. No associated mass effect or evidence of herniation. EVIDENCE OF ACUTE STROKE: Yes RIGHT VERTEBROBASILAR Assessment and Plan - Diagnosis (1) CVA (cerebral vascular accident) Qualifiers: CVA mechanism: thrombosis Precerebral and cerebral artery: other cerebral artery Qualified Code(s): I63.39 - Cerebral infarction due to thrombosis of other cerebral artery Is this a current diagnosis for this admission?: Yes Plan: -symptom started more than 24 hours prior to admission with left leg weakness. Not a TPA candidate. no other neurologic deficit -History of hypertension and diabetes -Initial CT head negative -MRI showed acute ischemia in the right katelyn -Stroke order set used -Echo and ultrasound carotids ordered -Checking lipid panel and A1c -PT OT -Admit to telemetry -Patient started on aspirin, Lipitor -Permissive hypertension for 1 more day, then will resume her home medications losartan with hydrochlorothiazide (2) Diabetes 1.5, managed as type 1 Is this a current diagnosis for this admission?: Yes Plan: -On Lantus 100 units at bedtime, regular insulin 30 in the morning 30 at night, 70/30 26 u am and pm resumed - will check A1C - accucheck - hypoglycemia protocol (3) Hypertension Qualifiers: Hypertension type: essential hypertension Qualified Code(s): I10 - Essential (primary) hypertension Is this a current diagnosis for this admission?: Yes Plan: -Losartan hydrochlorothiazide -Permissive hypertension for another day and then will resume her meds tomorrow (4) Asthma Qualifiers: Asthma severity: mild Asthma persistence: intermittent Is this a current diagnosis for this admission?: Yes Plan: -No wheezing not in exacerbation -Resume her medications tomorrow - Time Time Spent with patient: 25-34 minutes Medications reviewed and adjusted accordingly: Yes Anticipated Discharge Disposition: Home, Self Care Anticipated Discharge Timeframe: within 48 hours - Inpatient Certification Based on my medical assessment, after consideration of the patient's comorbidities, presenting symptoms, or acuity I expect that the services needed warrant INPATIENT care.: Yes I certify that my determination is in accordance with my understanding of Medicare's requirements for reasonable and necessary INPATIENT services [42 CFR 412.3e].: Yes Medical Necessity: Risk of Diagnosis Which Will Require Inpatient Eval/Care/Monitoring
[2020-05-24] MEDS: HUM INSULIN NPH/REG INSULIN HM 100 UNIT/1 ML 3 ML SUBCUT SCH (21:08)
[2020-05-24] MEDS ORDERED: INSULIN GLARGINE,HUM.REC.ANLOG 1,000 UNIT/10 ML VIAL SUBCUT SCH (22:00)
[2020-05-24] MEDS: INSULIN GLARGINE,HUM.REC.ANLOG 1,000 UNIT/10 ML VIAL SUBCUT SCH (22:02)
[2020-05-24] MEDS: ATORVASTATIN CALCIUM 40 MG TABLET PO SCH (22:03)
[2020-05-24] MEDS: HEPARIN SOD (PORCINE) 5,000 UNIT/ML 1 ML VIAL SUBCUT SCH (22:03)
[2020-05-25] MEDS: HEPARIN SOD (PORCINE) 5,000 UNIT/ML 1 ML VIAL SUBCUT SCH ×3 (05:30→21:18)
[2020-05-25] MEDS: PANTOPRAZOLE SODIUM 40 MG TABLET.DR PO SCH (05:30)
[2020-05-25 07:40] LABS: ALBUMIN 3.7 g/dL (3.5-5.0); ALKALINE PHOSPHATASE 99 U/L (38-126); ANION GAP 9 (5-19); ASPARTATE AMINO TRANSFERASE 32 U/L (14-36); BILIRUBIN,DIRECT 0.3 mg/dL (0.0-0.4); BILIRUBIN,TOTAL 0.6 mg/dL (0.2-1.3); BLOOD UREA NITROGEN 14 mg/dL (7-20); CALCIUM 9.3 mg/dL (8.4-10.2); CARBON DIOXIDE 27 mmol/L (22-30); CHLORIDE 103 mmol/L (98-107); CHOLESTEROL 313.54 mg/dL (0-200); GLUCOSE 73 mg/dL (75-110); POTASSIUM 3.9 mmol/L (3.6-5.0); TOTAL PROTEIN 6.5 g/dL (6.3-8.2)
[2020-05-25 07:50] LABS: DIRECT LDL 144 mg/dL (<100)
[2020-05-25 08:00] LABS: TRIGLYCERIDES 820 mg/dL (<150)
[2020-05-25] MEDS: HUM INSULIN NPH/REG INSULIN HM 100 UNIT/1 ML 3 ML SUBCUT SCH ×2 (09:19→17:18)
[2020-05-25] MEDS: ASPIRIN 81 MG TABLET, ENT COATED PO SCH (09:19)
--- NOTE | 2020-05-25 13:06 | PDOC PROGRESS REPORT ---
Subjective Progress Note for:: 05/25/20 Subjective:: Angie Alex 50-year-old female with a past medical history of type 1 diabetes on insulin, asthma, obesity. She was admitted on May 24 due to left leg weakness that started 1 day prior. She came to the ED more than 24 hours after symptom onset hence she was not a candidate for TPA. CT head was negative but MRI revealed acute stroke on the right katelyn. She was admitted for stroke management, echo and carotid ultrasound ordered as well as PT OT evaluation. She was seen and examined at bedside reports no progression of left leg weakness, no new neurologic deficit. Afebrile no chest pain no palpitations no shortness of breath Reason For Visit: CVA INFARCT Physical Exam Vital Signs: Temp Pulse Resp BP Pulse Ox 97.9 F 74 18 126/49 H 94 05/25/20 11:36 05/25/20 12:00 05/25/20 12:00 05/25/20 12:00 05/25/20 12:00 Intake & Output 05/24/20 05/25/20 05/26/20 06:59 06:59 06:59 Output Total 1000 Balance -1000 Weight 111.5 kg General appearance: PRESENT: no acute distress, cooperative Head exam: PRESENT: atraumatic, normocephalic Eye exam: PRESENT: EOMI, PERRLA Ear exam: PRESENT: normal external ear exam Mouth exam: PRESENT: moist Neck exam: PRESENT: full ROM. ABSENT: carotid bruit, JVD Respiratory exam: PRESENT: clear to auscultation jing, symmetrical, unlabored. ABSENT: crackles Cardiovascular exam: PRESENT: RRR, +S1, +S2 Pulses: PRESENT: +2 pedal pulses bilateral Vascular exam: PRESENT: normal capillary refill GI/Abdominal exam: PRESENT: normal bowel sounds, soft. ABSENT: distended, tenderness Extremities exam: ABSENT: pedal edema Musculoskeletal exam: PRESENT: full ROM Neurological exam: PRESENT: alert, awake, oriented to person, oriented to place, oriented to time, other - 4/5 strength left leg, 5/5 left arm. 5/5 strength right upper and lower extremity. No sensory deficit Psychiatric exam: PRESENT: normal mood Results Laboratory Results: 05/24/20 14:41 05/25/20 06:28 05/24/20 05/24/20 05/25/20 14:41 14:41 06:28 WBC 8.9 RBC 4.78 Hgb 14.8 Hct 42.5 MCV 89 MCH 30.9 MCHC 34.7 RDW 13.8 Plt Count 290 Seg Neutrophils % 59.7 Sodium 141.0 138.8 Potassium 3.9 3.9 Chloride 105 103 Carbon Dioxide 29 27 Anion Gap 7 9 BUN 15 14 Creatinine 0.75 0.72 Est GFR ( Amer) > 60 > 60 Glucose 98 73 L Calcium 9.6 9.3 Total Bilirubin 0.5 0.6 AST 34 32 Alkaline Phosphatase 105 99 Total Protein 7.8 6.5 Albumin 4.3 3.7 Triglycerides 820 H Cholesterol 313.54 H LDL Cholesterol Direct 144 H HDL Cholesterol 36 L 05/24/20 05/24/20 14:41 14:41 Creatine Kinase 117 CK-MB (CK-2) 2.24 Troponin I 0.013 Impressions: Chest X-Ray 05/24/20 14:17 IMPRESSION: No acute cardiopulmonary process. Head CT 05/24/20 14:17 IMPRESSION: No acute intracranial abnormality. EVIDENCE OF ACUTE STROKE: NO. Head MRI 05/24/20 14:47 IMPRESSION: 1. Acute ischemia in the right katelyn. No associated mass effect or evidence of h erniation. EVIDENCE OF ACUTE STROKE: Yes RIGHT VERTEBROBASILAR Assessment and Plan - Diagnosis (1) CVA (cerebral vascular accident) Qualifiers: CVA mechanism: thrombosis Precerebral and cerebral artery: other cerebral artery Qualified Code(s): I63.39 - Cerebral infarction due to thrombosis of other cerebral artery Is this a current diagnosis for this admission?: Yes Plan: -symptom started more than 24 hours prior to admission with left leg weakness. Not a TPA candidate. no other neurologic deficit -History of hypertension and diabetes -Initial CT head negative -MRI showed acute ischemia in the right katelyn -Stroke order set used -Echo and ultrasound carotids awaiting result - LDL 144 and A1c 9.7 -PT OT ok to discharge home -Admit to telemetry -continue aspirin, Lipitor -resume losartan/hctz (2) Diabetes 1.5, managed as type 1 Is this a current diagnosis for this admission?: Yes Plan: -On Lantus 100 units at bedtime, regular insulin 30 in the morning 30 at night, 70/30 26 u am and pm resumed - A1C 9.7 - accucheck - hypoglycemia protocol (3) Hypertension Qualifiers: Hypertension type: essential hypertension Qualified Code(s): I10 - Essential (primary) hypertension Is this a current diagnosis for this admission?: Yes Plan: -Losartan hydrochlorothiazide- resumed (4) Asthma Qualifiers: Asthma severity: mild Asthma persistence: intermittent Is this a current diagnosis for this admission?: Yes Plan: -No wheezing not in exacerbation -Resume her medications tomorrow - Time Time Spent with patient: 15-24 minutes Anticipated Discharge Disposition: Home, Self Care Anticipated Discharge Timeframe: within 48 hours
--- NOTE | 2020-05-25 15:18 | CDI QUERY ---
<SHAHIDA TRENT - Last Filed: 05/25/20 15:10> CDI Query CDI Review: Dear Provider, Please further specify type of "weakness" documented in progress notes to capture SOI / ROM LEFT HEMIPLEGIA? LEFT HEMIPARESIS? OTHER? Clinical data: Pt has R katelyn infarct CVA left sided weakness Shahida Ramirez, MAGDI [phone] <NICKOLAS BOYLE - Last Filed: 05/29/20 19:07> CDI Query CDI Review: Patient came in with left hemiparesis.
--- NOTE | 2020-05-25 20:42 | XCELERA REPORT ---
[address] [address] Transthoracic Echocardiogram Report Name: JAEL KEY Age: 50 yrs Gender: Female : 1970 Patient Status: Inpatient Patient Location: [address] [place] [address] Study Date: 05/25/2020 05:57 PM Height: 66 in Weight: 247 lb BSA: 2.2 m2 Procedure: A complete two-dimensional transthoracic echocardiogram was performed (2D, M-mode, spectral and color flow Doppler). The study was technically limited with all images being suboptimal in quality. The subcostal views were difficult to obtain and are suboptimal in quality. Images from the parasternal window were difficult to obtain and are suboptimal in quality. Reason For Study: acute stroke Ordering Physician: NICKOLAS BOYLE Performed By: Teresita Weir Interpretation Summary The left ventricle is grossly normal size. Left ventricular systolic function is normal. The Ejection Fraction estimate is 65-70%. Doppler measurements suggest pseudonormalized left ventricular relaxation, which is associated with grade II/IV or mild to moderate diastolic dysfunction. The left ventricular apex is dyskinetic. There is no thrombus. Mild LAE. Trace MR, mild aortic stenosis with a peak velocity of 2.2 m/s. No prior studies for comparison. MMode/2D Measurements & Calculations RVDd: 3.2 cm LVIDd: 4.4 cm FS: 38.8 % Ao root diam: 2.3 cm IVSd: 1.0 cm LVIDs: 2.7 cm EDV(Teich): 85.8 mlAo root area: LVPWd: 1.0 cm ESV(Teich): 26.2 ml4.3 cm2 EF(Teich): 69.4 % LA dimension: 4.1 cm LVOT diam: 1.5 cm LVLd ap4: 6.2 cm SV(MOD-sp4): LVOT area: EDV(MOD-sp4): 34.0 ml 66.0 ml 1.8 cm2 LVLs ap4: 5.8 cm ESV(MOD-sp4): 32.0 ml EF(MOD-sp4): 51.5 % Doppler Measurements & Calculations MV E max devin: MV P1/2t max devin: Ao V2 max: LV V1 max P.3 cm/sec 162.9 cm/sec 224.1 cm/sec 8.3 mmHg MV A max devin: MV P1/2t: 84.3 msec Ao max PG: LV V1 mean P.2 cm/sec MVA(P1/2t): 2.6 cm2 20.1 mmHg 3.8 mmHg MV E/A: 0.95 MV dec slope: Ao V2 mean: LV V1 max: 132.3 cm/sec 144.1 cm/sec 566.1 cm/sec2 Ao mean PG: LV V1 mean: MV dec time: 0.28 sec 8.8 mmHg 88.3 cm/sec Ao V2 VTI: 48.5 cm LV V1 VTI: KATLYN(I,D): 1.2 cm2 31.4 cm KATLYN(V,D): 1.2 cm2 SV(LVOT): 57.9 ml PA V2 max: MV P1/2t-pr_phl: 128.3 cm/sec 84.3 msec PA max P.6 mmHg Left Ventricle The left ventricle is grossly normal size. Left ventricular systolic function is normal. The Ejection Fraction estimate is 65-70%. Doppler measurements suggest pseudonormalized left ventricular relaxation, which is associated with grade II/IV or mild to moderate diastolic dysfunction. The left ventricular apex is dyskinetic. There is no thrombus. Right Ventricle The right ventricle is normal in size, thickness and function. The right ventricular systolic function is normal. Atria The right atrium is normal. The left atrium is mildly dilated. The interatrial septum is difficult to see, but appears to be grossly normal. Mitral Valve There is moderate mitral leaflet calcification. There is no evidence of mitral valve prolapse. There is no mitral valve stenosis. There is a trace amount of mitral regurgitation. Aortic Valve The aortic valve is mildly calcified. The aortic valve is not well visualized secondary to technical limitations. Mild aortic stenosis with a peak velocity of 2.2 m/s. No aortic regurgitation is present. Tricuspid Valve The tricuspid valve is not well visualized secondary to technical limitations. There is no tricuspid stenosis. No tricuspid regurgitation. Pulmonic Valve The pulmonic valve is not well visualized. There is no pulmonic valvular stenosis. There is no pulmonic valvular regurgitation. Great Vessels The inferior vena cava appeared normal and decreased > 50% with respiration (RAP 5-10 mmHg). Effusions There is no pericardial effusion. There is no pleural effusion. : NICKOLAS BOYLE Antonio
[2020-05-25] MEDS: ATORVASTATIN CALCIUM 40 MG TABLET PO SCH (21:18)
[2020-05-25] MEDS: INSULIN GLARGINE,HUM.REC.ANLOG 1,000 UNIT/10 ML VIAL SUBCUT SCH (21:21)
[2020-05-26] MEDS: PANTOPRAZOLE SODIUM 40 MG TABLET.DR PO SCH (06:05)
[2020-05-26] MEDS: HEPARIN SOD (PORCINE) 5,000 UNIT/ML 1 ML VIAL SUBCUT SCH ×2 (06:05→14:49)
--- NOTE | 2020-05-26 06:49 | PDOC DISCHARGE SUMMARY ---
Impression - Admit/DC Date/PCP Admission Date/Primary Care Provider: 05/24/20 17:01 NIALL CROWDER PA-C Discharge Date: 05/26/20 - Discharge Diagnosis (1) CVA (cerebral vascular accident) Is this a current diagnosis for this admission?: Yes (2) Diabetes 1.5, managed as type 1 Is this a current diagnosis for this admission?: Yes (3) Hypertension Is this a current diagnosis for this admission?: Yes (4) Asthma Is this a current diagnosis for this admission?: Yes - Additional Information Resuscitation Status: Full Code Discharge Diet: Diabetic Discharge Activity: Activity As Tolerated Referrals: DENNIS HAQUE MD [NO LOCAL MD] - 06/05/20 1:30 pm Home Medications: Fluticasone Propionate [Flonase Nasal [place] 50 Mcg/[place] 16 gm] 2 spray NASL Q12 11/10/16 Insulin Glargine,Hum.rec.anlog [Lantus] 100 unit SQ QHS 11/10/16 Albuterol Sulfate [Ventolin Hfa 8 gm Mdi (1 Mdi/ER Disp)] 2 puff IH DAILY 10/12/18 Montelukast Sodium [Singulair 10 mg Tablet] 10 mg PO QHS 10/12/18 Omeprazole 40 mg PO DAILY 10/12/18 Chlorpheniramine Maleate [Chlor-Trimeton 4 mg Tablet] 4 mg PO Q4 09/22/19 Losartan/Hydrochlorothiazide [Losartan-Hctz 100-25 mg Tab] 1 each PO DAILY 09/22/19 Mometasone/Formoterol [Dulera 200 Mcg-5 Mcg Inhaler] 2 puff IH Q12 09/22/19 Multivitamin [Tab-A-Thai (Multiple Vitamin) Tablet] 1 tab PO DAILY 09/22/19 Insulin NPH Hum/Reg Insulin Hm [Relion Novolin 70-30 Vial] 26 unit SQ BID 05/24/20 Insulin Regular, Human [Novolin R] 30 unit SUBCUT BID 05/24/20 Psyllium Husk [Metamucil] 0.4 gm PO BID 05/24/20 History of Present Illiness History of Present Illness: JAEL KEY is a 50 year old female, past medical history of type 2 diabetes on insulin, hypertension, asthma, who came in the ED with chief complaint of left leg weakness that started 1 day prior to admission. Symptoms started around 2 PM with associated dizziness and mild headache. She she did not go to the doctor thinking that it will go away. She does not report any progression of weakness denies any numbness slurring of speech. No prior episodes. Neurologic exam was unremarkable except for mild weakness of the left leg no numbness In emergency room blood pressure is 145/61 heart rate of 74. CBC and CMP unremarkable. CT head negative. MRI of the head showed acute infarct right katelyn. Patient was given aspirin and was admitted for acute stroke Hospital Course Hospital Course: On second day of hospital stay she did not report any progression of left leg hemiparesis. BP has been acceptable. BG slightly elevated. She underwent echo and US carotid. No atrial fibrillation noted on tele monitor. She was continued on aspirin and lipitor. Insulin given as well. PT/OT saw her as well and worked with her. On 3rd day of hospital stay, she remained stable with no new neurologic symptoms and no progression of right hemiparesis hence she was discharged on aspirin, lipitor. She was advised to follow up with her primary care. Physical Exam Vital Signs: Temp Pulse Resp BP Pulse Ox 97.4 F 73 16 139/55 H 96 05/26/20 03:25 05/26/20 04:00 05/26/20 04:00 05/26/20 04:00 05/26/20 04:00 Intake & Output 05/24/20 05/25/20 05/26/20 06:59 06:59 06:59 Intake Total 510 Output Total 1000 750 Balance -1000 -240 Weight 111.5 kg Results Laboratory Results: WBC 8.9 10^3/uL (4.0-10.5) 05/24/20 14:41 RBC 4.78 10^6/uL (3.72-5.28) 05/24/20 14:41 Hgb 14.8 g/dL (12.0-15.5) 05/24/20 14:41 Hct 42.5 % (36.0-47.0) 05/24/20 14:41 MCV 89 fl (80-97) 05/24/20 14:41 MCH 30.9 pg (27.0-33.4) 05/24/20 14:41 MCHC 34.7 g/dL (32.0-36.0) 05/24/20 14:41 RDW 13.8 % (11.5-14.0) 05/24/20 14:41 Plt Count 290 10^3/uL (150-450) 05/24/20 14:41 Lymph % (Auto) 31.0 % (13-45) 05/24/20 14:41 [place] % (Auto) 7.0 % (3-13) 05/24/20 14:41 Eos % (Auto) 1.5 % (0-6) 05/24/20 14:41 Baso % (Auto) 0.8 % (0-2) 05/24/20 14:41 Absolute Neuts (auto) 5.3 10^3/uL (1.7-8.2) 05/24/20 14:41 Absolute Lymphs (auto) 2.8 10^3/uL (0.5-4.7) 05/24/20 14:41 Absolute Monos (auto) 0.6 10^3/uL (0.1-1.4) 05/24/20 14:41 Absolute Eos (auto) 0.1 10^3/uL (0.0-0.6) 05/24/20 14:41 Absolute Basos (auto) 0.1 10^3/uL (0.0-0.2) 05/24/20 14:41 Seg Neutrophils % 59.7 % (42-78) 05/24/20 14:41 PT 11.8 SEC (11.4-15.4) 05/24/20 14:41 INR 0.85 05/24/20 14:41 APTT 28.0 SEC (23.5-35.8) 05/24/20 14:41 Sodium 138.8 mmol/L (137-145) 05/25/20 06:28 Potassium 3.9 mmol/L (3.6-5.0) 05/25/20 06:28 Chloride 103 mmol/L (98-107) 05/25/20 06:28 Carbon Dioxide 27 mmol/L (22-30) 05/25/20 06:28 Anion Gap 9 (5-19) 05/25/20 06:28 BUN 14 mg/dL (7-20) 05/25/20 06:28 Creatinine 0.72 mg/dL (0.52-1.25) 05/25/20 06:28 Est GFR ( Amer) > 60 (>60) 05/25/20 06:28 Est GFR (MDRD) Non-Af > 60 (>60) 05/25/20 06:28 Glucose 73 mg/dL (75-110) L 05/25/20 06:28 POC Glucose 143 mg/dL (70-110) H 05/25/20 21:01 Hemoglobin A1c % 9.7 % (4.7-6.0) H 05/25/20 06:28 Calcium 9.3 mg/dL (8.4-10.2) 05/25/20 06:28 Total Bilirubin 0.6 mg/dL (0.2-1.3) 05/25/20 06:28 Direct Bilirubin 0.3 mg/dL (0.0-0.4) 05/25/20 06:28 Neonat Total Bilirubin Not Reportable 05/25/20 06:28 Neonat Direct Bilirubin Not Reportable 05/25/20 06:28 Neonat Indirect Bili Not Reportable 05/25/20 06:28 AST 32 U/L (14-36) 05/25/20 06:28 ALT 27 U/L (<35) 05/25/20 06:28 Alkaline Phosphatase 99 U/L (38-126) 05/25/20 06:28 Creatine Kinase 117 U/L (30-135) 05/24/20 14:41 CK-MB (CK-2) 2.24 ng/mL (<4.55) 05/24/20 14:41 Troponin I 0.013 ng/mL 05/24/20 14:41 Total Protein 6.5 g/dL (6.3-8.2) 05/25/20 06:28 Albumin 3.7 g/dL (3.5-5.0) 05/25/20 06:28 Triglycerides 820 mg/dL (<150) H 05/25/20 06:28 Cholesterol 313.54 mg/dL (0-200) H 05/25/20 06:28 LDL Cholesterol Direct 144 mg/dL (<100) H 05/25/20 06:28 VLDL Cholesterol, Calc UNABLE TO CALCULATE 05/25/20 06:28 HDL Cholesterol 36 mg/dL (>40) L 05/25/20 06:28 05/24/20 14:41 CK-MB (CK-2) 2.24 Troponin I 0.013 Impressions: Chest X-Ray 05/24/20 14:17 IMPRESSION: No acute cardiopulmonary process. Head CT 05/24/20 14:17 IMPRESSION: No acute intracranial abnormality. EVIDENCE OF ACUTE STROKE: NO. Head MRI 05/24/20 14:47 IMPRESSION: 1. Acute ischemia in the right katelyn. No associated mass effect or evidence of herniation. EVIDENCE OF ACUTE STROKE: Yes RIGHT VERTEBROBASILAR Plan Plan of Treatment: - to be discharged on aspirin and lipitor - advised diet, lifestyle modification and exercise. Stroke Is this a Stroke Patient?: Yes Stroke Pt being discharged on Anti-thrombolytic therapy?: Yes Stroke Pt being discharged on Anti-coagulation therapy?: No Reason(s) for not prescribing Anti-coagulation therapy:: Not indicated Stroke Pt being discharged on Statins?: Yes Acute Heart Failure - Is this a Heart Failure Patient?: No
[2020-05-26] MEDS: ASPIRIN 81 MG TABLET, ENT COATED PO SCH (10:10)
[2020-05-26] MEDS: HUM INSULIN NPH/REG INSULIN HM 100 UNIT/1 ML 3 ML SUBCUT SCH (10:10)
[2020-05-26 12:57] VITALS: BP 149/77
--- NOTE | 2020-05-26 14:43 | PDOC DISCHARGE SUMMARY ---
Impression - Admit/DC Date/PCP Admission Date/Primary Care Provider: 05/24/20 17:01 NIALL CROWDER PA-C Discharge Date: 05/26/20 - Discharge Diagnosis (1) CVA (cerebral vascular accident) Is this a current diagnosis for this admission?: Yes (2) Diabetes 1.5, managed as type 1 Is this a current diagnosis for this admission?: Yes (3) Hypertension Is this a current diagnosis for this admission?: Yes (4) Asthma Is this a current diagnosis for this admission?: Yes - Additional Information Resuscitation Status: Full Code Discharge Diet: Diabetic Discharge Activity: Activity As Tolerated Referrals: DENNIS HAQUE MD [NO LOCAL MD] - 06/05/20 1:30 pm Prescriptions: Aspirin [Ecotrin 81 mg EC Tablet] 81 mg PO DAILY 60 Days #60 tabec Atorvastatin Calcium [Lipitor 40 mg Tablet] 40 mg PO QHS 60 Days #60 tablet Home Medications: Fluticasone Propionate [Flonase Nasal Montgomery 50 Mcg/Montgomery 16 gm] 2 spray NASL Q12 11/10/16 Insulin Glargine,Hum.rec.anlog [Lantus] 100 unit SQ QHS 11/10/16 Albuterol Sulfate [Ventolin Hfa 8 gm Mdi (1 Mdi/ER Disp)] 2 puff IH DAILY 10/12/18 Montelukast Sodium [Singulair 10 mg Tablet] 10 mg PO QHS 10/12/18 Omeprazole 40 mg PO DAILY 10/12/18 Chlorpheniramine Maleate [Chlor-Trimeton 4 mg Tablet] 4 mg PO Q4 09/22/19 Losartan/Hydrochlorothiazide [Losartan-Hctz 100-25 mg Tab] 1 each PO DAILY 09/22/19 Mometasone/Formoterol [Dulera 200 Mcg-5 Mcg Inhaler] 2 puff IH Q12 09/22/19 Multivitamin [Tab-A-Thai (Multiple Vitamin) Tablet] 1 tab PO DAILY 09/22/19 Insulin NPH Hum/Reg Insulin Hm [Relion Novolin 70-30 Vial] 26 unit SQ BID 05/24/20 Insulin Regular, Human [Novolin R] 30 unit SUBCUT BID 05/24/20 Psyllium Husk [Metamucil] 0.4 gm PO BID 05/24/20 Aspirin [Ecotrin 81 mg EC Tablet] 81 mg PO DAILY 60 Days #60 tabec 05/26/20 Atorvastatin Calcium [Lipitor 40 mg Tablet] 40 mg PO QHS 60 Days #60 tablet 05/26/20 Hospital Course Hospital Course: On second day of hospital stay she did not report any progression of left leg hemiparesis. BP has been acceptable. BG slightly elevated. She underwent echo and US carotid. No atrial fibrillation noted on tele monitor. She was continued on aspirin and lipitor. Insulin given as well. PT/OT saw her as well and worked with her. On 3rd day of hospital stay, she remained stable with no new neurologic symptoms and no progression of right hemiparesis hence she was discharged on aspirin, lipitor. She was advised to follow up with her primary care. Physical Exam Vital Signs: Temp Pulse Resp BP Pulse Ox 98.2 F 83 20 149/77 H 94 05/26/20 11:28 05/26/20 12:00 05/26/20 12:00 05/26/20 12:00 05/26/20 12:00 Intake & Output 05/25/20 05/26/20 05/27/20 06:59 06:59 06:59 Intake Total 510 480 Output Total 1000 1250 Balance -1000 -740 480 Weight 111.5 kg 113.6 kg Results Laboratory Results: WBC 8.9 10^3/uL (4.0-10.5) 05/24/20 14:41 RBC 4.78 10^6/uL (3.72-5.28) 05/24/20 14:41 Hgb 14.8 g/dL (12.0-15.5) 05/24/20 14:41 Hct 42.5 % (36.0-47.0) 05/24/20 14:41 MCV 89 fl (80-97) 05/24/20 14:41 MCH 30.9 pg (27.0-33.4) 05/24/20 14:41 MCHC 34.7 g/dL (32.0-36.0) 05/24/20 14:41 RDW 13.8 % (11.5-14.0) 05/24/20 14:41 Plt Count 290 10^3/uL (150-450) 05/24/20 14:41 Lymph % (Auto) 31.0 % (13-45) 05/24/20 14:41 Buchanan % (Auto) 7.0 % (3-13) 05/24/20 14:41 Eos % (Auto) 1.5 % (0-6) 05/24/20 14:41 Baso % (Auto) 0.8 % (0-2) 05/24/20 14:41 Absolute Neuts (auto) 5.3 10^3/uL (1.7-8.2) 05/24/20 14:41 Absolute Lymphs (auto) 2.8 10^3/uL (0.5-4.7) 05/24/20 14:41 Absolute Monos (auto) 0.6 10^3/uL (0.1-1.4) 05/24/20 14:41 Absolute Eos (auto) 0.1 10^3/uL (0.0-0.6) 05/24/20 14:41 Absolute Basos (auto) 0.1 10^3/uL (0.0-0.2) 05/24/20 14:41 Seg Neutrophils % 59.7 % (42-78) 05/24/20 14:41 PT 11.8 SEC (11.4-15.4) 05/24/20 14:41 INR 0.85 05/24/20 14:41 APTT 28.0 SEC (23.5-35.8) 05/24/20 14:41 Sodium 138.8 mmol/L (137-145) 05/25/20 06:28 Potassium 3.9 mmol/L (3.6-5.0) 05/25/20 06:28 Chloride 103 mmol/L (98-107) 05/25/20 06:28 Carbon Dioxide 27 mmol/L (22-30) 05/25/20 06:28 Anion Gap 9 (5-19) 05/25/20 06:28 BUN 14 mg/dL (7-20) 05/25/20 06:28 Creatinine 0.72 mg/dL (0.52-1.25) 05/25/20 06:28 Est GFR ( Amer) > 60 (>60) 05/25/20 06:28 Est GFR (MDRD) Non-Af > 60 (>60) 05/25/20 06:28 Glucose 73 mg/dL (75-110) L 05/25/20 06:28 POC Glucose 192 mg/dL (70-110) H 05/26/20 11:10 Hemoglobin A1c % 9.7 % (4.7-6.0) H 05/25/20 06:28 Calcium 9.3 mg/dL (8.4-10.2) 05/25/20 06:28 Total Bilirubin 0.6 mg/dL (0.2-1.3) 05/25/20 06:28 Direct Bilirubin 0.3 mg/dL (0.0-0.4) 05/25/20 06:28 Neonat Total Bilirubin Not Reportable 05/25/20 06:28 Neonat Direct Bilirubin Not Reportable 05/25/20 06:28 Neonat Indirect Bili Not Reportable 05/25/20 06:28 AST 32 U/L (14-36) 05/25/20 06:28 ALT 27 U/L (<35) 05/25/20 06:28 Alkaline Phosphatase 99 U/L (38-126) 05/25/20 06:28 Creatine Kinase 117 U/L (30-135) 05/24/20 14:41 CK-MB (CK-2) 2.24 ng/mL (<4.55) 05/24/20 14:41 Troponin I 0.013 ng/mL 05/24/20 14:41 Total Protein 6.5 g/dL (6.3-8.2) 05/25/20 06:28 Albumin 3.7 g/dL (3.5-5.0) 05/25/20 06:28 Triglycerides 820 mg/dL (<150) H 05/25/20 06:28 Cholesterol 313.54 mg/dL (0-200) H 05/25/20 06:28 LDL Cholesterol Direct 144 mg/dL (<100) H 05/25/20 06:28 VLDL Cholesterol, Calc UNABLE TO CALCULATE 05/25/20 06:28 HDL Cholesterol 36 mg/dL (>40) L 05/25/20 06:28 05/24/20 14:41 CK-MB (CK-2) 2.24 Troponin I 0.013 Impressions: Chest X-Ray 05/24/20 14:17 IMPRESSION: No acute cardiopulmonary process. Head CT 05/24/20 14:17 IMPRESSION: No acute intracranial abnormality. EVIDENCE OF ACUTE STROKE: NO. Head MRI 05/24/20 14:47 IMPRESSION: 1. Acute ischemia in the right katelyn. No associated mass effect or evidence of herniation. EVIDENCE OF ACUTE STROKE: Yes RIGHT VERTEBROBASILAR Plan Plan of Treatment: - to be discharged on aspirin and lipitor - advised diet, lifestyle modification and exercise. Stroke Stroke Pt being discharged on Anti-thrombolytic therapy?: Yes Stroke Pt being discharged on Anti-coagulation therapy?: No Reason(s) for not prescribing Anti-coagulation therapy:: Not indicated Stroke Pt being discharged on Statins?: Yes
--- NOTE | 2020-05-27 15:30 | RADIOLOGY REPORT (SQ) ---
EXAM DESCRIPTION: CAROTID DOPPLER IMAGES COMPLETED DATE/TIME: 05/25/2020 7:52 pm REASON FOR STUDY: acute stroke COMPARISON: None. TECHNIQUE: Grayscale ultrasound, Doppler velocity and spectra, and color Doppler images acquired of the extra-cranial carotid and vertebral arteries. Images stored on PACS. LIMITATIONS: None. FINDINGS: RIGHT CAROTID CCA Velocities: Within normal limits. ICA Velocities Peak systolic 1.16 m/s. End diastolic 0.32 m/s. Proximal ICA/CCA peak systolic ratio 1.6. Spectra normal. No significant plaque. LEFT CAROTID CCA Velocities: Within normal limits. ICA Velocities Peak systolic 0.92 m/s. End diastolic 0.22 m/s. Proximal ICA/CCA peak systolic ratio 1.0. Spectra normal. No significant plaque. VERTEBRAL ARTERIES: Antegrade flow. Normal waveforms. SUBCLAVIAN ARTERIES: Not imaged. OTHER: No other significant finding. IMPRESSION: NO HEMODYNAMICALLY SIGNIFICANT STENOSIS. COMMENT: Quality ID #[id number]: Velocity criteria are extrapolated from the diameter data as defined by t he Society of Radiologists in Ultrasound Consensus Conference. Radiology 2003: 229; 340-346. TECHNICAL DOCUMENTATION: JOB ID: [id number] 2010 [employer]- All Rights Reserved Reading location - IP/workstation name: [email or web address]
== END 2020-05-26 18:39 | disposition home or self-care (01) | DRG 66 ==
LOC: ER 13:46 → EH 16:16 → OBSVTOIN 17:01 → 3S 18:42
PROVIDERS: ADMIT Internal Medicine; ATTEND Internal Medicine
DX: I63.011 Cerebral infarction due to thrombosis of right vertebral artery (principal); E78.5 Hyperlipidemia, unspecified; I10 Essential (primary) hypertension; G83.14 Monoplegia of lower limb affecting left nondominant side; E11.9 Type 2 diabetes mellitus without complications; J45.20 Mild intermittent asthma, uncomplicated; E66.9 Obesity, unspecified; Z83.3 Family history of diabetes mellitus; Z82.49 Family history of ischemic heart disease and other diseases of the circulatory system; Z79.4 Long term (current) use of insulin; Z79.899 Other long term (current) drug therapy; Z79.51 Long term (current) use of inhaled steroids; Z88.1 Allergy status to other antibiotic agents
CPT/HCPCS: 36415; 70450; 70551; 71045; 80053; 80061; 82550; 82553; 82962; 83036; 84484; 85025; 85610; 85730; 93005; 93010; 93306; 93880; 99285; J1644; J1815; J3490